=== PATIENT | male | born 1940 | race Caucasian/White ===

== ENCOUNTER → 2021-11-13 | Outpatient (CLI) | payer MEDICARE | END | disposition home or self-care (01) | LOC: SHCH 13:47 | PROVIDERS: ATTEND Internal Medicine Cardiovascular Disease | DX: I08.0 Rheumatic disorders of both mitral and aortic valves (principal); I11.9 Hypertensive heart disease without heart failure | CPT/HCPCS: 93306; 93356 ==

== ENCOUNTER → 2023-04-20 | Emergency (ER) | payer OTHER, MEDICARE ==
[~2023-04-20] VITALS: Ht 185.4 cm; Wt 104.3 kg
[~2023-04-20] MED LIST: APIX5TAB PO; ATOR20TA65 PO; Flecainide Acetate PO; GABA600T10 PO; IBUP-2070 PO; IBUPROFEN 600 MG TABLET PO ONE; METH-386 PO; METO50 PO; TETANUS/DIPHTHERIA TOXOID [ADULT] 0.5 ML VIAL IM ONE; VERA240T95 PO
[2023-04-20 12:44] VITALS: BP 126/74
== END ==
LOC: EDH 10:36
DX: S93.401A Sprain of unspecified ligament of right ankle, initial encounter (principal); S60.221A Contusion of right hand, initial encounter; S90.511A Abrasion, right ankle, initial encounter; I48.91 Unspecified atrial fibrillation; I10 Essential (primary) hypertension; Z79.01 Long term (current) use of anticoagulants; Z79.899 Other long term (current) drug therapy; Z85.46 Personal history of malignant neoplasm of prostate; Z90.49 Acquired absence of other specified parts of digestive tract; Z90.79 Acquired absence of other genital organ(s); W01.10XA Fall on same level from slipping, tripping and stumbling with subsequent striking against unspecified object, initial encounter; Y93.01 Activity, walking, marching and hiking; Y92.89 Other specified places as the place of occurrence of the external cause; Y99.8 Other external cause status
CPT/HCPCS: 73120; 73600; 90471; 90714; 93005

== ENCOUNTER → 2023-09-01 | Outpatient (CLI) | payer MEDICARE ==
[~2023-09-01] MED LIST changes: +FERR324T PO; -IBUP-2070 PO; -IBUPROFEN 600 MG TABLET PO ONE; +LUTE6CAP2 PO; +METO25TA6 PO; -METO50 PO; +NYSTPW TP; -TETANUS/DIPHTHERIA TOXOID [ADULT] 0.5 ML VIAL IM ONE
[2023-09-01 16:34] LABS: CREATININE 1.4 mg/dL (0.5-1.5); POTASSIUM 4.4 mmol/L (3.5-5.1)
== END | disposition home or self-care (01) ==
LOC: LAB 12:36
PROVIDERS: ATTEND Internal Medicine Cardiovascular Disease
DX: I95.1 Orthostatic hypotension (principal)
CPT/HCPCS: 36415; 80048; 83735

== ENCOUNTER → 2023-09-12 | Outpatient (CLI) | payer MEDICARE | END | disposition home or self-care (01) | LOC: RAH 09:23 | PROVIDERS: ATTEND Family Medicine | DX: N50.3 Cyst of epididymis (principal); N45.2 Orchitis | CPT/HCPCS: 76870 ==

== ENCOUNTER 2023-12-06 17:21 | Observation (INO) | payer MEDICARE ==
[~2023-12-06] VITALS: Ht 185.4 cm; Wt 95.3 kg
[2023-12-06 17:52] LABS: BASOPHILS # (AUTO) 0.04 K/uL (0.00-0.20); BASOPHILS % (AUTO) 0.5 % (0.0-5.0); EOSINOPHILS # (AUTO) 0.26 K/uL (0.00-0.70); EOSINOPHILS % (AUTO) 3.5 % (0.0-8.0); HEMATOCRIT 38.4 % (42-54); IMMATURE GRANULOCYTE ABSOLUTE 0.02 K/uL (0-1); LYMPHOCYTES # (AUTO) 0.5 K/uL (1.0-4.8); LYMPHOCYTES % (AUTO) 6.2 % (21.0-51.0); MEAN CORPUSCULAR HEMOGLOBIN 27.9 pg (27.0-33.0); MEAN CORPUSCULAR HGB CONC 31.3 g/dL (32.0-36.0); MEAN CORPUSCULAR VOLUME 89.3 fL (79-99); MONOCYTES # (AUTO) 0.8 K/uL (0.1-1.0); MONOCYTES % (AUTO) 11.2 % (3.0-13.0); NEUTROPHILS # (AUTO) 5.9 K/uL (1.8-7.7); NEUTROPHILS % (AUTO) 78.3 % (40.0-77.0); PLATELET COUNT (AUTO) 259 K/uL (130-400); RED CELL DISTRIBUTION WIDTH 15.8 % (11.0-15.5); WHITE BLOOD COUNT (AUTO) 7.5 K/uL (4.8-10.8)
[2023-12-06 18:05] LABS: CREATININE 1.3 mg/dL (0.5-1.5); POTASSIUM 4.1 mmol/L (3.5-5.1)
[2023-12-06 18:15] LABS: ALBUMIN 2.8 g/dL (3.5-5.0); BILIRUBIN,TOTAL 0.6 mg/dL (0.2-1.0); MAGNESIUM 2.2 mg/dL (1.80-2.40); TOTAL PROTEIN, SERUM 6.7 g/dL (6.0-8.3)
[2023-12-06] MEDS ORDERED: IOHEXOL 350 MG/ML 100ML INFUS..BTL IV ONE ×2 (21:58→22:21)
[2023-12-06] MEDS ORDERED: HYDROCODONE/ACETAMINOPHEN 5/325 MG TAB PO PRN (22:00)
[2023-12-06] MEDS ORDERED: ZOLPIDEM TARTRATE 5 MG TAB PO PRN (22:00)
[2023-12-06] MEDS ORDERED: ACETAMINOPHEN 325 MG TAB PO PRN ×2 (22:00)
[2023-12-06] MEDS ORDERED: HYDRALAZINE 20MG/ML VIAL IV PRN (22:00)
[2023-12-06] MEDS ORDERED: ONDANSETRON 4MG INJ IV PRN (22:00)
[2023-12-06] MEDS ORDERED: LACTULOSE 20 GM/30 ML UDCUP PO PRN (22:00)
[2023-12-06] MEDS ORDERED: NITROGLYCERIN 0.4 MG SL TAB SL PRN (22:00)
[2023-12-06] MEDS ORDERED: GUAIFENESIN-DM 200/20 MG 10 ML PO PRN (22:00)
[2023-12-06] MEDS ORDERED: ACETAMINOPHEN WITH CODEINE 1 TAB TAB PO PRN (22:00)
[2023-12-06] MEDS ORDERED: MAG/ALUM/SIMETH 30 ML UDCUP PO PRN (22:00)
[2023-12-06] MEDS ORDERED: ALBUTEROL 0.083% 2.5 MG/3 ML INH IH PRN (22:00)
[2023-12-06] MEDS ORDERED: DiphenhydrAMINE HCL 50 MG/ML VIAL IV PRN (22:00)
[2023-12-07] VITALS (9 sets, daily range): BP systolic 98–155; BP diastolic 71–80; PULSE 63–120; RESP 18–20; O2SAT 97–99
[2023-12-07] MEDS: LACTATED RINGERS 1000ML 1,000 ML IV SCH ×2 (01:39→18:16)
[2023-12-07] MEDS ORDERED: GABAPENTIN 300 MG CAPSULE PO SCH ×2 (02:00→21:00)
[2023-12-07 03:36] LABS: BASOPHILS # (AUTO) 0.04 K/uL (0.00-0.20); BASOPHILS % (AUTO) 0.6 % (0.0-5.0); EOSINOPHILS # (AUTO) 0.24 K/uL (0.00-0.70); EOSINOPHILS % (AUTO) 3.5 % (0.0-8.0); HEMATOCRIT 35.5 % (42-54); IMMATURE GRANULOCYTE ABSOLUTE 0.02 K/uL (0-1); LYMPHOCYTES # (AUTO) 0.5 K/uL (1.0-4.8); LYMPHOCYTES % (AUTO) 7.7 % (21.0-51.0); MEAN CORPUSCULAR HEMOGLOBIN 28.1 pg (27.0-33.0); MEAN CORPUSCULAR HGB CONC 31.8 g/dL (32.0-36.0); MEAN CORPUSCULAR VOLUME 88.3 fL (79-99); MONOCYTES # (AUTO) 0.8 K/uL (0.1-1.0); MONOCYTES % (AUTO) 10.9 % (3.0-13.0); NEUTROPHILS # (AUTO) 5.3 K/uL (1.8-7.7); PLATELET COUNT (AUTO) 258 K/uL (130-400); RED BLOOD CELL COUNT(AUTO) 4.02 MIL/uL (4.50-6.20); RED CELL DISTRIBUTION WIDTH 15.8 % (11.0-15.5); WHITE BLOOD COUNT (AUTO) 6.9 K/uL (4.8-10.8)
[2023-12-07 03:50] LABS: HEMOGLOBIN A1C 5.4 % (4.0-6.0)
[2023-12-07 03:58] LABS: ALANINE AMINOTRANSFERASE 12 U/L (12-78); ALBUMIN 2.6 g/dL (3.5-5.0); AMMONIA < 10 umol/L (11-32); ASPARTATE AMINOTRANSFERASE 12 U/L (10-37); BILIRUBIN,TOTAL 0.8 mg/dL (0.2-1.0); CARBON DIOXIDE 29 mmol/L (21-32); CHLORIDE 103 mmol/L (101-111); CREATINE KINASE, TOTAL 55 U/L (21-232); CREATININE 1.3 mg/dL (0.5-1.5); GLOMERULAR FILTR. RATE CALC 54 mL/min (>90); GLUCOSE,RANDOM 123 mg/dL (70-105); POTASSIUM 4.3 mmol/L (3.5-5.1); SODIUM SERUM 137 mmol/L (136-145); TOTAL PROTEIN, SERUM 6.3 g/dL (6.0-8.3); UREA NITROGEN, BLOOD 20 mg/dL (7-18)
[2023-12-07] MEDS ORDERED: [UNRECOGNIZED DRUG - OTHER] OU (04:44)
[2023-12-07] MEDS ORDERED: FAMOTIDINE 20MG VIAL IV SCH (09:00)
[2023-12-07] MEDS: FAMOTIDINE 20MG VIAL IV SCH (09:07)
[2023-12-07] MEDS: AMOX/CLAV 875/125MG TAB PO SCH (17:33)
[2023-12-08 00:51] VITALS: BP 123/70; PULSE 83; RESP 18
[2023-12-08] MEDS: AMOX/CLAV 875/125MG TAB PO SCH ×2 (01:09→13:53)
[2023-12-08] MEDS ORDERED: METOPROLOL TARTRATE 1 MG/ML 5ML VIAL IV ONE (04:00)
[2023-12-08 05:02] LABS: BASOPHILS # (AUTO) 0.04 K/uL (0.00-0.20); BASOPHILS % (AUTO) 0.6 % (0.0-5.0); EOSINOPHILS # (AUTO) 0.27 K/uL (0.00-0.70); EOSINOPHILS % (AUTO) 4.2 % (0.0-8.0); HEMATOCRIT 36.7 % (42-54); IMMATURE GRANULOCYTE ABSOLUTE 0.03 K/uL (0-1); LYMPHOCYTES # (AUTO) 0.5 K/uL (1.0-4.8); MEAN CORPUSCULAR HEMOGLOBIN 28.2 pg (27.0-33.0); MEAN CORPUSCULAR HGB CONC 31.6 g/dL (32.0-36.0); MEAN CORPUSCULAR VOLUME 89.3 fL (79-99); MONOCYTES # (AUTO) 0.9 K/uL (0.1-1.0); MONOCYTES % (AUTO) 13.7 % (3.0-13.0); NEUTROPHILS # (AUTO) 4.7 K/uL (1.8-7.7); PLATELET COUNT (AUTO) 245 K/uL (130-400); RED BLOOD CELL COUNT(AUTO) 4.11 MIL/uL (4.50-6.20); RED CELL DISTRIBUTION WIDTH 15.6 % (11.0-15.5); WHITE BLOOD COUNT (AUTO) 6.5 K/uL (4.8-10.8)
[2023-12-08 05:16] LABS: ALBUMIN 2.5 g/dL (3.5-5.0); BILIRUBIN,TOTAL 0.7 mg/dL (0.2-1.0); CREATININE 1.2 mg/dL (0.5-1.5); MAGNESIUM 2.1 mg/dL (1.80-2.40); POTASSIUM 3.9 mmol/L (3.5-5.1); TOTAL PROTEIN, SERUM 6.1 g/dL (6.0-8.3)
[2023-12-08] MEDS ORDERED: METOPROLOL TARTRATE 25 MG TAB ONE (05:39)
[2023-12-08 05:45] VITALS: BP 115/63; PULSE 85; RESP 18
[2023-12-08 08:00] VITALS: BP 91/62; PULSE 83; RESP 18; O2SAT 99
[2023-12-08] MEDS: FAMOTIDINE 20MG VIAL IV SCH (08:19)
[2023-12-08] MEDS ORDERED: METOPROLOL TARTRATE 25 MG TAB PO SCH (09:00)
[2023-12-08] MEDS ORDERED: APIXABAN 5 MG TABLET PO SCH (09:00)
[2023-12-08 12:00] VITALS: BP 94/66; PULSE 91; RESP 18
[2023-12-08] MEDS ORDERED: AMOX1TAB16 PO (13:22)
== END 2023-12-08 14:50 | disposition home or self-care (01) ==
LOC: EDH 17:21 → EDHIP 17:22 → UNDOADMOB 17:22 → EDHIP 21:40 → 4BH 12-07 04:37
PROVIDERS: ADMIT Internal Medicine Critical Care Medicine; ATTEND Internal Medicine Critical Care Medicine
DX: H70.001 Acute mastoiditis without complications, right ear (principal); I48.91 Unspecified atrial fibrillation; J43.8 Other emphysema; J32.0 Chronic maxillary sinusitis; I10 Essential (primary) hypertension; N17.9 Acute kidney failure, unspecified; E78.5 Hyperlipidemia, unspecified; E46 Unspecified protein-calorie malnutrition; E66.01 Morbid (severe) obesity due to excess calories; R55 Syncope and collapse; G45.9 Transient cerebral ischemic attack, unspecified; R29.700 NIHSS score 0; K56.609 Unspecified intestinal obstruction, unspecified as to partial versus complete obstruction; Z85.46 Personal history of malignant neoplasm of prostate; Z85.51 Personal history of malignant neoplasm of bladder; Z85.72 Personal history of non-Hodgkin lymphomas; Z85.828 Personal history of other malignant neoplasm of skin; Z79.01 Long term (current) use of anticoagulants; Z93.3 Colostomy status; Z68.27 Body mass index [BMI] 27.0-27.9, adult; Z86.2 Personal history of diseases of the blood and blood-forming organs and certain disorders involving the immune mechanism; Z79.899 Other long term (current) drug therapy
CPT/HCPCS: 70450; 99285; 83735 ×3; 84484 ×2; 80053 ×3; 83880 ×2; 85025 ×3; 36415 ×3; 71045; 70496; 70498; 93880; 93005; 96374; 96361; 83036; 82550; 82140; 87077; 87088; 87186; 83605; 93306; 93356; 97161; 97116; 97530 ×2; 92522; 92610; 84145; 96376; 96375; G0378 ×38; Q9967; J3490 ×3; G8980-CI; G8983-CI

== ENCOUNTER → 2023-12-26 | Outpatient (CLI) | payer MEDICARE ==
[~2023-12-26] MED LIST changes: +AMOX1TAB16 PO; -ATOR20TA65 PO; +[UNRECOGNIZED DRUG - OTHER] OU
[2023-12-26] MEDS: REGADENOSON 0.4 MG/5 ML PF SYG IVP ONE (11:36)
== END | disposition home or self-care (01) ==
LOC: SHCH 09:16
PROVIDERS: ATTEND Internal Medicine Cardiovascular Disease
DX: I47.10 Supraventricular tachycardia, unspecified (principal); I42.0 Dilated cardiomyopathy; I95.1 Orthostatic hypotension; I48.0 Paroxysmal atrial fibrillation; E03.9 Hypothyroidism, unspecified; Z79.899 Other long term (current) drug therapy
CPT/HCPCS: 78452; 96374; 93017; J2785; A9500 ×2

== ENCOUNTER → 2024-02-23 | Outpatient (CLI) | payer MEDICARE ==
[~2024-02-23] MED LIST changes: -AMOX1TAB16 PO; +ATOR20TA65 PO; +DOCU-116 PO; +DRON400T7 PO; +FAMO20TA8 PO; -Flecainide Acetate PO; +LEVO750T68 PO; -VERA240T95 PO; -[UNRECOGNIZED DRUG - OTHER] OU; +[UNRECOGNIZED DRUG - OTHER] PO
[2024-02-23 12:37] LABS: CREATININE 1.3 mg/dL (0.5-1.3); POTASSIUM 4.5 mmol/L (3.5-5.1)
== END | disposition home or self-care (01) ==
LOC: LAB 09:54
PROVIDERS: ATTEND Internal Medicine Cardiovascular Disease
DX: I50.22 Chronic systolic (congestive) heart failure (principal)
CPT/HCPCS: 36415; 80048

== ENCOUNTER → 2024-04-13 | Outpatient (CLI) | payer MEDICARE ==
[2024-04-13 12:13] LABS: CREATININE 1.3 mg/dL (0.5-1.3); POTASSIUM 4.9 mmol/L (3.5-5.1)
== END | disposition home or self-care (01) ==
LOC: LAB 08:13
PROVIDERS: ATTEND Internal Medicine Cardiovascular Disease
DX: I10 Essential (primary) hypertension (principal)
CPT/HCPCS: 36415; 80048

== ENCOUNTER 2024-10-20 18:05 | Emergency (ER) | payer MEDICARE ==
[~2024-10-20] VITALS: Ht 188 cm; Wt 81.6 kg
[~2024-10-20 18:05] MED LIST changes: +GABA-1405 PO; -GABA600T10 PO
[2024-10-20] MEDS ORDERED: APIX5TAB PO (19:01)
[2024-10-20] MEDS ORDERED: CYAN-35 PO (19:01)
[2024-10-20] MEDS ORDERED: DRON400T7 PO (19:01)
[2024-10-20] MEDS ORDERED: MAGN100C5 PO (19:01)
[2024-10-20] MEDS ORDERED: FERR324T23 PO (19:01)
[2024-10-20] MEDS ORDERED: GABA-534 PO (19:01)
[2024-10-20] MEDS ORDERED: MAGN100T6 PO (19:01)
[2024-10-20] MEDS ORDERED: ATOR10 PO (19:01)
[2024-10-20 19:09] LABS: SARS-CoV-2, RNA, NAAT NEGATIVE SARS CoV-2 (NEGATIVE)
[2024-10-20 19:11] LABS: BASOPHILS # (AUTO) 0.02 K/uL (0.00-0.20); BASOPHILS % (AUTO) 0.1 % (0.0-5.0); EOSINOPHILS # (AUTO) 0.01 K/uL (0.00-0.70); EOSINOPHILS % (AUTO) 0.1 % (0.0-8.0); HEMATOCRIT 29.5 % (42-54); IMMATURE GRANULOCYTE ABSOLUTE 0.34 K/uL (0-1); LYMPHOCYTES # (AUTO) 0.4 K/uL (1.0-4.8); LYMPHOCYTES % (AUTO) 2.8 % (21.0-51.0); MEAN CORPUSCULAR HEMOGLOBIN 25.1 pg (27.0-33.0); MEAN CORPUSCULAR HGB CONC 29.8 g/dL (32.0-36.0); MEAN CORPUSCULAR VOLUME 84.3 fL (79-99); MONOCYTES % (AUTO) 14.5 % (3.0-13.0); NEUTROPHILS # (AUTO) 10.8 K/uL (1.8-7.7); PLATELET COUNT (AUTO) 331 K/uL (130-400); RED CELL DISTRIBUTION WIDTH 18.6 % (11.0-15.5); WHITE BLOOD COUNT (AUTO) 13.5 K/uL (4.8-10.8)
[2024-10-20 19:17] LABS: CREATININE 1.3 mg/dL (0.5-1.3); POTASSIUM 4.7 mmol/L (3.5-5.1)
[2024-10-20 19:18] LABS: INFLUENZA TYPE A Negative For Type A (NEGATIVE); INFLUENZA TYPE B Negative For Type B (NEGATIVE)
[2024-10-20 19:21] LABS: MAGNESIUM 1.9 mg/dL (1.80-2.40)
[2024-10-20 19:28] LABS: B-TYPE NATRIURETIC PEPTIDE 461 pg/mL (0-100)
--- NOTE | 2024-10-20 19:29 | HMCIMG ---
CHEST 1VW REASON: sob COMPARISON: 02/16/2024 FINDINGS: Single view of the chest was obtained. Lungs are clear. Heart size is normal. There is no pulmonary vascular congestion. Mediastinum and bony thorax appear unremarkable. IMPRESSION: 1. Normal single view chest x-ray.
[2024-10-20 19:31] LABS: INR 1.22 (0.85-1.15)
[2024-10-20 19:33] LABS: PARTIAL THROMBOPLASTIN TIME 29.6 SEC (26.3-35.5)
[2024-10-20] MEDS: metoPROLOL tartRATE 1 MG/ML 5ML VIAL IV ONE (19:34)
[2024-10-20 19:44] LABS: APPEARANCE,URINE CLOUDY (CLEAR); BILIRUBIN,URINE NEGATIVE (NEGATIVE); COLOR,URINE YELLOW (YELLOW); GLUCOSE, URINE (UA) NEGATIVE (NEGATIVE); KETONES,URINE NEGATIVE (NEGATIVE); LEUKOCYTE ESTERASE ,URINE 250 Leu/uL (NEGATIVE); NITRATE,URINE NEGATIVE (NEGATIVE); PROTEIN,URINE 100 mg/dL (NEGATIVE); UROBILINOGEN,URINE >=8.0 mg/dL (0.2-1.0)
[2024-10-20 19:45] LABS: ADD UA MICROSCOPIC YES
[2024-10-20 19:47] LABS: BACTERIA,URINE RARE /HPF (None Seen); MUCUS,URINE MOD LPF (None Seen); SQUAMOUS EPITHELIAL CELL,UR RARE /HPF (0-2); TRANSITIONAL EPI CELLS,URINE FEW /HPF (None Seen); WBC,URINE 51-100 /HPF (0-1)
--- NOTE | 2024-10-20 19:53 | ERN ---
ED Note History of Present Illness Stated Complaint: SOB Chief Complaint: Shortness of Breath Time Seen by MD: 18:59 Dictation: 84-year-old male with a past medical history of CAD/CHF/atrial fibrillation who presents to the ER complaining of shortness breath, not feeling well, patient also reports that his recently. Patient denies chest pain, denies abdominal pain, no fever or chills. Allergies: Coded Allergies: No Known Drug Allergies (Unverified Allergy, Unknown, 07/14/23) Home Meds Active Scripts Cephalexin Monohydrate (Keflex) 500 Mg Cap, 1 CAP PO TID for 7 Days, #28 CAP 0 Refills Prov:ROSENDO VERAS MD 10/20/24 Levofloxacin (Levaquin 750Mg Tabs) 750 Mg Tablet, 750 MG PO DAILY for 10 Days, #10 TAB Prov:CARLOS ALBERTO ADAMES NP 02/19/24 Docusate Sodium (Colace) 100 Mg Capsule, 100 MG PO DAILY, #30 CAP 0 Refills Prov:KIGN DENNIS PATIENT FINANCIAL SERVICES MANAGER 02/11/24 Famotidine (Famotidine) 20 Mg Tablet, 20 MG PO DAILY, #30 TAB 0 Refills Prov:KING DENNIS PATIENT FINANCIAL SERVICES MANAGER 02/11/24 Dronedarone Hydrochloride (Multaq) 400 Mg Tablet, 400 MG PO BID, #60 TAB Prov:KING DENNIS PATIENT FINANCIAL SERVICES MANAGER 02/11/24 Apixaban (Eliquis) 5 Mg Tablet, 5 MG PO BID, #60 TAB 1 Refill Prov:KING DENNIS PATIENT FINANCIAL SERVICES MANAGER 02/11/24 Reported Medications Magnesium Citrate (Magnesium Citrate) 100 Mg Capsule, 250 MG PO BID, CAP 10/20/24 Magnesium Citrate (Magnesium Citrate) 100 Mg Tablet, 1 TAB PO HS for 30 Days, #30 TAB 0 Refills 10/20/24 Cyanocobalamin (Vitamin B-12) (Vitamin B-12) 1,000 Mcg Capsule, 1000 CAP PO DAILY for 30 Days, #30 CAP 0 Refills 10/20/24 Ferrous Gluconate (Ferrous Gluconate) 324 Mg (37.5 Mg Iron) Tablet, 1 TAB PO DAILY for iron for 30 Days, #30 TAB 0 Refills 10/20/24 Gabapentin (Gabapentin) 400 Mg Capsule, 300 MG PO BID, CAP 10/20/24 Apixaban (Eliquis) 5 Mg Tablet, 1 TAB PO BID for 30 Days, #60 TAB 0 Refills 10/20/24 Metoprolol Tartrate (Metoprolol Tartrate) 25 Mg Tablet, 1 TAB PO BID for 30 Days, #60 TAB 0 Refills 10/20/24 Atorvastatin Calcium (LIPITOR) 20 Mg Tab, 1 TAB PO DAILY for 30 Days, #30 TAB 0 Refills 10/20/24 Methimazole (Methimazole) 5 Mg Tablet, 1 TAB PO DAILY for 30 Days, #30 TAB 0 Refills 10/20/24 Dronedarone Hydrochloride (Multaq) 400 Mg Tablet, 400 MG PO BID, TAB 10/20/24 Gabapentin (Gabapentin) 600 Mg Tablet, 600 MG PO BEDTIME, TAB 02/16/24 Atorvastatin Calcium (Atorvastatin Calcium) 20 Mg Tablet, 20 MG PO AM, TAB 02/03/24 [I-Cap Eye Vitamin] 5 mg No Conflict Check, 1 TAB PO DAILY 12/07/23 Ferrous Gluconate (Ferrous Gluconate) 324 Mg (38 Mg Iron) Tablet, 324 MG PO HS, TAB 07/14/23 Lutein (Lutein) 6 Mg Capsule, 6 MG PO DAILY, CAP 07/14/23 Nystatin (Nystop/Mycostatin Pwdr) 100,000 Unit/Gram Powder, 1 APPL TP AD, APPL ON SKIN AROUND UROSTOMY 07/14/23 Metoprolol Tartrate (Metoprolol Tartrate) 25 Mg Tablet, 25 MG PO BID, TAB 07/14/23 Methimazole (Methimazole) 5 Mg Tablet, 5 MG PO DAILY, TAB 07/27/22 Past Medical History Past Medical History: A-Fib, High Cholesterol, Heart Disease, Hypertension, Hyperthyroid, UTI Additional Past Medical Hx: BLADDER AND PROSTATE CA / LYMPHOMA Surgical History: Other Surgical History Other: UROSTOMY Social History: Negative, Other Review of System Dictation NEGATIVE EXCEPT PER HPI Constitutional: Negative for fever,chills, and weight loss Eyes: Negative for injury, pain,redness, and discharge ENT: Negative for injury,pain or swelling Cardiovascular: denies chest pain, palpitations, and edema Respiratory: Shortness breath Abdomen/GI: Negative for abdominal pain, nausea, vomiting, diarrhea, and constipation Back: Negative for injury and pain : Negative for injury, bleeding and discharge MS/Extremity: Negative for injury and deformity Skin: Negative for rash, and discoloration Neuro: Negative for headache, weakness, numbness, tingling, and seizure Psych: Negative for suicide ideation, homicidal ideation, and hallucinations Initial Vital Sign VS Vital Signs Date Time Temp Pulse Resp B/P (MAP) Pulse Ox O2 Delivery O2 Flow Rate FiO2 10/20/24 18:06 98.4 118 20 107/72 98 Nasal Cannula 6.0 10/20/24 19:29 21 Physical Exam Dictation General: awake, alert, NAD Head/Face: Normocephalic, atraumatic Eyes: PERRL, EOMI, vision at baseline ENT: oral cavity clear, TMs clear, no signs of infection Neck: Trachea midline, supple, no nuchal rigidity Cardiovascular: RRR, normal S1/S2, No MRGs, no JVD Respiratory: CTAB, no respiratory distress, No rales or wheezes Abdomen: Soft , no tender Skin: Warm, dry, normal turgor, no rash MS/Extremity: Pulses equal, no cyanosis, neurovascular intact, FROM Neuro: COAx4, GCS 15, strength 5/5, CN 2-12 intact, normal cerebellar exam, normal gait, Psych: Normal behavior, mood, and affect normal Results (Laboratory/Radiology) Laboratory/Radiology Laboratory Tests Test 10/20/24 18:46 10/20/24 18:59 10/20/24 19:19 Influenza Type A Antigen Negative For Type A Influenza Type B Antigen Negative For Type B SARS-CoV-2, RNA, NAAT NEGATIVE SARS CoV-2 White Blood Count 13.5 K/uL (4.8-10.8) H Red Blood Count 3.50 MIL/uL (4.50-6.20) L Hemoglobin 8.8 g/dL (14.0-18.0) L Hematocrit 29.5 % (42-54) L Mean Corpuscular Volume 84.3 fL (79-99) Mean Corpuscular Hemoglobin 25.1 pg (27.0-33.0) L Mean Corpuscular Hemoglobin Concent 29.8 g/dL (32.0-36.0) L Red Cell Distribution Width 18.6 % (11.0-15.5) H Platelet Count 331 K/uL (130-400) Mean Platelet Volume 9.8 fL (7.5-10.5) Immature Granulocyte % (Auto) 2.5 % (0-1) H Neutrophils (%) (Auto) 80.0 % (40.0-77.0) H Lymphocytes (%) (Auto) 2.8 % (21.0-51.0) L Monocytes (%) (Auto) 14.5 % (3.0-13.0) H Eosinophils (%) (Auto) 0.1 % (0.0-8.0) Basophils (%) (Auto) 0.1 % (0.0-5.0) Neutrophils # (Auto) 10.8 K/uL (1.8-7.7) H Lymphocytes # (Auto) 0.4 K/uL (1.0-4.8) L Monocytes # (Auto) 2.0 K/uL (0.1-1.0) H Eosinophils # (Auto) 0.01 K/uL (0.00-0.70) Basophils # (Auto) 0.02 K/uL (0.00-0.20) Absolute Immature Granulocyte (auto 0.34 K/uL (0-1) Nucleated Red Blood Cells 0.0 % (0.0-0.19) White Cell Morphology Comment See comments Red Blood Cell Morphology See comments Prothrombin Time 13.0 SEC (9.6-11.6) H Prothromb Time International Ratio 1.22 (0.85-1.15) H Activated Partial Thromboplast Time 29.6 SEC (26.3-35.5) Sodium Level 138 mmol/L (136-145) Potassium Level 4.7 mmol/L (3.5-5.1) Chloride Level 104 mmol/L (101-111) Carbon Dioxide Level 27 mmol/L (21-32) Blood Urea Nitrogen 20 mg/dL (7-18) H Creatinine 1.3 mg/dL (0.5-1.3) Glomerular Filtration Rate Calc 54 mL/min (>90) Random Glucose 100 mg/dL (70-105) Total Calcium 8.4 mg/dL (8.5-10.1) L Magnesium Level 1.90 mg/dL (1.80-2.40) Total Creatine Kinase 250 U/L (21-232) #H Troponin I High Sensitivity 15 ng/L (4-75) B-Type Natriuretic Peptide 461 pg/mL (0-100) H Urine Color YELLOW (YELLOW) Urine Appearance CLOUDY (CLEAR) H Urine pH 6.0 (5.0-8.0) Urine Specific [place] 1.015 (1.001-1.031) Urine Protein 100 mg/dL (NEGATIVE) H Urine Glucose (UA) NEGATIVE mg/dL (NEGATIVE) Urine Ketones NEGATIVE mg/dL (NEGATIVE) Urine Occult Blood +- (TRACE) (NEGATIVE) H Urine Nitrate NEGATIVE (NEGATIVE) Urine Bilirubin NEGATIVE mg/dL (NEGATIVE) Urine Urobilinogen >=8.0 mg/dL (0.2-1.0) H Urine Leukocyte Esterase 250 Bi/uL (NEGATIVE) H Urine RBC 6-10 /HPF (0-1) H Urine WBC 51-100 /HPF (0-1) H Urine Squamous Epithelial Cells RARE /HPF (0-2) Urine Transitional Epithelial Cells FEW /HPF (None Seen) Urine Bacteria RARE /HPF (None Seen) ED Course ED Course Orders Procedure Category Date Status Time Cbc With Differential LAB 10/20/24 Complete 18:14 Prothrombin Time With LAB 10/20/24 Complete INR 18:14 B-Type Natriuretic LAB 10/20/24 Complete Peptide 18:14 Chest 1vw RAD 10/20/24 Resulted 18:14 12 Lead Ekg Tracing- EKG 10/20/24 Logged Technical 18:14 Magnesium LAB 10/20/24 Complete 18:14 Creatine Kinase, Total LAB 10/20/24 Complete 18:14 Troponin I High LAB 10/20/24 Complete Sensitivity 18:14 Urinalysis Profile LAB 10/20/24 Complete 18:14 Partial LAB 10/20/24 Complete Thromboplastin Time 18:14 Basic Metabolic Panel LAB 10/20/24 Complete 18:14 Covid Rna Naat LAB 10/20/24 Complete 18:14 Influenza Type A & B, LAB 10/20/24 Complete Rapid 18:14 Metoprolol Tartrate PHA 10/20/24 Complete (Lopressor) 19:30 Culture Urine TIMOTHY 10/20/24 In Process 19:45 Ceftriaxone 2gm Vial PHA 10/20/24 Complete (Rocephin 2gm Inj) 20:30 Current Medications Medications (Trade) Dose Ordered Sig/Stalin Route PRN Reason Start Time Stop Time Status Last Admin Dose Admin Ceftriaxone Sodium (Rocephin 2gm Inj) 2 gm ONCE ONCE IVPB 10/20/24 20:30 10/20/24 20:31 DC 10/20/24 20:29 Metoprolol Tartrate (loprESSOR) 5 mg ONCE ONCE IV 10/20/24 19:30 10/20/24 19:31 DC 10/20/24 19:34 Vital Signs Date Time Temp Pulse Resp B/P (MAP) Pulse Ox O2 Delivery O2 Flow Rate FiO2 10/20/24 20:59 98.4 96 20 104/59 97 Room Air* 0 21 10/20/24 20:05 98.1 96 20 101/63 91 Room Air* 0 21 10/20/24 19:48 99.0 90 26 100/61 91 Nasal Cannula* 3 32 10/20/24 19:34 108 118/60 10/20/24 19:29 99.0 108 26 118/60 91 Room Air* 0 21 10/20/24 18:06 98.4 118 20 107/72 98 Nasal Cannula 6.0 Medical Decision Making MDM 84-year-old male with a past medical history of CAD/CHF/atrial fibrillation , prostate cancer, bladder cancer, who presents to the ER complaining of shortness breath, not feeling well, patient also reports that his recently. Patient denies chest pain, denies abdominal pain, no fever or chills. On evaluation patient has atrial fibrillation with a heart rate in the 110's Patient reported that he took his medication for AFib today. UA collected to rule out UTI---> positive Metoprolol 5 mg IV ordered. Ceftriaxone 2 g ordered Patient re-evaluated at bedside, he is saturated above 92% on room air. Plan is to discharge patient home and continue home medication plus oral antibiotics for UTI. Patient was recommended to drink plenty amount of water. IV fluids not given since patient has history of CHF. DX & DISP Disposition: Discharge Departure Impression: Primary Impression: UTI (urinary tract infection) Additional Impression: Afib Condition: Improved Scripts Cephalexin Monohydrate (Keflex) 500 Mg Cap 1 CAP PO TID for 7 Days, #28 CAP 0 Refills Prov: ROSENDO VERAS MD 10/20/24 Referrals: MADELYN GRADY MD (PCP) Time of Disposition: 21:03 ROSENDO VERAS MD Oct 20, 2024 19:53
[2024-10-20] MEDS: CEFTRIAXONE 2GM VIAL IVPB ONE (20:29)
[2024-10-20] MEDS ORDERED: CEPH500B PO (20:51)
[2024-10-20 20:59] VITALS: BP 104/59; PULSE 96; RESP 20; TEMP 98.4; O2SAT 97
--- NOTE | 2024-10-21 07:40 | EKG ---
[facility] Test Date: 2024-10-20 Test Time: 19:01:30 Pat Name: CATY MANJARREZ Department: ED Room: Gender: M Manager Group: [id number] : 1940 Requested By: NISHA AGUILAR Order Number: [id number] Reading MD: Royce Justice Measurements Intervals [place] Rate: 103 P: 0 MI: 0 QRS: -45 QRSD: 91 T: 61 QT: 376 QTc: 494 Interpretive Statements Atrial fibrillation Left anterior fascicular block Low voltage, precordial leads Probable anteroseptal infarct, old Compared to ECG 02/16/2024 15:27:00 Left anterior fascicular block now present Low QRS voltage now present Myocardial infarct finding still present Electronically Signed On 10-21-2024 14:05:47 STAFF DESIGN ENGINEER by Royce Justice Please click the below link to view image of tracing.
== END 2024-10-20 21:05 | disposition home or self-care (01) ==
LOC: EDH 18:05
DX: N39.0 Urinary tract infection, site not specified (principal); I48.91 Unspecified atrial fibrillation; R06.02 Shortness of breath; E78.00 Pure hypercholesterolemia, unspecified; I10 Essential (primary) hypertension; Z20.822 Contact with and (suspected) exposure to COVID-19; Z79.01 Long term (current) use of anticoagulants; Z79.899 Other long term (current) drug therapy
CPT/HCPCS: 99285; 96365; 71045; 87635; 96375; 82550; 83735; 84484; 80048; 83880; 85025; 85610; 85730; 87086 ×2; 87186; 87804 ×2; 81001; 36415; 93005; J3490; J0696

== ENCOUNTER → 2024-10-29 | Outpatient (CLI) | payer MEDICARE ==
[~2024-10-29] MED LIST changes: +ATOR10 PO; +CEPH500B PO; +CYAN-35 PO; +FERR324T23 PO; +GABA-534 PO; +MAGN100C5 PO; +MAGN100T6 PO
[2024-10-29 17:30] LABS: ALBUMIN 2.2 g/dL (3.5-5.0); CREATININE 1.1 mg/dL (0.5-1.3); POTASSIUM 4.7 mmol/L (3.5-5.1); TOTAL PROTEIN, SERUM 6.2 g/dL (6.0-8.3)
== END | disposition home or self-care (01) ==
LOC: LAB 14:45
PROVIDERS: ATTEND Nurse Practitioner Acute Care
DX: I10 Essential (primary) hypertension (principal)
CPT/HCPCS: 36415; 80053

== ENCOUNTER → 2024-11-11 | Outpatient (CLI) | payer MEDICARE ==
[~2024-11-11] MED LIST changes: +IOHEXOL 350 MG/ML 100ML INFUS..BTL IV ONE
--- NOTE | 2024-11-11 12:33 | HMCIMG ---
CT CHEST/ABD/PELV W/CONRAST REASON: ESSENTIAL HYPERTENSION COMPARISON: 07/14/2023 TECHNIQUE: Images are obtained from thoracic inlet through the symphysis pubis following IV contrast, 100 cc Omnipaque 350. FINDINGS: There is some parenchymal scarring in both lung apices. There are mild chronic changes in both lungs with some peripheral honeycombing and a few scattered blebs or bulla. There are no focal masses. There is no pleural effusion. Contrast outlines normal appearing hilar and mediastinal structures. There is no mass or lymphadenopathy. Chest wall structures appear unremarkable including both axillary regions. There are multiple large poorly defined areas of decreased attenuation in the liver consistent with metastatic disease. Largest is under the dome of the diaphragm measuring 9.5 cm. There is a 7.4 cm mass lateral segment left lobe of the liver. There are additional masses as well. Spleen and kidneys appear normal. Pancreas appears unremarkable. There are stones in an otherwise normal-appearing gallbladder. There is wall thickening in the colon at the junction of the transverse and descending colon, in the splenic flexure. There are is stranding and irregularity of the wall. There are some soft tissue nodules in the adjacent mesentery measuring up to 1 cm. These findings are suspicious of the colon neoplasm with some extension into the adjacent mesenteric fat. Colonoscopy recommended in this regard. Bowel loops appear otherwise normal, there is no evidence of obstruction. There is no retroperitoneal lymphadenopathy. There are no focal fluid collections and there is no free air or fluid. Ileal loop is again noted with a ureterostomy, there is been a total cystectomy. Pelvic soft tissues are otherwise unremarkable. There is no pelvic lymphadenopathy. Bones appear unremarkable with the exception of mild compression deformity of L2, this is unchanged since 07/14/2023. IMPRESSION: 1. Probable poorly defined mass splenic flexure of the colon with involvement of the adjacent mesentery, there are some adjacent soft tissue nodules up to 1 cm which could be direct metastatic disease or lymphadenopathy. 2. Extensive hepatic metastatic disease. 3. No acute finding in the chest. 4. Cholelithiasis without acute cholecystitis. 5. Otherwise unremarkable CT abdomen and pelvis.
== END | disposition home or self-care (01) ==
LOC: RAH 10:42
PROVIDERS: ATTEND Internal Medicine Cardiovascular Disease
DX: K80.20 Calculus of gallbladder without cholecystitis without obstruction (principal); I10 Essential (primary) hypertension; C78.7 Secondary malignant neoplasm of liver and intrahepatic bile duct; K76.89 Other specified diseases of liver; J98.4 Other disorders of lung; K63.89 Other specified diseases of intestine
CPT/HCPCS: 71260; 74177; Q9967

== ENCOUNTER 2024-11-24 08:14 | Day surgery (SDC) | payer MEDICARE ==
[2024-11-24] VITALS (8 sets, daily range): BP systolic 118–144; BP diastolic 71–84; PULSE 75–88; RESP 14–17; TEMP 97.5
[~2024-11-24 08:14] MED LIST changes: -IOHEXOL 350 MG/ML 100ML INFUS..BTL IV ONE
[2024-11-24 09:15] LABS: HEMATOCRIT 35.7 % (42-54); MEAN CORPUSCULAR HEMOGLOBIN 27.1 pg (27.0-33.0); MEAN CORPUSCULAR HGB CONC 30.3 g/dL (32.0-36.0); MEAN CORPUSCULAR VOLUME 89.7 fL (79-99); PLATELET COUNT (AUTO) 287 K/uL (130-400); RED BLOOD CELL COUNT(AUTO) 3.98 MIL/uL (4.50-6.20); RED CELL DISTRIBUTION WIDTH 18.6 % (11.0-15.5); WHITE BLOOD COUNT (AUTO) 9.9 K/uL (4.8-10.8)
[2024-11-24 09:27] LABS: INR 1.07 (0.85-1.15); PROTHROMBIN TIME 11.9 SEC (9.6-11.6)
[2024-11-24 09:29] LABS: PARTIAL THROMBOPLASTIN TIME 29.5 SEC (26.3-35.5)
[2024-11-24] MEDS ORDERED: FENTanyl CITRate PF 50 MCG/1 ML 2ML VIAL ONE (11:00)
[2024-11-24] MEDS ORDERED: MIDAZOLAM HCL 1 MG/ML 2ML VIAL ONE (11:00)
[2024-11-24] MEDS: 0.9%NACL 1000ML 1,000 ML IV SCH (11:11)
--- NOTE | 2024-11-24 12:06 | HMCIMG ---
CT ABDOMEN/PELVIS W/O CONTRAST REASON: POST LIVER BX, ABDOMINAL PAIN COMPARISON: 11/11/2024 FINDINGS: Lung bases are clear. There are multiple focal liver lesions. There are biopsy changes in the inferior portion of the left lobe liver lesion, with some FloSeal visible. There is no evidence of a hemorrhagic complication. Spleen and kidneys appear unremarkable as does the pancreas. There are stones in an otherwise normal-appearing gallbladder. There is no free air or fluid. There are no focal fluid collections. Visualized bowel loops appear unremarkable. There is no retroperitoneal or pelvic lymphadenopathy. There is no free fluid in the pelvic cul-de-sac. Ostomy is noted in the right lower quadrant. Anterior abdominal wall appears otherwise unremarkable. Bones appear normal. IMPRESSION: 1. Biopsy changes along the inferior margin of the left lobe liver mass, there is no evidence of hemorrhage or other postbiopsy complication. CT was performed with one or more following dose reduction techniques: automated exposure control, adjustment of the mA and kv according to patient's size, or use of a iterative reconstruction technique.
[2024-11-24] MEDS: acetaMINOPHEN WITH coDEINE 1 TAB TAB ONE (12:13)
--- NOTE | 2024-11-24 12:15 | NUR ---
U/S GD LIVER BX PROCEDURE PERFORMED BY DR Kaye SCHMITZ. PUNCTURE SITE RUQ AND PATIENT TOLERATED PROCEDURE FAIR. SPECIMEN X 3 COLLECTED AND SENT TO LAB. END OF PROCEDURE AT 1130. BIOPSY NEEDLE REMOVED AND DRESSING APPLIED. NO BLEEDING NOTED. PATIENT COMPLAINED OF PAIN OF 9 FROM A PAIN SCALE 1-10. DR Kaye SCHMITZ NOTIFIED AND ORDERED A CT ABD/PELVIS WITH OUT CONTRAST STAT. CT SCAN DONE AND REVIEWED BY DR Kaye SCHMITZ. NO BLEEDING OR COMPLICATIONS NOTED. TYLENOL W/CODEINE TWO TABLETS PO GIVEN ORDERED. PATIENT MONITORED FOR 15MIN WITH PAIN SUBSIDING. REPORT GIVEN TO ZAHRAA UGARTE AND PATIENT TRANSPORTED TO DAY PATIENT 9 VIA BED AT 1215. AAO X3 WITH NO C/O PAIN.
--- NOTE | 2024-11-24 14:16 | NUR ---
Remains stable with vs wnl. Stated some "mild pressure" to BX site but denies pain. Dressing clean and dry. No evidence of bleeding or bruising to area. Ate 50% of lunch and tolerates fluids. Remains on bedrest and appears relaxed watching TV. Call light in reach. Reported off in full to ZAHRAA Castilol.
--- NOTE | 2024-11-24 14:58 | HMCIMG ---
US BIOPSY LIVER IR REASON: LT LOBE LIVER MASS COMPARISON: None TECHNIQUE: Liver mass biopsy was performed under direct ultrasound guidance. Procedure was discussed with the patient including risks and benefits. Left lobe liver mass was identified with preprocedure ultrasound and overlying skin prepped and draped in a sterile fashion and anesthetized with 1% Xylocaine infiltration. 50 mcg fentanyl and 1 mg Versed were administered for mild conscious sedation. 16-gauge trocar was advanced into the mass under direct ultrasound guidance. A total of 3 18-gauge by 3.3 cm core samples were obtained. FloSeal was then injected through the stylette on withdrawal. Patient complained of significant pain following the procedure. Additional 50 mcg fentanyl was administered. Patient to continue to complain of severe pain. CT abdomen pelvis was performed without contrast to evaluate possible postprocedure bleeding. Biopsy site was identified in the inferior portion of the left lobe mass. There is no evidence of adjacent hematoma. There is no evidence of free peritoneal fluid to suggest active bleeding. IMPRESSION: 1. Ultrasound-guided core biopsy left lobe liver mass as described above.
--- NOTE | 2024-11-24 15:45 | NUR ---
PATIENT DISCHARGED FROM FACILITY VIA WHEELCHAIR BY NURSE AND ASSISTED INTO PRIVATE VEHICLE DRIVEN BY BROTHER
--- NOTE | 2024-11-24 15:45 | NUR ---
DRESSING TO RIGHT UPPER QUADRANT IN PLACE S/P LIVER BX. NO BLEEDING OR DRAINAGE NOTED.
== END 2024-11-24 15:45 | disposition home or self-care (01) ==
LOC: DAH 08:14 → EDSTATUS 10:00 → DAH 15:45
PROVIDERS: ATTEND Internal Medicine Hematology & Oncology
DX: K76.9 Liver disease, unspecified (principal); I12.9 Hypertensive chronic kidney disease with stage 1 through stage 4 chronic kidney disease, or unspecified chronic kidney disease; N18.30 Chronic kidney disease, stage 3 unspecified; I25.10 Atherosclerotic heart disease of native coronary artery without angina pectoris; E78.00 Pure hypercholesterolemia, unspecified; N52.9 Male erectile dysfunction, unspecified; N39.0 Urinary tract infection, site not specified; I48.91 Unspecified atrial fibrillation; M79.10 Myalgia, unspecified site; Z85.46 Personal history of malignant neoplasm of prostate; Z87.891 Personal history of nicotine dependence; Z87.448 Personal history of other diseases of urinary system; Z98.890 Other specified postprocedural states; Z82.49 Family history of ischemic heart disease and other diseases of the circulatory system
CPT/HCPCS: 47000; 85027; 85610; 85730; 36415; 74176; 76942; J3010; J2250; C2615; A4215; A4222; A4221; A4663; A4216; A4606; A4223 ×3; 99152; 99153; G0500

== ENCOUNTER → 2024-12-28 | Outpatient (CLI) | payer MEDICARE ==
--- NOTE | 2024-12-29 07:28 | HMCSR ---
APPROVED REPORT EXAM: Two-dimensional and M-mode echocardiogram with Doppler and color Doppler. INDICATION ICD: I25.10 Atherosclerotic heart disease of [place] coronary artery without angina pectoris 2D Dimensions RVDd4.2 cmLVEF(%)48.4 (>50%)LVED Vol(simp.)144.0 mL IVSd1.2 (0.7-1.1cm)FS(%)25 %LVES Vol(simp.)68.0 mL LVDd5.5 (3.8-5.6cm)Ao Root(2D)4.3 (2.0-3.7cm)LVEF(%, simp.)47 % PWd1.1 (0.7-1.1cm)LVOT diam2.5 (1.8-2.4cm)LA ESV INDEX (BP)29.19 mL/m2 LVDs4.1 (2.5-4.0cm)IVC diam1.5 cm Aortic Valve AoV Vmax2.7 m/[place] GR29.2 mmHgLVOT Vmax0.9 m/s AoV VTI0.6 mAo Mean GR17.4 mmHgLVOT VTI0.17 m LAUREN (VMAX)1.5 cm2Al P1/2T609 msAVA (VTI) 1.5 cm2 Mitral Valve MV E Vmax46.5 cm/sDECEL Iptx675 ms MV A Vmax96.1 cm/sP 1/2 T52 ms E/A ratio0.5MVA (PHT)4.2 cm2 MR Max PG162 mmHg TDI E/E' Opztpn01.8E/E' Lateral8.3 Pulmonary Valve PV Vmax1.0 m/sPV VTI0.18 mPV Mean GR2 mmHg PV Peak GR4.1 mmHgPI End Allison. Luis 1.3 cm/s Tricuspid Valve TR Vmax2.7 m/sRAP (EST) 3 ovKhBCIM24.7 mmHg TR Peak GR28.7 mmHg Left Ventricle The left ventricle is borderline dilated. There is mild concentric left ventricular hypertrophy. LVEF is 45-50%. No left ventricle thrombus noted on this study. Grade 1 diastolic dysfunction Right Ventricle The right ventricle is mildly dilated. The right ventricular systolic function is normal. Atria The left atrium size is normal. The right atrium is moderately dilated. Aortic Valve Aortic valve is trileaflet. Mild to moderate aortic regurgitation. AV Dimensionless Index is 0.30 [place] culated aortic valve area is 1.5 cm2 with maximum pressure gradient of 29.2 mmHg and mean pressure gr adient of 17.4 mmHg. Mitral Valve Mitral valve leaflets are mildly sclerotic but open well. Mitral regurgitation is mild to moderate. T here is no mitral valve stenosis. Tricuspid Valve The tricuspid valve leaflets appear normal. There is trace to mild tricuspid regurgitation. Right addie tricular systolic pressure is estimated at 30-40 mmHg. Pulmonic Valve Pulmonic valve is not well visualized. There is trace to mild valvular regurgitation. Great Vessels Aortic root is moderately dilated. Ascending aorta is dilated. The IVC is normal in size and collapse s >50% with inspiration. Pericardium No pericardial effusion. Conclusion The left ventricle is borderline dilated. There is mild concentric left ventricular hypertrophy. LVEF is 45-50%. Grade 1 diastolic dysfunction The right ventricle is mildly dilated. The left atrium size is normal. The right atrium is moderately dilated. Aortic valve is trileaflet. Mild to moderate aortic regurgitation. Calculated aortic valve area is 1.5 cm2 with maximum pressure gradient of 29.2 mmHg and mean pressure gradient of 17.4 mmHg. Mitral valve leaflets are mildly sclerotic but open well. Mitral regurgitation is mild to moderate. There is trace to mild tricuspid regurgitation. Right ventricular systolic pressure is estimated at 30-40 mmHg. There is trace to mild valvular regurgitation. Aortic root is moderately dilated. The IVC is normal in size and collapses >50% with inspiration. No pericardial effusion.
== END | disposition home or self-care (01) ==
LOC: SHCH 10:49
PROVIDERS: ATTEND Internal Medicine Cardiovascular Disease
DX: I08.8 Other rheumatic multiple valve diseases (principal); I25.10 Atherosclerotic heart disease of native coronary artery without angina pectoris
CPT/HCPCS: 93306

== ENCOUNTER 2025-05-02 11:21 | Inpatient (IN) | payer MEDICARE ==
[~2025-05-02] VITALS: Ht 185.4 cm; Wt 90.4 kg
[~2025-05-02 11:21] MED LIST changes: +AMIO200T73 PO; -APIX5TAB PO; -ATOR20TA65 PO; -CEPH500B PO; -DOCU-116 PO; -DRON400T7 PO; -FAMO20TA8 PO; -FERR324T PO; -FERR324T23 PO; +FURO20TA4 PO; -GABA-534 PO; -LEVO750T68 PO; -LUTE6CAP2 PO; -MAGN100C5 PO; -MAGN100T6 PO; -NYSTPW TP; -[UNRECOGNIZED DRUG - OTHER] PO
[2025-05-02 11:52] LABS: IMMATURE GRANULOCYTE ABSOLUTE 0.04 K/uL (0-1); NUCLEATED RED BLOOD CELLS 0.0 % (0.0-0.19); PLATELET COUNT (AUTO) 42 K/uL (130-400); RED BLOOD CELL COUNT(AUTO) 3.13 MIL/uL (4.50-6.20); RED CELL DISTRIBUTION WIDTH 18.9 % (11.0-15.5); WHITE BLOOD COUNT (AUTO) 4.3 K/uL (4.8-10.8)
[2025-05-02 11:59] LABS: CREATININE 1.4 mg/dL (0.5-1.3); GLOMERULAR FILTR. RATE CALC 49.0 mL/min (>90); GLUCOSE,RANDOM 95.0 mg/dL (70-105); SODIUM SERUM 146.0 mmol/L (136-145); UREA NITROGEN, BLOOD 30.0 mg/dL (7-18)
[2025-05-02 12:04] LABS: CREATINE KINASE, TOTAL 39.0 U/L (21-232)
[2025-05-02 12:29] LABS: PLATELET MORPHOLOGY COMMENT MARKED DECREASE
[2025-05-02 12:50] LABS: INR 1.12 (0.85-1.15)
[2025-05-02 13:02] LABS: ADD UA MICROSCOPIC YES; APPEARANCE,URINE CLEAR (CLEAR); GLUCOSE, URINE (UA) NEGATIVE (NEGATIVE); LEUKOCYTE ESTERASE ,URINE NEGATIVE Leu/uL (NEGATIVE); NITRATE,URINE 2+ (NEGATIVE); OCCULT BLOOD,URINE NEGATIVE (NEGATIVE)
--- NOTE | 2025-05-02 13:04 | EKG ---
[facility] Test Date: 2025-05-02 Test Time: 12:13:17 Pat Name: CATY MANJARREZ Department: ED Room: 310 Gender: M Housekeeping Room Attendant: [id number] : 1940 Requested By: NISHA AGUILAR Order Number: [id number] Reading MD: Arsenio Vazquez Measurements Intervals [place] Rate: 70 P: 70 MA: 219 QRS: -58 QRSD: 116 T: 10 QT: 496 QTc: 537 Interpretive Statements Sinus rhythm Borderline prolonged MA interval Left anterior fascicular block Low voltage, precordial leads Probable anteroseptal infarct, old Prolonged QT interval Compared to ECG 10/20/2024 19:01:30 Prolonged QT interval now present Atrial fibrillation no longer present Myocardial infarct finding still present Electronically Signed On 05-02-2025 17:19:59 CDT by Arsenio Vazquez Please click the below link to view image of tracing.
--- NOTE | 2025-05-02 13:14 | ERN ---
General Chief Complaint: Weakness Stated Complaint: OTHER Time Seen by MD: 11:28 Source: patient History of Present Illness Initial Comments PATIENT IS A 84-YEAR-OLD MALE COMING IN TO BE EVALUATED FOR GENERALIZED BODY WEAKNESS. PATIENT STATES THAT HE HAS BEEN FEELING VERY WEAK. HE STATES THAT HE HAS BEEN GETTING CHEMOTHERAPY FOR MALIGNANCY. Allergies: Coded Allergies: No Known Drug Allergies (Unverified Allergy, Unknown, 07/14/23) Home Meds Reported Medications Furosemide (Furosemide) 20 Mg Tablet, 20 MG PO AM, TAB 01/23/25 Amiodarone HCl (Amiodarone HCl) 200 Mg Tablet, 200 MG PO BID, TAB 01/23/25 Cyanocobalamin (Vitamin B-12) (Vitamin B-12) 1,000 Mcg Capsule, 1000 CAP PO DAILY for 30 Days, #30 CAP 0 Refills 10/20/24 Atorvastatin Calcium (LIPITOR) 20 Mg Tab, 1 TAB PO DAILY for 30 Days, #30 TAB 0 Refills 10/20/24 Methimazole (Methimazole) 5 Mg Tablet, 1 TAB PO DAILY for 30 Days, #30 TAB 0 Refills 10/20/24 Gabapentin (Gabapentin) 600 Mg Tablet, 600 MG PO BEDTIME, TAB 02/16/24 Metoprolol Tartrate (Metoprolol Tartrate) 25 Mg Tablet, 25 MG PO BID, TAB 07/14/23 Past Medical History Past Medical History: CAD, Cancer, Hypertension Medical History Other: BLADDER AND PROSTATE CA / LYMPHOMA Past Surgical History: Appendectomy, Other Surgical History Other: HERNIA REPAIR Social History Social History: Negative, Other ROS Dictation CONSTITUTIONAL: NO CHILLS, NO FEVER, WEAKNESS, NO DIAPHORESIS, MALAISE. HEAD/FACE: NO SIGNS OF TRAUMA. EENT: NO EYE PAIN, NO BLURRED VISION, NO TEARING, NO DOUBLE VISION, NO EAR PAIN, NO EAR DISCHARGE, NO NOSE PAIN, NO NASAL CONGESTION, NO THROAT PAIN, NO THROAT SWELLING, NO MOUTH PAIN. RESPIRATORY: NO COUGH, NO ORTHOPNEA, NO SOB, NO STRIDOR, NO WHEEZING. CARDIOVASCULAR: NO CHEST PAIN, NO EDEMA, NO PALPITATIONS, NO SYNCOPE. GASTROINTESTINAL/ABDOMINAL: NO ABDOMINAL PAIN, NO CONSTIPATION, NO DIARRHEA, NO NAUSEA, NO VOMITING. GENITOURINARY: NO ABNORMAL DISCHARGE, NO DYSURIA, NO FREQUENT URINATION, NO HEMATURIA. NO COMPLAINTS OF PAIN IN THE GENITALS. MUSCULOSKELETAL: NO BACK PAIN, NO GOUT, NO JOINT PAIN, NO JOINT SWELLING, NO MUSCLE PAIN, NO MUSCLE STIFFNESS, NO NECK PAIN. INTEGUMENTARY: NO CHANGE IN COLOR, NO CHANGE IN HAIR/NAILS, NO DRYNESS, NO LESION, NO LUMPS, NO RASH. NEUROLOGICAL/PSYCH: NO ANXIETY, NOT DEPRESSED, NO EMOTIONAL PROBLEM, NO HEADACHE, NO NUMBNESS, NO PRE-EXISTING DEFICIT, NO HISTORY OF SEIZURES, NO TREMORS, NO WEAKNESS. HEMATOLOGIC/LYMPHATIC: NOT ANEMIC, NO HISTORY OF BLOOD CLOTS, NO APPARENT BLEEDING, NO BRUISING, GLANDS NOT SWOLLEN. ALL SYSTEMS NEGATIVE, EXCEPT NOTED. Physical Exam Physical Exam Dictation VITAL SIGNS: REVIEWED. GENERAL APPEARANCE: ALERT, ORIENTED X3, NO ACUTE DISTRESS, OBESE. HEAD AND FACE: NON-TRAUMATIC. EYES: PERRL, PINK CONJUNCTIVAS, EYELID NO TRAUMA, ANTERIOR CHAMBER CLEAR. EARS: PINNAS INTACT AND NO SIGNS OF TRAUMA OR ERYTHEMA. EAR CANALS CLEAR AND NO DISCHARGE. TMS NO ERYTHEMA. NOSE: NO DISCHARGE, NO BLEEDING. OROPHARYNX: MOUTH NORMAL, TEETH NO CARIES, TONGUE PINK. PHARYNX CLEAR, NO ERYTHEMA. TONSILS NO EXUDATES, NO ABSCESSES NOTED. MUCOUS MEMBRANE MOIST. NECK: SUPPLE, NON-TENDER, NO THYROMEGALY, NO MASSES, NO JVD, NO BRUITS. BREAST: DEFERRED. CHEST: NO TENDERNESS, NO CREPITUS, NO PARADOXICAL MOVEMENT, NO RETRACTIONS. LUNGS: CLEAR, WELL-VENTILATED, SYMMETRIC, NO RALES, NO WHEEZING, NO RHONCHI, NO STRIDOR, GOOD BREATH SOUNDS BILATERALLY. HEART: REGULAR RATE, REGULAR RHYTHM, NO MURMUR, NO GALLOPS. VASCULAR: NO PERIPHERAL EDEMA. ABDOMEN: SOFT, POSITIVE BOWEL SOUNDS, NONDISTENDED, NO GUARDING, NONTENDER, NO REBOUND, NO MASSES NO HEPATOMEGALY, NO SPLENOMEGALY, NO HARVEY'S SIGN, NO HERNIAS. RECTAL: DEFERRED. GENITAL: DEFERRED. NEUROLOGICAL: NORMAL SPEECH, GROSS MOTOR FUNCTION INTACT, GROSS SENSORY FUNCTION INTACT. MUSCULOSKELETAL: NECK NONTENDER, FULL RANGE OF MOTION, BACK NONTENDER, FULL RANGE OF MOTION. EXTREMITIES: NONTENDER, FULL RANGE OF MOTION. SKIN: COLOR PINK, DRY, NO TURGOR, NO RASH, NO LACERATIONS, NO ABRASIONS, NO CONTUSIONS. LYMPHATICS: DEFERRED. Results Laboratory and Microbiology Lab and Micro Result Laboratory Tests Test 05/02/25 11:28 05/02/25 12:46 White Blood Count 4.3 K/uL (4.8-10.8) L Red Blood Count 3.13 MIL/uL (4.50-6.20) L Hemoglobin 10.3 g/dL (14.0-18.0) L Hematocrit 32.6 % (42-54) L Mean Corpuscular Volume 104.2 fL (79-99) H Mean Corpuscular Hemoglobin 32.9 pg (27.0-33.0) Mean Corpuscular Hemoglobin Concent 31.6 g/dL (32.0-36.0) L Red Cell Distribution Width 18.9 % (11.0-15.5) H Platelet Count 42 K/uL (130-400) L Mean Platelet Volume 10.2 fL (7.5-10.5) Immature Granulocyte % (Auto) 0.9 % (0-1) Neutrophils (%) (Auto) 87.7 % (40.0-77.0) H Lymphocytes (%) (Auto) 5.6 % (21.0-51.0) L Monocytes (%) (Auto) 2.6 % (3.0-13.0) L Eosinophils (%) (Auto) 3.0 % (0.0-8.0) Basophils (%) (Auto) 0.2 % (0.0-5.0) Neutrophils # (Auto) 3.8 K/uL (1.8-7.7) Lymphocytes # (Auto) 0.2 K/uL (1.0-4.8) L Monocytes # (Auto) 0.1 K/uL (0.1-1.0) Eosinophils # (Auto) 0.13 K/uL (0.00-0.70) Basophils # (Auto) 0.01 K/uL (0.00-0.20) Absolute Immature Granulocyte (auto 0.04 K/uL (0-1) Nucleated Red Blood Cells 0.0 % (0.0-0.19) White Cell Morphology Comment See comments Platelet Morphology Comment MARKED DECREASE Red Blood Cell Morphology See comments Prothrombin Time 11.7 SEC (9.6-11.6) H Prothromb Time International Ratio 1.12 (0.85-1.15) Activated Partial Thromboplast Time 25.6 SEC (26.3-35.5) L Sodium Level 146 mmol/L (136-145) H Potassium Level 3.1 mmol/L (3.5-5.1) L Chloride Level 105 mmol/L (101-111) Carbon Dioxide Level 36 mmol/L (21-32) H Blood Urea Nitrogen 30 mg/dL (7-18) H Creatinine 1.4 mg/dL (0.5-1.3) H Glomerular Filtration Rate Calc 49 mL/min (>90) Random Glucose 95 mg/dL (70-105) Total Calcium 7.6 mg/dL (8.5-10.1) L Magnesium Level 1.90 mg/dL (1.80-2.40) Total Creatine Kinase 39 U/L (21-232) # Lipase 14 U/L (16-77) L Urine Color LIGHT-YELLOW (YELLOW) Urine Appearance CLEAR (CLEAR) Urine pH 6.5 (5.0-8.0) Urine Specific [place] 1.008 (1.001-1.031) Urine Protein NEGATIVE mg/dL (NEGATIVE) Urine Glucose (UA) NEGATIVE mg/dL (NEGATIVE) Urine Ketones NEGATIVE mg/dL (NEGATIVE) Urine Occult Blood NEGATIVE (NEGATIVE) Urine Nitrate 2+ (NEGATIVE) H Urine Bilirubin NEGATIVE mg/dL (NEGATIVE) Urine Urobilinogen 0.2 mg/dL (0.2-1.0) Urine Leukocyte Esterase NEGATIVE Bi/uL Urine RBC 0-1 /HPF (0-1) Urine WBC 2-5 /HPF (0-1) H Urine Squamous Epithelial Cells RARE /HPF (0-2) Urine Bacteria RARE /HPF (None Seen) Labs Reviewed?: Yes MDM MDM: DIFFERENTIAL DIAGNOSIS:WEAKNESS, ON CHEMOTHERAPY, LIVER CA RATIONALE: TESTS CONSIDERED AND ORDERED SECONDARY TO SHARED DECISION MAKING INCLUDE: LABS, ECG AND RADIOLOGY PREVIOUS OUTSIDE RECORDS REVIEWED: OLD ER VISITS. RISK OF COMPLICATION AND/OR MORBIDITY OR MORTALITY OF PATIENT MANAGEMENT: NONE MEDICATIONS-PER MEDICATION RECONCILIATION NEED FOR HOSPITALIZATION: PATIENT DOES MEET CRITERIA FOR HOSPITALIZATION. NEED FOR EMERGENCY MAJOR/MINOR SURGERY: NO THERE ARE NO SOCIAL CONCERNS WITH THIS PATIENT. PRESCRIPTION DRUG MANAGEMENT PRESCRIPTIONS WILL INCLUDE SYMPTOMATIC CARE PATIENT'S PRIOR EXTERNAL MEDICAL RECORDS FROM OTHER ER VISITS WERE REVIEWED BY ME INDICATED. PRIOR TESTING AND RESULTS FROM PREVIOUS VISITS WERE REVIEWED. PRIOR TESTS WERE TAKEN INTO ACCOUNT WITH MEDICAL DECISION MAKING AND RESOURCE UTILIZATION, INDEPENDENT HISTORIAN/HISTORIANS WERE USED TO OBTAIN COMPLETE MEDICAL HISTORY. I INDEPENDENTLY INTERPRETED THE TEST THAT WERE PERFORMED, RESULTS WERE REVIEWED BY ME AND CONSIDERED FINDINGS ON RADIOLOGY IF ORDERED. MEDICAL MANAGEMENT AND EXAMINATION INTERPRETATION DISCUSSIONS WERE HAD BY ME WITH OTHER QUALIFIED HEALTHCARE PROFESSIONALS INDICATED FOR THE PATIENT'S CARE. PATIENT WILL BE ADMITTED UNDER THE CARE OF DR. PALACIOS. ED Course Orders Procedure Category Date Status Time Cbc With Differential LAB 05/02/25 Complete 11:36 Urinalysis Profile LAB 05/02/25 Complete 11:36 12 Lead Ekg Tracing- EKG 05/02/25 Complete Technical 11:36 Lactated Ringers PHA 05/02/25 Complete 1000ml (Lactated 12:00 Creatine Kinase, Total LAB 05/02/25 Complete 11:36 Lipase LAB 05/02/25 Complete 11:36 Basic Metabolic Panel LAB 05/02/25 Complete 11:36 Place Midline Access CPOE 05/02/25 Transmitted 12:38 Pt And Ptt LAB 05/02/25 Complete 12:38 Culture Urine TIMOTHY 05/02/25 In Process 13:02 Potassium Bicarb/Cit PHA 05/02/25 Complete Ac 25meq (K-Lyte Ta 13:30 Magnesium LAB 05/02/25 Complete 13:10 Current Medications Medications (Trade) Dose Ordered Sig/Stalin Route PRN Reason Start Time Stop Time Status Last Admin Dose Admin Lactated Ringer's 1,000 ml @ 0 mls/hr ONCE ONCE IV 05/02/25 12:00 05/02/25 12:01 DC Potassium Bicarbonate (K-Lyte Tablet Eff 25 Meq Tablet.eff) 50 meq ONCE ONCE PO 05/02/25 13:30 05/02/25 13:31 DC Vital Signs Date Time Temp Pulse Resp B/P (MAP) Pulse Ox O2 Delivery O2 Flow Rate FiO2 05/02/25 11:43 98.4 85 12 103/56 93 Room Air* 0 21 05/02/25 11:29 78 16 115/71 96 Nasal Cannula 2.0 DX & DISP Disposition: Inpatient Decision to Admit Time: 13:39 Departure Impression: Primary Impression: Dehydration Additional Impressions: Chemotherapy adverse reaction, Hypokalemia Condition: Stable Referrals: MADELYN GRADY MD (PCP) NISHA AGUILAR MD May 02, 2025 13:14
[2025-05-02 13:20] LABS: SQUAMOUS EPITHELIAL CELL,UR RARE /HPF (0-2)
[2025-05-02] MEDS: LACTATED RINGERS 1000ML 1,000 ML IV ONE (13:55)
[2025-05-02] MEDS: DIPHENOXYLATE HCL/ATROPINE 2.5/0.025 MG TAB PO ONE (14:00)
--- NOTE | 2025-05-02 15:36 | NUR ---
DCP: HOME Pt currently lives alone however dgt Jenny (at bedside) came in from [place] and will be staying with him until June 21 (when FMLA ends at her job). Pt uses a 4 wheelwalker at home to ambulate. Pt has had 8 chemo treatments. Pt has a home health agency that goes to his home 2-3x a week for edema management. Pt also has an ilostmy bag. PCP is Dr. Luis Heaton and uses [facility] for any RX needs. At DC pt will go home and dgt can assist with transportation. Addendum: 05/02/25 at 1539 by TI GOMEZ SS Amended: Links added.
[2025-05-02] MEDS: 0.9%NACL 1000ML 1,000 ML IV SCH (15:43)
[2025-05-02 20:50] VITALS: BP 113/64; PULSE 74; RESP 18; TEMP 97.6
[2025-05-02] MEDS: GABAPENTIN 300 MG CAPSULE PO SCH (21:30)
[2025-05-03 00:37] VITALS: BP 135/72; PULSE 75; RESP 18; TEMP 97.8
[2025-05-03 05:08] VITALS: BP 126/64; PULSE 75; RESP 18; TEMP 98
[2025-05-03 08:00] VITALS: BP 109/60; PULSE 82; RESP 17; TEMP 97.7; O2SAT 92
[2025-05-03] MEDS: CYANOCOBALAMIN (VITAMIN B-12) 1,000 MCG TABLET PO SCH (08:38)
[2025-05-03 08:43] LABS: NUCLEATED RED BLOOD CELLS 0.0 % (0.0-0.19); PLATELET COUNT (AUTO) 30 K/uL (130-400); RED BLOOD CELL COUNT(AUTO) 2.68 MIL/uL (4.50-6.20); RED CELL DISTRIBUTION WIDTH 18.8 % (11.0-15.5); WHITE BLOOD COUNT (AUTO) 3.0 K/uL (4.8-10.8)
[2025-05-03 09:03] LABS: ASPARTATE AMINOTRANSFERASE 24.0 U/L (10-37); CREATININE 1.2 mg/dL (0.5-1.3); GLOMERULAR FILTR. RATE CALC 59.0 mL/min (>90); GLUCOSE,RANDOM 111.0 mg/dL (70-105); SODIUM SERUM 147.0 mmol/L (136-145); TOTAL PROTEIN, SERUM 4.5 g/dL (6.0-8.3); UREA NITROGEN, BLOOD 29.0 mg/dL (7-18)
[2025-05-03 10:24] LABS: BAND NEUTROPHILS % (MANUAL) 5 % (0-2); EOSINOPHILS % (MANUAL) 1 % (1-6); LYMPHOCYTES % (MANUAL) 4 % (22-44); MAN.DIFF COMMENT-IMPRESSION MANUAL DIFFERENTIAL; MONOCYTES % (MANUAL) 1 % (2-9); PLATELET MORPHOLOGY COMMENT MARKED DECREASE; SEGMENTED NEUTROPHILS % 89 % (40-70); WBC MORPHOLOGY CONSISTENT W/DIFF
--- NOTE | 2025-05-03 11:23 | NUR ---
HOME MED REGARDING HOME MED. PATIENT WAS CONCERNED THAT AMIODARONE WAS BEING HELD. REACHED OUT TO DR HERNANDEZ REGARDING MED AND HAVE NOT RECEIVED NAY ANSWER.
[2025-05-03 12:00] VITALS: BP 119/64; PULSE 72; RESP 17; TEMP 98.2
--- NOTE | 2025-05-03 12:25 | NUR ---
[facility] Consult: Patient assessed by wound healing team. See wound assessment. Assessment and recommendations provided to primary nurse. Education provided. Wound care done. Addendum: 05/03/25 at 1505 by ANNE-MARIE JANSEN RN RN/ Amended: Links added.
--- NOTE | 2025-05-03 15:33 | CONS ---
[facility] CONSULTATION NOTE Date Patient Seen: May 03, 2025 Time of Visit: 15:33 Supervising Physician: Dr. Lionel Marshall Reason for Consultation: Medical management PROBLEM LIST: General body weakness Acute cystitis, CAUTI from urostomy Electrolyte derangements Thrombocytopenia Dehydration LLE swelling with wound Elevated liver enzymes Chronic atrial fibrillation, no AC Stage IV colon cancer with metastases with recent chemotherapy on 04/26/2025 Failure to thrive HPI: 84-year old male with past medical history of stage IV colon cancer on chemotherapy with last dose on 04/26/2025, atrial fibrillation with no AC that presented to the ER with complaints of generalized body weakness. He was admitted by Dr. Bunrett. [facility]IS was consulted for medical management. Upon assessment, patient is AAOX3. Currently on room air. Complains of BLE swel ling with "popped blister" to left lower extremity. States he hasn't been able to walk in the last three days due to weakness to BLE. Potassium 3.1, platelets 30. Denies ay SOB, chest pain, abdominal pain, nausea or vomiting. No family at bedside. Goals of care explained, verbalized understanding. Thank you for the consult, we will continue to follow. Plan: BLE venous doppler Follow urine culture results, continue on IV Rocephin COVID, influenza and strep ordered Cover electrolytes per protocol Continue on IV fluids AM labs Follow primary team recommendations PAST MEDICAL HX: see above PAST SURGICAL HX: noncontributory SOCIAL HISTORY: No tobacco, ETOH, or illicit drug use Coded Allergies: No Known Drug Allergies (Unverified Allergy, Unknown, 07/14/23) REVIEW OF SYSTEMS: 12 point ROS reviewed with patient. Pertinent positives mentioned above. Otherwise negative. PHYSICAL EXAM: GENERAL: alert, weak, awake oriented x 3 on RA HEENT: EOMI, Sclera non icteric, moist mucosa NECK: Supple, no JVD, trachea midline LUNGS: Clear breath sounds bilaterally. No wheezes HEART: Regular rate and rhythm. Normal S1 and S2, without murmurs ABD: Abdomen soft, nontender. Bowel sounds present EXT: No clubbing cyanosis (+) BLE +2 swelling, open wound to LLE NEURO: AAOX3, follows commands Vital Signs (last 8hr) Date Time Temp Pulse Resp B/P (MAP) Pulse Ox O2 Delivery O2 Flow Rate FiO2 05/03/25 08:00 92 Nasal Cannula* 2 28 05/03/25 08:00 97.7 82 17 109/60 92 Room Air LABS: Hematology Labs: Test 05/03/25 08:25 05/02/25 11:28 Range/Units White Blood Count 3.0 #L 4.8-10.8 K/uL Red Blood Count 2.68 L 4.50-6.20 MIL/uL Hemoglobin 8.8 L 14.0-18.0 g/dL Hematocrit 27.6 L 42-54 % Mean Corpuscular Volume 103.0 H 79-99 fL Mean Corpuscular Hemoglobin 32.8 27.0-33.0 pg Mean Corpuscular Hemoglobin Concent 31.9 L 32.0-36.0 g/dL Red Cell Distribution Width 18.8 H 11.0-15.5 % Platelet Count 30 #L 130-400 K/uL Mean Platelet Volume 12.4 H 7.5-10.5 fL Segmented Neutrophils % 89 H 40-70 % Band Neutrophils % 5 H 0-2 % Lymphocytes % (Manual) 4 L 22-44 % Monocytes % (Manual) 1 L 2-9 % Eosinophils % (Manual) 1 1-6 % Nucleated Red Blood Cells 0.0 0.0-0.19 % Differential Comment MANUAL DIFFERENTIAL White Cell Morphology Comment CONSISTENT W/DIFF Platelet Morphology Comment MARKED DECREASE Red Blood Cell Morphology See comments Immature Granulocyte % (Auto) 0.9 0-1 % Neutrophils (%) (Auto) 87.7 H 40.0-77.0 % Lymphocytes (%) (Auto) 5.6 L 21.0-51.0 % Monocytes (%) (Auto) 2.6 L 3.0-13.0 % Eosinophils (%) (Auto) 3.0 0.0-8.0 % Basophils (%) (Auto) 0.2 0.0-5.0 % Neutrophils # (Auto) 3.8 1.8-7.7 K/uL Lymphocytes # (Auto) 0.2 L 1.0-4.8 K/uL Monocytes # (Auto) 0.1 0.1-1.0 K/uL Eosinophils # (Auto) 0.13 0.00-0.70 K/uL Basophils # (Auto) 0.01 0.00-0.20 K/uL Absolute Immature Granulocyte (auto 0.04 0-1 K/uL Chemistry Labs: Test 05/03/25 08:25 05/02/25 11:28 Range/Units Sodium Level 147 H 136-145 mmol/L Potassium Level 3.1 L 3.5-5.1 mmol/L Chloride Level 110 101-111 mmol/L Carbon Dioxide Level 32 21-32 mmol/L Blood Urea Nitrogen 29 H 7-18 mg/dL Creatinine 1.2 0.5-1.3 mg/dL Glomerular Filtration Rate Calc 59 >90 mL/min Random Glucose 111 H 70-105 mg/dL Total Calcium 7.5 L 8.5-10.1 mg/dL Total Bilirubin 0.8 0.2-1.0 mg/dL Aspartate Amino Transf (AST/SGOT) 24 10-37 U/L Alanine Aminotransferase (ALT/SGPT) 17 12-78 U/L Alkaline Phosphatase 148 H 50-136 U/L Total Protein 4.5 L 6.0-8.3 g/dL Albumin 1.7 L 3.5-5.0 g/dL Procalcitonin 0.31 0.05-0.5 ng/mL Magnesium Level 1.90 1.80-2.40 mg/dL Total Creatine Kinase 39 # 21-232 U/L Lipase 14 L 16-77 U/L Coagulation Labs: Test 05/02/25 11:28 Range/Units Prothrombin Time 11.7 H 9.6-11.6 SEC Prothromb Time International Ratio 1.12 0.85-1.15 Activated Partial Thromboplast Time 25.6 L 26.3-35.5 SEC DIAGNOSTICS / RADIOLOGY RESULTS: SERVICE 1228 REASON: cough ORDERING PHYSICIAN: MIGUEL MARSHALL CIGAR INSPECTOR PROCEDURE: CXR1VW - CHEST 1VW CHEST 1VW HISTORY: Cough COMPARISON: None FINDINGS: A frontal projection of the chest was obtained. No acute pulmonary infiltrates is seen. The heart is borderline enlarged. Degenerative changes are seen. Aortic calcifications are seen. IMPRESSION: 1. No acute pulmonary infiltrate is seen. PLAN NEURO: Minimize central acting medications as possible. Maintain fall precautions, adequate lighting during the day PULMONARY: Supplemental 02 as needed. Maintain aspiration precautions at all times CARDIOVASCULAR: Follow hemodynamics. Vital signs per facility protocol GI & NUTRITION: Continue with nutritional support. Continue stool softeners and laxatives as needed. KIDNEYS & ELECTROLYTES: Strict monitoring of intake, output and overall fluid balance. Avoid nephrotoxic medications to the extent possible. Medications to be dosed according to renal function. Monitor electrolytes and replace as needed ENDOCRINE: Maintain blood glucose between 100-180 at all times. Hypoglycemia protocol in place INFECTIOUS DISEASE: Trend temperature, WBC and procalcitonin level Follow cultures, deescalate antibiotics as soon as possible. Panculture if new onset fever ONCOLOGY/HEMATOLOGY/COAGULATION: Monitor for s/s of bleeding Monitor hemoglobin, coagulation studies as needed SKIN: Pressure ulcer prevention per facility protocol Specialty mattress ORTHO/REHAB: Continue PT/OT Prophylaxis: Continue GI and DVT prophylaxis Code Status: Full Resuscitation Disposition: per primary team MIGUEL MARSHALL NP May 03, 2025 15:33
--- NOTE | 2025-05-03 15:34 | NUR ---
PAIN MED PATIENT WAS REQUESTING PAIN MED. STATING HIS PAIN IS LOCATED ON LEFT HEEL WITH A PAIN SCORE OF 9. REACHED OUT TO DR HERNANDEZ REGARDING PAIN MEDS. NO ANSWER RECEIVED.
[2025-05-03 16:00] VITALS: BP 119/64; PULSE 72; RESP 17; TEMP 98.2
--- NOTE | 2025-05-03 16:29 | HMCIMG ---
CHEST 1VW HISTORY: Cough COMPARISON: None FINDINGS: A frontal projection of the chest was obtained. No acute pulmonary infiltrates is seen. The heart is borderline enlarged. Degenerative changes are seen. Aortic calcifications are seen. IMPRESSION: 1. No acute pulmonary infiltrate is seen.
[2025-05-03] MEDS ORDERED: MAGNESIUM 2GM PREMIX 50ML 50 ML IV SCH (17:30)
[2025-05-03] MEDS ORDERED: MAGNESIUM 2GM PREMIX 50ML 50 ML IV PRN (17:30)
[2025-05-03 17:31] LABS: RAPID GROUP A STREP negative (NEGATIVE)
[2025-05-03 17:41] LABS: SARS-CoV-2, RNA, NAAT NEGATIVE SARS CoV-2 (NEGATIVE)
[2025-05-03 17:42] LABS: INFLUENZA TYPE A Negative For Type A (NEGATIVE); INFLUENZA TYPE B Negative For Type B (NEGATIVE)
[2025-05-03] MEDS ORDERED: PoTASSium chl 10% ELIXIR 20MEQ 20 MEQ/15 ML UDCUP PO PRN (18:00)
--- NOTE | 2025-05-03 18:01 | HMCIMG ---
ULTRASOUND VENOUS DOPPLER, BILATERAL LOWER EXTREMITIES INDICATION: Left lower extremity pain and swelling TECHNIQUE: Routine grayscale and color Doppler ultrasound of the bilateral lower extremity veins performed. COMPARISON: No priors. FINDINGS: The demonstrated veins of the right lower extremity including the common femoral vein, femoral vein, and popliteal vein are associated with normal compressibility, flow, and color. Abnormal occlusive echogenic intraluminal thrombus demonstrated from the left common femoral vein to the left posterior tibial vein, including involvement of the left common femoral vein bifurcation/proximal left deep femoral vein. IMPRESSION: Extensive occlusive left lower extremity DVT.
[2025-05-03] MEDS: PoTASSium chloRIDE 20MEQ ER 20 MEQ ERTAB PO PRN (18:06)
[2025-05-03] MEDS: BACITRACIN 28.4 GM OINT TP SCH (18:06)
--- NOTE | 2025-05-03 19:56 | HP ---
ADMITTING DIAGNOSES: Metastatic cancer and generalized weakness. SUBJECTIVE: This is an 84-year-old man well known to me with stage IV colon cancer, liver metastasis, on Avastin and FOLFOX chemotherapy. He gets fluid resuscitation ____ treatment. This time he came extremely weak. He was seen and examined, hypokalemic, admitted for electrolyte replacement. PAST MEDICAL HISTORY: Coronary artery disease, stage IV colon cancer, bladder cancer, hypertension, and thyroid disease. PAST SURGICAL HISTORY: Appendectomy, colonoscopy, chest port, hernia repair. MEDICATIONS: Include Lasix, Cordarone, vitamin B12, ____ Tapazole, gabapentin, metoprolol. ALLERGIES: None known. FAMILY HISTORY: Negative for colon cancer. SOCIAL HISTORY: Single, looked after by his daughter. Does not smoke or drink. REVIEW OF SYSTEMS: CONSTITUTIONAL: Just feels generally weak. HEENT: No blurred vision. CARDIOVASCULAR: No chest pain, palpitations, PND. PULMONARY: Negative for cough. GASTROINTESTINAL: No nausea, vomiting, or diarrhea. GENITOURINARY: Negative for hematuria or dysuria. EXTREMITIES: Positive for weakness. PHYSICAL EXAMINATION: GENERAL: Shows elderly man. VITAL SIGNS: Blood pressure 103/53, pulse 85, respirations 20. HEENT: Benign. NECK: Supple. CHEST: Show decreased breath sounds bilaterally. HEART: Regular rate and rhythm. ABDOMEN: Soft. EXTREMITIES: 2+ pitting edema. NEUROLOGIC: Alert and oriented. LABORATORY DATA: Reviewed. CBC 4.3, hemoglobin 10. Platelets: 42,000. Chemistries: Sodium 146, potassium 3.1. Chloride 105. Bicarbonate 36. Creatinine 1.4. We do not have an albumin, which I suspect is low. IMPRESSION: * Failure to thrive. * Anasarca edema from low albumin. * Metastatic colon cancer, stage IV. * Hypokalemia. * Three primary cancers. PLAN: Continue monitors, electrolytes, strict I and O. Wound care by Dr. Marshall's group. We will look at his albumin to see if he would benefit from albumin replacement. Further recommendations to follow up. TID: [id number] RECEIPT: [id number]
[2025-05-03 20:21] VITALS: BP 135/72; PULSE 77; RESP 18; TEMP 97.7
[2025-05-04] VITALS (7 sets, daily range): BP systolic 112–159; BP diastolic 58–78; PULSE 64–75; RESP 17–19; TEMP 97.9–98.5; O2SAT 94
[2025-05-04 06:06] LABS: NUCLEATED RED BLOOD CELLS 0.0 % (0.0-0.19); PLATELET COUNT (AUTO) 28.0 K/uL (130-400); RED BLOOD CELL COUNT(AUTO) 2.37 MIL/uL (4.50-6.20); RED CELL DISTRIBUTION WIDTH 18.6 % (11.0-15.5); WHITE BLOOD COUNT (AUTO) 3.3 K/uL (4.8-10.8)
[2025-05-04 06:26] LABS: ASPARTATE AMINOTRANSFERASE 21.0 U/L (10-37); CREATININE 1.2 mg/dL (0.5-1.3); GLOMERULAR FILTR. RATE CALC 59.0 mL/min (>90); GLUCOSE,RANDOM 100.0 mg/dL (70-105); SODIUM SERUM 147.0 mmol/L (136-145); TOTAL PROTEIN, SERUM 4.2 g/dL (6.0-8.3); UREA NITROGEN, BLOOD 25.0 mg/dL (7-18)
--- NOTE | 2025-05-04 07:40 | NUR ---
NURSING HANDOFF SBAR REPORT GIVEN TO HAMLET BLACKWOOD, ALL QUESTIONS ANSWERED.
--- NOTE | 2025-05-04 11:01 | PN ---
LOCATION: 310. SUBJECTIVE: The patient did better overnight. Apparently, he walked 100 feet with physical therapy. Awake and alert. His weakness is a little bit improved. He does have cystitis, numerous electrolyte abnormalities. He has stage 4 cancer. He was seen by Deepa, I appreciate their input. PHYSICAL EXAMINATION: GENERAL: Shows an elderly man. VITAL SIGNS: Blood pressure 130/70, pulse 71, respirations 20. CHEST: Clear. ABDOMEN: Soft. EXTREMITIES: Show bilateral leg edema, has wound to the left leg. NEUROLOGIC: . LABORATORY DATA: Reviewed. CBC 3.3, hemoglobin 7.8, platelets 28,000. IMPRESSION: * Pancytopenia from chemo. * He has intact colon cancer, which is bleeding. He is not a candidate for any kind of anticoagulation. * He has AFib, which is chronic. * Stage 4 colon cancer, multiple primary cancers. * Left leg DVT. * Failure to thrive. PLAN: I would recommend transfusing packed cells and platelets and then placing an IVC filter. He cannot be anticoagulated as he has bleeding. Without anticoagulation hemorrhage. His cancer is still there. He is markedly improved. We will continue what we are doing, correct his electrolytes, etc. Transfuse packed cells and platelets. If he agrees, we will place an IVC filter. TID: [id number] RECEIPT: [id number]
--- NOTE | 2025-05-04 14:00 | NUR ---
PATIENT RECEIVING BLOOD AND PENDING VQ SCAN AT TIME OF MY VISIT. PT TEAM TO FOLLOW. Addendum: 05/04/25 at 1545 by STEVE MODI PT Amended: Links added.
--- NOTE | 2025-05-04 15:42 | PN ---
[facility] PROGRESS NOTE Date Patient Seen: May 04, 2025 Time of Visit: 15:42 Supervising Physician: Dr. Lionel Marshall PROBLEM LIST: General body weakness Acute LLE DVT Acute cystitis, CAUTI from urostomy Electrolyte derangements Thrombocytopenia Dehydration LLE swelling with wound Elevated liver enzymes Chronic atrial fibrillation, no AC Stage IV colon cancer with metastases with recent chemotherapy on 04/26/2025 Failure to thrive INTERVAL HISTORY: Patient assessed at bedside. AAOX3. Currently on room air. US of LLE shows extensive occlusive left lower extremity DVT.Unfortunately, patient has th rombocytopenia and cannot have AC. Spoke to patient and daughter Jenny about IVC filter, explained risk and benefits, and both in agreement to proceed with IVC filter. Patient getting PRBC and unit of platelets today. V/Q scan pending to be done. LLE with +2 swelling, patient states he cannot move his leg too much. Denies any SOB, chest pain, abdominal pain, nausea or vomiting. Plan: NPO after midnight IR for IVC filter AM labs, PT/INR Consult cardiology on 05/05/2025 for possible thrombectomy of LLE clot Further recommendations to follow REVIEW OF SYSTEMS: 12 point ROS reviewed with patient. Pertinent positives mentioned above. Otherwise negative. PHYSICAL EXAM: GENERAL: alert, weak, awake oriented x 3 on RA HEENT: EOMI, Sclera non icteric, moist mucosa NECK: Supple, no JVD, trachea midline LUNGS: Clear breath sounds bilaterally. No wheezes HEART: Regular rate and rhythm. Normal S1 and S2, without murmurs ABD: Abdomen soft, nontender. Bowel sounds present EXT: No clubbing cyanosis (+) BLE +2 swelling, open wound to LLE NEURO: AAOX3, follows commands Vital Signs (last 8hr) Date Time Temp Pulse Resp B/P (MAP) Pulse Ox O2 Delivery O2 Flow Rate FiO2 05/04/25 11:20 97.9 64 18 115/65 93 Room Air 05/04/25 08:09 98.1 68 17 112/58 93 Room Air LABS: Hematology Labs: Test 05/04/25 05:22 05/03/25 08:25 Range/Units White Blood Count 3.3 L 4.8-10.8 K/uL Red Blood Count 2.37 L 4.50-6.20 MIL/uL Hemoglobin 7.8 L 14.0-18.0 g/dL Hematocrit 24.6 L 42-54 % Mean Corpuscular Volume 103.8 H 79-99 fL Mean Corpuscular Hemoglobin 32.9 27.0-33.0 pg Mean Corpuscular Hemoglobin Concent 31.7 L 32.0-36.0 g/dL Red Cell Distribution Width 18.6 H 11.0-15.5 % Platelet Count 28 L 130-400 K/uL Mean Platelet Volume 12.2 H 7.5-10.5 fL Nucleated Red Blood Cells 0.0 0.0-0.19 % Segmented Neutrophils % 89 H 40-70 % Band Neutrophils % 5 H 0-2 % Lymphocytes % (Manual) 4 L 22-44 % Monocytes % (Manual) 1 L 2-9 % Eosinophils % (Manual) 1 1-6 % Differential Comment MANUAL DIFFERENTIAL White Cell Morphology Comment CONSISTENT W/DIFF Platelet Morphology Comment MARKED DECREASE Red Blood Cell Morphology See comments Chemistry Labs: Test 05/04/25 05:22 05/03/25 08:25 Range/Units Sodium Level 147 H 136-145 mmol/L Potassium Level 2.9 *L 3.5-5.1 mmol/L Chloride Level 111 101-111 mmol/L Carbon Dioxide Level 28 21-32 mmol/L Blood Urea Nitrogen 25 H 7-18 mg/dL Creatinine 1.2 0.5-1.3 mg/dL Glomerular Filtration Rate Calc 59 >90 mL/min Random Glucose 100 70-105 mg/dL Total Calcium 7.3 L 8.5-10.1 mg/dL Magnesium Level 1.80 1.80-2.40 mg/dL Total Bilirubin 0.7 0.2-1.0 mg/dL Aspartate Amino Transf (AST/SGOT) 21 10-37 U/L Alanine Aminotransferase (ALT/SGPT) 16 12-78 U/L Alkaline Phosphatase 148 H 50-136 U/L Total Protein 4.2 L 6.0-8.3 g/dL Albumin 1.5 L 3.5-5.0 g/dL Procalcitonin 0.31 0.05-0.5 ng/mL DIAGNOSTICS / RADIOLOGY RESULTS: PROCEDURE: VENOUS MAXIME - US VENOUS DOPPLER BILATERAL ULTRASOUND VENOUS DOPPLER, BILATERAL LOWER EXTREMITIES INDICATION: Left lower extremity pain and swelling TECHNIQUE: Routine grayscale and color Doppler ultrasound of the bilateral lower extremity veins performed. COMPARISON: No priors. FINDINGS: The demonstrated veins of the right lower extremity including the common femoral vein, femoral vein, and popliteal vein are associated with normal compressibility, flow, and color. Abnormal occlusive echogenic intraluminal thrombus demonstrated from the left common femoral vein to the left posterior tibial vein, including involvement of the left common femoral vein bifurcation/proximal left deep femoral vein. IMPRESSION: Extensive occlusive left lower extremity DVT. PLAN NEURO: Minimize central acting medications as possible. Maintain fall precautions, adequate lighting during the day PULMONARY: Supplemental 02 as needed. Maintain aspiration precautions at all times CARDIOVASCULAR: Follow hemodynamics. Vital signs per facility protocol GI & NUTRITION: Continue with nutritional support. Continue stool softeners and laxatives as needed. KIDNEYS & ELECTROLYTES: Strict monitoring of intake, output and overall fluid balance. Avoid nephrotoxic medications to the extent possible. Medications to be dosed according to renal function. Monitor electrolytes and replace as needed ENDOCRINE: Maintain blood glucose between 100-180 at all times. Hypoglycemia protocol in place INFECTIOUS DISEASE: Trend temperature, WBC and procalcitonin level Follow cultures, deescalate antibiotics as soon as possible. Panculture if new onset fever ONCOLOGY/HEMATOLOGY/COAGULATION: Monitor for s/s of bleeding Monitor hemoglobin, coagulation studies as needed SKIN: Pressure ulcer prevention per facility protocol Specialty mattress ORTHO/REHAB: Continue PT/OT Prophylaxis: Continue GI and DVT prophylaxis Code Status: Full Resuscitation Disposition: per primary team MIGUEL MARSHALL NP May 04, 2025 15:42
[2025-05-04 20:19] LABS: NUCLEATED RED BLOOD CELLS 0.0 % (0.0-0.19); PLATELET COUNT (AUTO) 44.0 K/uL (130-400); RED BLOOD CELL COUNT(AUTO) 3.1 MIL/uL (4.50-6.20); RED CELL DISTRIBUTION WIDTH 19.3 % (11.0-15.5); WHITE BLOOD COUNT (AUTO) 3.6 K/uL (4.8-10.8)
[2025-05-05] VITALS (8 sets, daily range): BP systolic 134–155; BP diastolic 79–90; PULSE 68–73; RESP 18; TEMP 97.2–98; O2SAT 96–99
[2025-05-05 04:24] LABS: NUCLEATED RED BLOOD CELLS 0.0 % (0.0-0.19); PLATELET COUNT (AUTO) 37 K/uL (130-400); RED BLOOD CELL COUNT(AUTO) 3.30 MIL/uL (4.50-6.20); RED CELL DISTRIBUTION WIDTH 19.7 % (11.0-15.5); WHITE BLOOD COUNT (AUTO) 2.8 K/uL (4.8-10.8)
[2025-05-05 04:33] LABS: INR 1.21 (0.85-1.15)
[2025-05-05 04:39] LABS: ASPARTATE AMINOTRANSFERASE 20.0 U/L (10-37); CREATININE 1.2 mg/dL (0.5-1.3); GLOMERULAR FILTR. RATE CALC 59.0 mL/min (>90); GLUCOSE,RANDOM 167.0 mg/dL (70-105); SODIUM SERUM 146.0 mmol/L (136-145); TOTAL PROTEIN, SERUM 4.9 g/dL (6.0-8.3); UREA NITROGEN, BLOOD 29.0 mg/dL (7-18)
[2025-05-05 05:06] LABS: LYMPHOCYTES % (MANUAL) 8 % (22-44); MAN.DIFF COMMENT-IMPRESSION MANUAL DIFFERENTIAL; MONOCYTES % (MANUAL) 1 % (2-9); SEGMENTED NEUTROPHILS % 91 % (40-70)
--- NOTE | 2025-05-05 07:23 | NUR ---
PATIENT UPDATE PT KEPT NPO POST MN, SIGNED CONSENT FOR IVC FILTER PLACEMENT BY IR, PT TESTED POSITIVE FOR DVT TO THE LEFT LEG. PT ALSO SIGNED THE DNR PAPER, STATED THAT HE DOESN'T WANT COMPRESSION AND INTUBATION. TRANSFUSE THE 2ND UNIT OF PRBC, NO UNTOWARD TRANSFUSION REACTIONS NOTED. FULL BEDBATH GIVEN BY [place], NOTED THE LEFT HEEL VERY SWOLLEN AND RED, LEFT LOWER EXTREMITY ELEVATED. WILL BENEFIT USING A WAFFLE BOOT TO THE LEFT HEEL. SLEPT FAIRLY OVERNIGHT, VITAL SIGNS STABLE.
--- NOTE | 2025-05-05 07:45 | NUR ---
ROUNDS PLATELET THIS AM AT 37, DR. RUDDY ANN ROUNDS , MADE AWARE OF THE PLATELET OF 37 AND PT IS SCHEDULED FOR THE IVC FILTER, ORDERED ONE UNIT OF SDP TO BE GIVEN STAT. BLOOD BLANK CALLED AND ORDERED THE SDP STAT.
--- NOTE | 2025-05-05 08:51 | PN ---
LOCATION: 310. SUBJECTIVE: The patient remained stable overnight. I gave him platelets yesterday. Recommend IVC filter. He cannot be anticoagulated. He has bleeding from the colon cancer, which has ____ removed. REVIEW OF SYSTEMS: Negative this morning. His back pain is better. PHYSICAL EXAMINATION: GENERAL: Elderly man. CHEST: Clear. ABDOMEN: Soft. EXTREMITIES: Show no edema. The legs are well swollen. He has got a wound on the left leg. NEUROLOGIC: Alert and oriented. IMPRESSION: DVT of lower extremity, acute; cystitis; metastatic colon cancer, stage 4; chronic AFib; liver metastasis, three primary cancers. PLAN: The patient is doing well medically. He agrees with the IVC filter. We will have to transfuse more platelets because Interventional would not be able to do the procedure, otherwise. Platelets are 37,000. Hemoglobin is much better. TID: [id number] RECEIPT: [id number]
--- NOTE | 2025-05-05 13:03 | PN ---
[facility] PROGRESS NOTE Date Patient Seen: May 05, 2025 Time of Visit: 13:03 Supervising Physician: Dr. Lionel Marshall PROBLEM LIST: Acute LLE DVT Acute cystitis, CAUTI from urostomy, urine culture negative General body weakness Electrolyte derangements Thrombocytopenia Dehydration LLE swelling with wound Elevated liver enzymes Chronic atrial fibrillation, no AC Stage IV colon cancer with metastases with recent chemotherapy on 04/26/2025 History of bladder cancer Failure to thrive Octogenarian INTERVAL HISTORY: Patient assessed at bedside. AAOX3. Currently on room air. US of LLE shows extensive occlusive left lower extremity DVT.Unfortunately, patient has thrombocytopenia and cannot have AC. Per cardiology not a candidate for thrombectomy due to thrombocytopenia. Spoke to patient and daughter Jenny about IVC filter, explained risk and benefits, and both in agreement to proceed with IVC filter. Patient getting unit of platelets today. V/Q scan pending to be done. LLE with +2 swelling, patient states he cannot move his leg too much. Denies any SOB, chest pain, abdominal pain, nausea or vomiting. Daughter at bedside. Plan: IR for IVC filter once platelets improve AM labs, PT/INR Consulted cardiology on 05/05/2025 for possible thrombectomy of LLE clot, not a candidate for thrombectomy due to leukopenia Further recommendations to follow REVIEW OF SYSTEMS: 12 point ROS reviewed with patient. Pertinent positives mentioned above. Other keller negative. PHYSICAL EXAM: GENERAL: alert, weak, awake oriented x 3 on RA HEENT: EOMI, Sclera non icteric, moist mucosa NECK: Supple, no JVD, trachea midline LUNGS: Clear breath sounds bilaterally. No wheezes HEART: Regular rate and rhythm. Normal S1 and S2, without murmurs ABD: Abdomen soft, nontender. Bowel sounds present EXT: No clubbing cyanosis (+) BLE +2 swelling, open wound to LLE NEURO: AAOX3, follows commands Vital Signs (last 8hr) Date Time Temp Pulse Resp B/P (MAP) Pulse Ox O2 Delivery O2 Flow Rate FiO2 05/05/25 11:17 98.1 68 18 150/80 96 Room Air 05/05/25 07:37 97.5 73 18 152/86 96 Room Air LABS: Hematology Labs: Test 05/05/25 04:04 Range/Units White Blood Count 2.8 L 4.8-10.8 K/uL Red Blood Count 3.30 L 4.50-6.20 MIL/uL Hemoglobin 10.5 L 14.0-18.0 g/dL Hematocrit 32.0 L 42-54 % Mean Corpuscular Volume 97.0 79-99 fL Mean Corpuscular Hemoglobin 31.8 27.0-33.0 pg Mean Corpuscular Hemoglobin Concent 32.8 32.0-36.0 g/dL Red Cell Distribution Width 19.7 H 11.0-15.5 % Platelet Count 37 L 130-400 K/uL Mean Platelet Volume 10.7 H 7.5-10.5 fL Segmented Neutrophils % 91 H 40-70 % Lymphocytes % (Manual) 8 L 22-44 % Monocytes % (Manual) 1 L 2-9 % Nucleated Red Blood Cells 0.0 0.0-0.19 % Differential Comment MANUAL DIFFERENTIAL White Cell Morphology Comment Platelet Morphology Comment See comments Red Blood Cell Morphology See comments Chemistry Labs: Test 05/05/25 04:04 Range/Units Sodium Level 146 H 136-145 mmol/L Potassium Level 4.3 3.5-5.1 mmol/L Chloride Level 111 101-111 mmol/L Carbon Dioxide Level 27 21-32 mmol/L Blood Urea Nitrogen 29 H 7-18 mg/dL Creatinine 1.2 0.5-1.3 mg/dL Glomerular Filtration Rate Calc 59 >90 mL/min Random Glucose 167 #H 70-105 mg/dL Total Calcium 7.8 L 8.5-10.1 mg/dL Magnesium Level 1.90 1.80-2.40 mg/dL Total Bilirubin 0.9 # 0.2-1.0 mg/dL Aspartate Amino Transf (AST/SGOT) 20 10-37 U/L Alanine Aminotransferase (ALT/SGPT) 22 # 12-78 U/L Alkaline Phosphatase 170 H 50-136 U/L Total Protein 4.9 L 6.0-8.3 g/dL Albumin 1.8 L 3.5-5.0 g/dL Coagulation Labs: Test 05/05/25 04:04 Range/Units Prothrombin Time 12.6 H 9.6-11.6 SEC Prothromb Time International Ratio 1.21 H 0.85-1.15 Activated Partial Thromboplast Time 31.0 26.3-35.5 SEC DIAGNOSTICS / RADIOLOGY RESULTS: NA PLAN NEURO: Minimize central acting medications as possible. Maintain fall precautions, adequate lighting during the day PULMONARY: Supplemental 02 as needed. Maintain aspiration precautions at all times CARDIOVASCULAR: Follow hemodynamics. Vital signs per facility protocol GI & NUTRITION: Continue with nutritional support. Continue stool softeners and laxatives as needed. KIDNEYS & ELECTROLYTES: Strict monitoring of intake, output and overall fluid balance. Avoid nephrotoxic medications to the extent possible. Medications to be dosed according to renal function. Monitor electrolytes and replace as needed ENDOCRINE: Maintain blood glucose between 100-180 at all times. Hypoglycemia protocol in place INFECTIOUS DISEASE: Trend temperature, WBC and procalcitonin level Follow cultures, deescalate antibiotics as soon as possible. Panculture if new onset fever ONCOLOGY/HEMATOLOGY/COAGULATION: Monitor for s/s of bleeding Monitor hemoglobin, coagulation studies as needed SKIN: Pressure ulcer prevention per facility protocol Specialty mattress ORTHO/REHAB: Continue PT/OT Prophylaxis: Continue GI and DVT prophylaxis Code Status: Full Resuscitation Disposition: per primary team MIGUEL MARSHALL NP May 05, 2025 13:03
--- NOTE | 2025-05-05 13:35 | NUR ---
[facility] Follow-up: Patient re-assessed by wound healing team. See wound assessment. Assessment and recommendations provided to primary nurse. Education provided. Addendum: 05/05/25 at 1535 by ANNE-MARIE JANSEN RN RN/ Amended: Links added.
--- NOTE | 2025-05-05 13:57 | CONS ---
[facility] CARDIOLOGY CONSULTATION REPORT Cardiology consultation note dictated for Ramon wilson MD Primary rail car operator: Sheryl Shaffer MD Date Patient Seen: May 05, 2025 Requesting Physician: Nalini Marshall NP Reason for Consultation: LLE DVT possible thrombectomy History of Present Illness: This is an 84-year-old male with a long history of atrial fibrillation since young adulthood not on anticoagulation, history of DCCV on two separate occasions, hyperlipidemia, Lexiscan stress test on 12/26/2023 with infero-apical hypokinesis, fixed inferoseptal and apical defects, no reversible defects with LVEF of 45%, 2D echo on 12/28/2024 with an EF of 45-50%, grade 1 diastolic dysfunction, no LV thrombus noted, [id number] aortic stenosis, peak 29.2mmHg, mean 17.4mmHg, LAUREN 1.5 cm2, [id number] MR, mild TR, RVSP of 30- 40mmHg, lymphoma s/p excision, bladder and prostate cancer s/p remote resection of the bladder and prostatectomy with creation of an ileal conduit, stage IV colon cancer with liver metastasis and currently receiving chemotherapy with last treatment on 04/26/2025 who presented to the ED with complaints of general body weakness. Cardiology was consulted for possible thrombectomy for LLE DVT seen via Doppler on 05/03/2025. The patient endorsed being off of Eliquis for approximately two months. At this time, the patient is not a candidate for a thrombectomy due to pancytopenia requiring the need for a blood and platelet transfusions. We agree with plans for an IVC filter placement. The patient is pending a VQ scan. Will obtain a 2D Echocardiogram to assess for RV strain. Past Medical History: As per HPI and summarized below Past Surgical History: Refer to chart Family History: Noncontributory Social History: The patient lives with family. Habits: Refer to chart Home Meds: Amiodarone 200 mg b.i.d. Metoprolol tartrate 25 mg b.i.d. Lasix 20 mg daily Atorvastatin 20 mg daily Gabapentin 600 mg q.h.s. Vitamin B12 1000 mcg daily Current Meds: Medications Dose Ordered Sig/Stalin Start Time Stop Time Status Last Admin Sodium Chloride 1,000 ml @ 75 mls/hr [id number] 05/02/25 14:00 06/01/25 13:59 05/03/25 04:34 Ondansetron HCl 4 mg Q6H PRN 05/02/25 14:00 06/01/25 13:59 Furosemide 20 mg AM 05/03/25 09:00 06/02/25 08:59 05/04/25 08:27 Metoprolol Tartrate 25 mg BID 05/03/25 09:00 06/02/25 08:59 05/05/25 12:29 Vitamin B Complex 1,000 mcg DAILY 05/03/25 09:00 06/02/25 08:59 05/04/25 08:27 Gabapentin 600 mg HS 05/02/25 21:30 06/01/25 21:29 05/04/25 21:26 Ceftriaxone Sodium 2 gm Q24H 05/02/25 21:30 05/12/25 21:29 05/04/25 21:25 Bacitracin apply to left lower leg [id number] 05/03/25 17:00 06/02/25 16:59 05/04/25 17:15 Atorvastatin Calcium 20 mg HS 05/04/25 21:00 06/02/25 08:59 05/04/25 21:26 Ketorolac Tromethamine 30 mg Q6H PRN 05/03/25 17:30 05/05/25 17:29 05/04/25 04:14 Potassium Chloride 100 ml @ 100 mls/hr AD PRN 05/03/25 18:00 06/02/25 17:59 05/04/25 07:02 Potassium Chloride 20 meq AD PRN 05/03/25 18:00 06/02/25 17:59 Potassium Chloride 20 meq AD PRN 05/03/25 18:00 06/02/25 17:59 05/04/25 19:20 Morphine Sulfate 2 mg Q4H PRN 05/04/25 06:00 05/11/25 05:59 05/04/25 05:54 Review of Systems: CONST: No fever, fatigue, or weight changes. EYES: No recent vision problems. ENT: No congestion, ear pain, or sore throat. C/V: No chest pain, palpitations, or edema. RESP: No cough, congestion, wheezing or shortness of breath. GI: No abdominal pain, nausea, vomiting, constipation, or diarrhea. : No incontinence or dysuria. SKIN: Admits to left lower extremity skin tear on discomfort NEURO: No headache, focal numbness or weakness, dizziness, or seizures. PSYCH: No depression or anxiety. HEME: No abnormal bruising or bleeding. LYMPH: No swollen glands. Physical Examination: GENERAL: No acute distress. HEAD: Normal with no signs of head trauma. EYES: PERRLA, EOMI, conjunctiva and sclera normal. ENT: Hearing grossly intact, normal oropharynx. NECK: Supple without JVD. There is no tenderness, lymphadenopathy, or masses. No thyromegaly. Normal carotid upstrokes without bruits. LUNGS: Clear breath sounds bilaterally. No wheezes, or rhonchi. HEART: Normal rate and rhythm. Normal S1 and S2 without murmurs, gallop or rub. VASC: Unable to palpate bilateral DP pulses. ABD: Bowel sounds normal, soft, nontender, no masses, no organomegaly. No audible bruits. : Not examined LYMPH: No lymphadenopathy noted. EXT: No clubbing, cyanosis or edema. SKIN: LLE skin tear. Lt heel stage 1 ulcer. NEURO: Awake, alert, and oriented x3. No focal sensory or strength deficits noted. Vital Signs (last 8hr) Date Time Temp Pulse Resp B/P (MAP) Pulse Ox O2 Delivery O2 Flow Rate FiO2 05/05/25 11:17 98.1 68 18 150/80 96 Room Air 05/05/25 07:37 97.5 73 18 152/86 96 Room Air Laboratory: Hematology Labs: Test 05/05/25 04:04 Range/Units White Blood Count 2.8 L 4.8-10.8 K/uL Red Blood Count 3.30 L 4.50-6.20 MIL/uL Hemoglobin 10.5 L 14.0-18.0 g/dL Hematocrit 32.0 L 42-54 % Mean Corpuscular Volume 97.0 79-99 fL Mean Corpuscular Hemoglobin 31.8 27.0-33.0 pg Mean Corpuscular Hemoglobin Concent 32.8 32.0-36.0 g/dL Red Cell Distribution Width 19.7 H 11.0-15.5 % Platelet Count 37 L 130-400 K/uL Mean Platelet Volume 10.7 H 7.5-10.5 fL Segmented Neutrophils % 91 H 40-70 % Lymphocytes % (Manual) 8 L 22-44 % Monocytes % (Manual) 1 L 2-9 % Nucleated Red Blood Cells 0.0 0.0-0.19 % Differential Comment MANUAL DIFFERENTIAL White Cell Morphology Comment Platelet Morphology Comment See comments Red Blood Cell Morphology See comments Chemistry Labs: Test 05/05/25 04:04 Range/Units Sodium Level 146 H 136-145 mmol/L Potassium Level 4.3 3.5-5.1 mmol/L Chloride Level 111 101-111 mmol/L Carbon Dioxide Level 27 21-32 mmol/L Blood Urea Nitrogen 29 H 7-18 mg/dL Creatinine 1.2 0.5-1.3 mg/dL Glomerular Filtration Rate Calc 59 >90 mL/min Random Glucose 167 #H 70-105 mg/dL Total Calcium 7.8 L 8.5-10.1 mg/dL Magnesium Level 1.90 1.80-2.40 mg/dL Total Bilirubin 0.9 # 0.2-1.0 mg/dL Aspartate Amino Transf (AST/SGOT) 20 10-37 U/L Alanine Aminotransferase (ALT/SGPT) 22 # 12-78 U/L Alkaline Phosphatase 170 H 50-136 U/L Total Protein 4.9 L 6.0-8.3 g/dL Albumin 1.8 L 3.5-5.0 g/dL Coagulation Labs: Test 05/05/25 04:04 Range/Units Prothrombin Time 12.6 H 9.6-11.6 SEC Prothromb Time International Ratio 1.21 H 0.85-1.15 Activated Partial Thromboplast Time 31.0 26.3-35.5 SEC Diagnostics / Radiology: Impression and Plan: Left lower extremity DVT Stage IV colon cancer with liver metastasis and currently receiving chemotherapy with last treatment on 04/26/2025 Pancytopenia Electrolyte derangement Long history of atrial fibrillation since young adulthood not on anticoagulation History of DCCV on two separate occasions Hyperlipidemia Lexiscan stress test on 12/26/2023 with infero-apical hypokinesis, fixed inferoseptal and apical defects, no reversible defects with LVEF of 45% 2D echo on 12/28/2024 with an EF of 45-50%, grade 1 diastolic dysfunction, no LV thrombus noted, [id number] aortic stenosis, peak 29.2mmHg, mean 17.4mmHg, LAUREN 1.5 cm2, [id number] MR, mild TR, RVSP of 30-40mmHg Lymphoma s/p excision Bladder and prostate cancer s/p remote resection of the bladder and prostatectomy with creation of an ileal conduit Stage IV colon cancer with liver metastasis and currently receiving chemotherapy with last treatment on 04/26/2025 Left lower extremity DVT Cardiology has been requested to evaluate the patient for a possible thrombectomy of a LLE DVT seen via Doppler on 05/03/2025 The patient endorsed being off of Eliquis for approximately two months At this time, the patient is not a candidate for a thrombectomy due to pancytopenia requiring the need for a blood and platelet transfusions Will defer anticoagulation due to no circulatory compromise of the LLE and thrombocytopenia If platelet count remains above 50K/uL, would consider a heparin infusion for 72 hours Agree with plans for an IVC filter placement The patient is pending a VQ scan Will obtain a 2D Echocardiogram to assess for RV strain [facility] May 05, 2025 13:57
--- NOTE | 2025-05-05 18:04 | HMCSR ---
APPROVED REPORT EXAM: Two-dimensional and M-mode echocardiogram with Doppler and color Doppler. INDICATION ICD: Assess for right ventricular strain 2D Dimensions RVDd4.3 cmLVEF(%)11.0 (>50%)LVED Vol(simp.)99.0 mL IVSd0.6 (0.7-1.1cm)FS(%)5 %LVES Vol(simp.)43.0 mL LVDd5.3 (3.8-5.6cm)LVOT diam2.3 (1.8-2.4cm)LVEF(%, simp.)56 % PWd0.8 (0.7-1.1cm)LA ESV INDEX (BP)29.71 mL/m2 IVSs0.8 cm LVDs5.1 (2.5-4.0cm) PWs1.6 cm Deformation Strain Apical 4-17.6 % Apical 2-10.5 % Apical 3-23.7 % Global Strain-17.2 % M-Mode Dimensions EPSS1.6 cm LA (MM)5.5 (1.6-4.0cm) Ao Root(MM)2.8 (2.0-3.7cm) Aortic Valve AoV Vmax2.8 m/Lily Peak GR31.2 mmHgLVOT Vmax0.9 m/s AoV VTI0.6 mAo Mean GR14.5 mmHgLVOT VTI0.17 m LAUREN (VMAX)1.33 cm2Al P1/2T432 msAVA (VTI) 1.2 cm2 Mitral Valve MV E Vmax58.1 cm/sDECEL Ldrr097 ms MV A Vmax84.7 cm/sP 1/2 T55 ms E/A ratio0.7MVA (PHT)4.0 cm2 TDI E/E' Udzutn48.5E/E' Ezjjovn68.4 Medial E' Peak V3.52 cm/sLateral E' Peak V4.70 cm/s Pulmonary Valve PV Vmax0.9 m/sPV VTI0.17 mPV Mean GR1.6 mmHg PV Peak GR3.4 mmHgPI End Allison. Luis 131.5 cm/s Tricuspid Valve TR Vmax2.4 m/sRAP (EST) 8 taZcJSQD87.7 mmHg TR Peak GR23.7 mmHg Left Ventricle The left ventricle is normal size. GLS -17.0%. There is normal left ventricular wall thickness. Sigmo id septum is present without LVOT obstruction. LVEF is 50-55%. Stage I diastolic dysfunction. Right Ventricle The right ventricle is mildly dilated. The right ventricular systolic function is normal. Atria The left atrium size is normal. The right atrium size is normal. Aortic Valve Aortic valve is trileaflet, thickened. Mild aortic regurgitation is present. There is mild aortic cabrera vular stenosis LAUREN 1.2 cm2, PV 2.8 m/s. Mitral Valve There is mitral annular calcification. Mitral valve leaflets are mildly prolapsed. There is no mitral valve regurgitation noted. There is no mitral valve stenosis. Tricuspid Valve The tricuspid valve is normal in structure. There is trace of tricuspid valve regurgitation noted. Pulmonic Valve The pulmonary valve is normal in structure. There is mild pulmonic valvular regurgitation. Great Vessels The aortic root is normal in size. IVC is not well visualized. Pericardium There is no pericardial effusion. Other Information Quality : Adequate Conclusion The left ventricle is normal size. LVEF is 50-55%. Stage I diastolic dysfunction. The right ventricle is mildly dilated. The right ventricular systolic function is normal. The left atrium size is normal. The right atrium size is normal. Aortic valve is trileaflet, thickened. Mild aortic regurgitation is present. There is mild aortic valvular stenosis LAUREN 1.2 cm2, PV 2.8 m/s. There is mitral annular calcification. Mitral valve leaflets are mildly prolapsed. There is mild pulmonic valvular regurgitation.
[2025-05-05] MEDS: BALSAM PERU/CASTOR OIL 60 GM TUBE TP SCH (21:22)
[2025-05-06] VITALS (20 sets, daily range): BP systolic 148–180; BP diastolic 64–92; PULSE 56–82; RESP 17–19; TEMP 97.3–97.9; O2SAT 96
[2025-05-06 06:42] LABS: PLATELET COUNT (AUTO) 59.0 K/uL (130-400)
--- NOTE | 2025-05-06 08:10 | NUR ---
MD ROUNDS DR Jaden SCHMID SPOKE WITH PATIENT, INFORMED PATIENT WILL BE GOING FOR A IVC FILTER PLACEMENT TODAY PATIENT IN AGREEMENT PROCEDURE TO BE DONE BY INTERVENTIONAL RADIOLOGY.NPO STATUS FOR NOW.
--- NOTE | 2025-05-06 09:03 | PN ---
[facility] CARDIOLOGY PROGRESS NOTE Date Patient Seen: May 06, 2025 Time of Visit: 08:56 Interval History: [ No acute events overnight , he has been transfused platelets yesterday, the patient platelet count has up trended to 59,000 , no evidence of circulatory compromise of his LE. We have been holding anticoagulation in the setting of severe thrombocytopenia. ] Physical Examination: GENERAL: [No acute distress.] HEAD: [Normal with no signs of head trauma.] EYES: [PERRLA, EOMI, conjunctiva and sclera normal.] ENT: [Hearing grossly intact, normal oropharynx.] NECK: [Supple without JVD. There is no tenderness, lymphadenopathy, or masses. No thyromegaly. Normal carotid upstrokes without bruits.] LUNGS: [Clear breath sounds bilaterallyt. No wheezes, or rhonchi.] HEART: [Normal rate and rhythm. Normal S1 and S2 without murmurs, gallop or rub.] VASC: [Peripheral pulses +2 bilaterally.] ABD: [Bowel sounds normal, soft, nontender, no masses, no organomegaly. No audible bruits.] : [Not examined] LYMPH: [No lymphadenopathy noted.] EXT: [No clubbing, cyanosis or edema.] SKIN: [No rashes or lesions noted.] NEURO: [Awake, alert, and oriented x3. No focal sensory or strength deficits noted.] Laboratory: [ ] Hematology Labs: Test 05/06/25 06:25 05/05/25 04:04 Range/Units Platelet Count 59 #L 130-400 K/uL Mean Platelet Volume 10.7 H 7.5-10.5 fL White Blood Count 2.8 L 4.8-10.8 K/uL Red Blood Count 3.30 L 4.50-6.20 MIL/uL Hemoglobin 10.5 L 14.0-18.0 g/dL Hematocrit 32.0 L 42-54 % Mean Corpuscular Volume 97.0 79-99 fL Mean Corpuscular Hemoglobin 31.8 27.0-33.0 pg Mean Corpuscular Hemoglobin Concent 32.8 32.0-36.0 g/dL Red Cell Distribution Width 19.7 H 11.0-15.5 % Segmented Neutrophils % 91 H 40-70 % Lymphocytes % (Manual) 8 L 22-44 % Monocytes % (Manual) 1 L 2-9 % Nucleated Red Blood Cells 0.0 0.0-0.19 % Differential Comment MANUAL DIFFERENTIAL White Cell Morphology Comment Platelet Morphology Comment See comments Red Blood Cell Morphology See comments Chemistry Labs: Test 05/05/25 04:04 Range/Units Sodium Level 146 H 136-145 mmol/L Potassium Level 4.3 3.5-5.1 mmol/L Chloride Level 111 101-111 mmol/L Carbon Dioxide Level 27 21-32 mmol/L Blood Urea Nitrogen 29 H 7-18 mg/dL Creatinine 1.2 0.5-1.3 mg/dL Glomerular Filtration Rate Calc 59 >90 mL/min Random Glucose 167 #H 70-105 mg/dL Total Calcium 7.8 L 8.5-10.1 mg/dL Magnesium Level 1.90 1.80-2.40 mg/dL Total Bilirubin 0.9 # 0.2-1.0 mg/dL Aspartate Amino Transf (AST/SGOT) 20 10-37 U/L Alanine Aminotransferase (ALT/SGPT) 22 # 12-78 U/L Alkaline Phosphatase 170 H 50-136 U/L Total Protein 4.9 L 6.0-8.3 g/dL Albumin 1.8 L 3.5-5.0 g/dL Coagulation Labs: Test 05/05/25 04:04 Range/Units Prothrombin Time 12.6 H 9.6-11.6 SEC Prothromb Time International Ratio 1.21 H 0.85-1.15 Activated Partial Thromboplast Time 31.0 26.3-35.5 SEC Diagnostics / Radiology: [Copy/Paste Echos/Imaging Report here] Impression and Plan: [Left lower extremity DVT Stage IV colon cancer with liver metastasis and currently receiving chemotherapy with last treatment on 04/26/2025 Pancytopenia Electrolyte derangement Long history of atrial fibrillation since young adulthood not on anticoagulation History of DCCV on two separate occasions Hyperlipidemia Lexiscan stress test on 12/26/2023 with infero-apical hypokinesis, fixed inferoseptal and apical defects, no reversible defects with LVEF of 45% 2D echo on 12/28/2024 with an EF of 45-50%, grade 1 diastolic dysfunction, no LV thrombus noted, [id number] aortic stenosis, peak 29.2mmHg, mean 17.4mmHg, LAUREN 1.5 cm2, [id number] MR, mild TR, RVSP of 30-40mmHg Lymphoma s/p excision Bladder and prostate cancer s/p remote resection of the bladder and prostatectomy with creation of an ileal conduit Stage IV colon cancer with liver metastasis and currently receiving chemotherapy with last treatment on 04/26/2025 #Left lower extremity DVT Cardiology has been requested to evaluate the patient for a possible thrombectomy of a LLE DVT seen via Doppler on 05/03/2025 The patient endorsed being off of Eliquis for approximately two months At this time, the patient is not a candidate for a thrombectomy due to pancytopenia requiring the need for a blood and platelet transfusions Current platelet count has up trended to 59,000 Will defer anticoagulation and thrombectomy due to no circulatory compromise of the LLE and severe thrombocytopenia If platelet count remains above 50K/uL, would consider a heparin infusion for 72 hours and monitor responce. Agree with plans for an IVC filter placement today by IR 2Decho LVEF 50-55 % mild aortic valvular stenosis LAUREN 1.2 , PV 2.8 ] Thank you for this consult , cardiology will continue to follow along, to assess possibility if a trial of IV heparin if platelet counts improve. Ramon Dixon MD ATTESTATION BY PHYSICIAN I have seen and examined the patient, reviewed the above documentation, participated in medical decision making, made necessary modifications, and agree with the treatment plan as documented by my mid-level provider above. MD BINU Herrera JAMES R MD May 06, 2025 09:03
--- NOTE | 2025-05-06 10:26 | PN ---
LOCATION: [facility]. SUBJECTIVE: Again, the patient did not get the IVC filter yesterday. He is awake and alert. No fever, chills, or other complaints. REVIEW OF SYSTEMS: Negative. PHYSICAL EXAMINATION: GENERAL: Shows a pleasant man. VITAL SIGNS: Blood pressure 149/69, pulse 64, respirations 20. HEENT: Benign. CHEST: . HEART: Regular rate and rhythm. ABDOMEN: Soft. EXTREMITIES: Show edema in both legs, left worse than right. Wounds on the left leg. NEUROLOGIC: Alert and oriented. LABORATORY DATA: Lab reviewed. CBC: 2.8, 10, platelets 37,000. I do not have any labs from today. IMPRESSION: * The patient pending an IVC filter. * Acute left leg DVT. * GI bleeding from active colon cancer, not a candidate for any kind of anticoagulation. * Cystitis on admission. * Metastatic colon cancer stage 4, liver metastasis. * AFib. * Bladder cancer. * Failure to thrive. * Elderly age. PLAN: Hopefully, will get the filter in today. Continue his wound care. Continue his antibiotics. Prognosis is guarded. TID: [id number] RECEIPT: [id number]
[2025-05-06] MEDS ORDERED: HEParin-NS 1,000 UNIT/500 ML 500 ML IV ONE (11:33)
[2025-05-06] MEDS ORDERED: IODIXANOL 320 MG/ML 100 ML VIAL ONE (11:33)
[2025-05-06] MEDS ORDERED: LIDOCAINE HCL 1% 20 ML VIAL ONE (11:33)
--- NOTE | 2025-05-06 12:32 | PN ---
[facility] PROGRESS NOTE Date Patient Seen: May 06, 2025 Time of Visit: 12:32 Supervising Physician: Dr. Lionel Marshall PROBLEM LIST: Acute LLE DVT S/P IVC filter by IR on 05/06/2025 Thrombocytopenia requiring multiple platelets LLE swelling with wound Acute cystitis, CAUTI from urostomy, urine culture negative General body weakness Electrolyte derangements Dehydration Elevated liver enzymes Chronic atrial fibrillation, no AC Stage IV colon cancer with metastases with recent chemotherapy on 04/26/2025 History of bladder cancer with urostomy Failure to thrive Octogenarian INTERVAL HISTORY: Patient assessed at bedside. AAOX3. Currently on room air. US of LLE shows extensive occlusive left lower extremity DVT.Unfortunately, patient has thrombocytopenia and cannot have AC. S/P IVC filter insertion per IR. Tolerated well. Right groin intact and soft. V/Q scan pending to be done. LLE with +2 swelling, patient states he cannot move his leg too much. Denies any SOB, chest pain, abdominal pain, nausea or vomiting. Daughter and son at bedside. Plan: Monitor right groin due to S/P IVC filter Pending V/Q scan to be done Consulted cardiology on 05/05/2025 for possible thrombectomy of LLE clot, not a candidate for thrombectomy due to leukopenia Further recommendations to follow REVIEW OF SYSTEMS: 12 point ROS reviewed with patient. Pertinent positives mentioned above. Otherwise negative. PHYSICAL EXAM: GENERAL: alert, weak, awake oriented x 3 on RA HEENT: EOMI, Sclera non icteric, moist mucosa NECK: Supple, no JVD, trachea midline LUNGS: Clear breath sounds bilaterally. No wheezes HEART: Regular rate and rhythm. Normal S1 and S2, without murmurs ABD: Abdomen soft, nontender. Bowel sounds present EXT: No clubbing cyanosis (+) BLE +2 swelling, open wound to LLE NEURO: AAOX3, follows commands Vital Signs (last 8hr) Date Time Temp Pulse Resp B/P (MAP) Pulse Ox O2 Delivery O2 Flow Rate FiO2 05/06/25 12:02 97.3 61 17 156/84 95 Room Air 05/06/25 08:24 97.9 62 17 151/77 96 Room Air LABS: Hematology Labs: Test 05/06/25 06:25 05/05/25 04:04 Range/Units Platelet Count 59 #L 130-400 K/uL Mean Platelet Volume 10.7 H 7.5-10.5 fL White Blood Count 2.8 L 4.8-10.8 K/uL Red Blood Count 3.30 L 4.50-6.20 MIL/uL Hemoglobin 10.5 L 14.0-18.0 g/dL Hematocrit 32.0 L 42-54 % Mean Corpuscular Volume 97.0 79-99 fL Mean Corpuscular Hemoglobin 31.8 27.0-33.0 pg Mean Corpuscular Hemoglobin Concent 32.8 32.0-36.0 g/dL Red Cell Distribution Width 19.7 H 11.0-15.5 % Segmented Neutrophils % 91 H 40-70 % Lymphocytes % (Manual) 8 L 22-44 % Monocytes % (Manual) 1 L 2-9 % Nucleated Red Blood Cells 0.0 0.0-0.19 % Differential Comment MANUAL DIFFERENTIAL White Cell Morphology Comment Platelet Morphology Comment See comments Red Blood Cell Morphology See comments Chemistry Labs: Test 05/05/25 04:04 Range/Units Sodium Level 146 H 136-145 mmol/L Potassium Level 4.3 3.5-5.1 mmol/L Chloride Level 111 101-111 mmol/L Carbon Dioxide Level 27 21-32 mmol/L Blood Urea Nitrogen 29 H 7-18 mg/dL Creatinine 1.2 0.5-1.3 mg/dL Glomerular Filtration Rate Calc 59 >90 mL/min Random Glucose 167 #H 70-105 mg/dL Total Calcium 7.8 L 8.5-10.1 mg/dL Magnesium Level 1.90 1.80-2.40 mg/dL Total Bilirubin 0.9 # 0.2-1.0 mg/dL Aspartate Amino Transf (AST/SGOT) 20 10-37 U/L Alanine Aminotransferase (ALT/SGPT) 22 # 12-78 U/L Alkaline Phosphatase 170 H 50-136 U/L Total Protein 4.9 L 6.0-8.3 g/dL Albumin 1.8 L 3.5-5.0 g/dL Coagulation Labs: Test 05/05/25 04:04 Range/Units Prothrombin Time 12.6 H 9.6-11.6 SEC Prothromb Time International Ratio 1.21 H 0.85-1.15 Activated Partial Thromboplast Time 31.0 26.3-35.5 SEC DIAGNOSTICS / RADIOLOGY RESULTS: NA PLAN NEURO: Minimize central acting medications as possible. Maintain fall precautions, adequate lighting during the day PULMONARY: Supplemental 02 as needed. Maintain aspiration precautions at all times CARDIOVASCULAR: Follow hemodynamics. Vital signs per facility protocol GI & NUTRITION: Continue with nutritional support. Continue stool softeners and laxatives as needed. KIDNEYS & ELECTROLYTES: Strict monitoring of intake, output and overall fluid balance. Avoid nephrotoxic medications to the extent possible. Medications to be dosed according to renal function. Monitor electrolytes and replace as needed ENDOCRINE: Maintain blood glucose between 100-180 at all times. Hypoglycemia protocol in place INFECTIOUS DISEASE: Trend temperature, WBC and procalcitonin level Follow cultures, deescalate antibiotics as soon as possible. Panculture if new onset fever ONCOLOGY/HEMATOLOGY/COAGULATION: Monitor for s/s of bleeding Monitor hemoglobin, coagulation studies as needed SKIN: Pressure ulcer prevention per facility protocol Specialty mattress ORTHO/REHAB: Continue PT/OT Prophylaxis: Continue GI and DVT prophylaxis Code Status: Full Resuscitation Disposition: per primary team MIGUEL MARSHALL NP May 06, 2025 12:32
--- NOTE | 2025-05-06 13:18 | CCATH ---
PREOPERATIVE DIAGNOSES: History of DVT and high risk for PE. INDICATION: Informed consent was obtained after discussion of the risks, benefits, and alternatives of the treatment. TECHNIQUE: The right groin was prepped and draped in a sterile fashion. 1% lidocaine was used for anesthesia. Using ultrasound guidance, the needle was advanced to the right common femoral vein and the wire advanced centrally. The sheath was placed and IVC venogram was performed. Next, the [place] IVC filter was deployed in the infrarenal IVC. Completion venogram was performed. No immediate complication. All the wires and catheters were removed and a sterile dressing was applied. The patient tolerated the procedure well. FINDINGS: Completion venogram demonstrated adequate position of the infrarenal IVC filter. IMPRESSION: Uneventful placement of [place] infrarenal IVC filter using fluoroscopy guidance. The patient tolerated the procedure well. TID: [id number] RECEIPT: [id number]
--- NOTE | 2025-05-06 13:54 | NUR ---
RECEIVED PATIENT FROM [facility]IOLOGY AAO X3 , DRESSING TO RT GROIN DRY AND INTACT, PULSES PER DOPPLER POSITIVE ,AUDIBLE.BLOOD PRESSURE MONITOE PLACED ON FOR VITAL SIGNS.
--- NOTE | 2025-05-06 14:30 | NUR ---
site assessment venous access site with dressing dry and intact pedal pulses per doppler , no hematoma at insertion site .vss
--- NOTE | 2025-05-06 15:30 | NUR ---
SITE ASSESSMENT DRESSING TO RT GROIN DRY AND INTACT ,NO HEMATOMA ASSESSMENTS BEING DONE Q 30 MIN OFFERS NO COMPLAINTS SENSATION INTACT RT FOOT.
--- NOTE | 2025-05-06 16:30 | NUR ---
SITE ASSESSMENT P[ATIENT DRESSING TO RT GROIN INTACT, NO HEMATOMA OFFERS NO COMPLAINT.
[2025-05-07] VITALS (7 sets, daily range): BP systolic 122–152; BP diastolic 76–83; PULSE 59–94; RESP 16–19; TEMP 97.4–98.1; O2SAT 96
[2025-05-07 05:19] LABS: NUCLEATED RED BLOOD CELLS 0.0 % (0.0-0.19); PLATELET COUNT (AUTO) 30 K/uL (130-400); RED BLOOD CELL COUNT(AUTO) 3.40 MIL/uL (4.50-6.20); RED CELL DISTRIBUTION WIDTH 19.0 % (11.0-15.5); WHITE BLOOD COUNT (AUTO) 2.7 K/uL (4.8-10.8)
[2025-05-07 06:01] LABS: ASPARTATE AMINOTRANSFERASE 28.0 U/L (10-37); CREATININE 0.9 mg/dL (0.5-1.3); GLOMERULAR FILTR. RATE CALC 83.0 mL/min (>90); GLUCOSE,RANDOM 110.0 mg/dL (70-105); SODIUM SERUM 145.0 mmol/L (136-145); TOTAL PROTEIN, SERUM 4.6 g/dL (6.0-8.3); UREA NITROGEN, BLOOD 24.0 mg/dL (7-18)
[2025-05-07 06:44] LABS: EOSINOPHILS % (MANUAL) 1 % (1-6); LYMPHOCYTES % (MANUAL) 11 % (22-44); MONOCYTES % (MANUAL) 9 % (2-9); SEGMENTED NEUTROPHILS % 79 % (40-70)
[2025-05-07 06:45] LABS: MAN.DIFF COMMENT-IMPRESSION MANUAL DIFFERENTIAL; PLATELET MORPHOLOGY COMMENT MARKED DECREASE
--- NOTE | 2025-05-07 10:46 | PN ---
[facility] PROGRESS NOTE Date Patient Seen: May 07, 2025 Time of Visit: 10:46 Supervising Physician: Dr. Roly Coley PROBLEM LIST: Acute LLE DVT S/P IVC filter by IR on 05/06/2025 Thrombocytopenia requiring multiple platelets LLE swelling with wound Acute cystitis, CAUTI from urostomy, urine culture negative General body weakness Electrolyte derangements Dehydration Elevated liver enzymes Chronic atrial fibrillation, no AC Stage IV colon cancer with metastases with recent chemotherapy on 04/26/2025 History of bladder cancer with urostomy Failure to thrive Octogenarian INTERVAL HISTORY: Patient assessed at bedside. AAOX3. Currently on room air. US of LLE shows extensive occlusive left lower extremity DVT.Unfortunately, patient has thrombocytopenia and cannot have AC. S/P IVC filter insertion per IR on 05/06/2025. Tolerated well. Right groin intact and soft. V/Q scan negative for PE. LLE with +2 swelling, patient states he cannot move his leg too much. Will consult PT to work with patient. Might need to go to SNF. Denies any SOB, chest pain, abdominal pain, nausea or vomiting. Son at bedside. Plan: PT/OT to evaluate, patient okay to go to rehab if needed. Follow cardiology recommendations Further recommendations to follow REVIEW OF SYSTEMS: 12 point ROS reviewed with patient. Pertinent positives mentioned above. Otherwise negative. PHYSICAL EXAM: GENERAL: alert, weak, awake oriented x 3 on RA HEENT: EOMI, Sclera non icteric, moist mucosa NECK: Supple, no JVD, trachea midline LUNGS: Clear breath sounds bilaterally. No wheezes HEART: Regular rate and rhythm. Normal S1 and S2, without murmurs ABD: Abdomen soft, nontender. Bowel sounds present EXT: No clubbing cyanosis (+) BLE +2 swelling, open wound to LLE NEURO: AAOX3, follows commands Vital Signs (last 8hr) Date Time Temp Pulse Resp B/P (MAP) Pulse Ox O2 Delivery O2 Flow Rate FiO2 05/07/25 08:00 97.5 64 18 152/83 96 Room Air 21 05/07/25 04:00 98.1 65 17 144/79 95 Room Air 21 LABS: Hematology Labs: Test 05/07/25 04:55 Range/Units White Blood Count 2.7 L 4.8-10.8 K/uL Red Blood Count 3.40 L 4.50-6.20 MIL/uL Hemoglobin 10.9 L 14.0-18.0 g/dL Hematocrit 33.4 L 42-54 % Mean Corpuscular Volume 98.2 79-99 fL Mean Corpuscular Hemoglobin 32.1 27.0-33.0 pg Mean Corpuscular Hemoglobin Concent 32.6 32.0-36.0 g/dL Red Cell Distribution Width 19.0 H 11.0-15.5 % Platelet Count 30 #L 130-400 K/uL Mean Platelet Volume 12.6 H 7.5-10.5 fL Segmented Neutrophils % 79 H 40-70 % Lymphocytes % (Manual) 11 L 22-44 % Monocytes % (Manual) 9 2-9 % Eosinophils % (Manual) 1 1-6 % Nucleated Red Blood Cells 0.0 0.0-0.19 % Differential Comment MANUAL DIFFERENTIAL White Cell Morphology Comment Platelet Morphology Comment MARKED DECREASE Red Blood Cell Morphology See comments Chemistry Labs: Test 05/07/25 04:55 Range/Units Sodium Level 145 136-145 mmol/L Potassium Level 4.1 3.5-5.1 mmol/L Chloride Level 111 101-111 mmol/L Carbon Dioxide Level 24 21-32 mmol/L Blood Urea Nitrogen 24 H 7-18 mg/dL Creatinine 0.9 0.5-1.3 mg/dL Glomerular Filtration Rate Calc 83 >90 mL/min Random Glucose 110 H 70-105 mg/dL Total Calcium 8.0 L 8.5-10.1 mg/dL Magnesium Level 1.90 1.80-2.40 mg/dL Total Bilirubin 0.7 0.2-1.0 mg/dL Aspartate Amino Transf (AST/SGOT) 28 10-37 U/L Alanine Aminotransferase (ALT/SGPT) 20 12-78 U/L Alkaline Phosphatase 169 H 50-136 U/L Total Protein 4.6 L 6.0-8.3 g/dL Albumin 1.7 L 3.5-5.0 g/dL DIAGNOSTICS / RADIOLOGY RESULTS: SERVICE 1000 REASON: RULE OUT PE ORDERING PHYSICIAN: MIGUEL GUTIERREZ NP PROCEDURE: PULM VQ - NM PULMONARY/LUNG VQ SCAN EXAM: NM Lung Perfusion and Ventilation Scan. CLINICAL HISTORY: RULE OUT PE TECHNIQUE: Ventilation images of the lungs were obtained after inhalation of the radiopharmceutical. Then, radiolabeled MAA was administered intravenously and planar images of the lungs were obtained in multiple projections. COMPARISON: None provided. FINDINGS: VENTILATION: No segmental ventilation defect. PERFUSION: No segmental perfusion defect. IMPRESSION: Normal VQ scan based on modified PIOPED criteria. PLAN NEURO: Minimize central acting medications as possible. Maintain fall precautions, adequate lighting during the day PULMONARY: Supplemental 02 as needed. Maintain aspiration precautions at all times CARDIOVASCULAR: Follow hemodynamics. Vital signs per facility protocol GI & NUTRITION: Continue with nutritional support. Continue stool softeners and laxatives as needed. KIDNEYS & ELECTROLYTES: Strict monitoring of intake, output and overall fluid balance. Avoid nephrotoxic medications to the extent possible. Medications to be dosed according to renal function. Monitor electrolytes and replace as needed ENDOCRINE: Maintain blood glucose between 100-180 at all times. Hypoglycemia protocol in place INFECTIOUS DISEASE: Trend temperature, WBC and procalcitonin level Follow cultures, deescalate antibiotics as soon as possible. Panculture if new onset fever ONCOLOGY/HEMATOLOGY/COAGULATION: Monitor for s/s of bleeding Monitor hemoglobin, coagulation studies as needed SKIN: Pressure ulcer prevention per facility protocol Specialty mattress ORTHO/REHAB: Continue PT/OT Prophylaxis: Continue GI and DVT prophylaxis Code Status: Full Resuscitation Disposition: per primary team MIGUEL GUTIERREZ NP May 07, 2025 10:46
--- NOTE | 2025-05-07 11:12 | HMCIMG ---
EXAM: NM Lung Perfusion and Ventilation Scan. CLINICAL HISTORY: RULE OUT PE TECHNIQUE: Ventilation images of the lungs were obtained after inhalation of the radiopharmceutical. Then, radiolabeled MAA was administered intravenously and planar images of the lungs were obtained in multiple projections. COMPARISON: None provided. FINDINGS: VENTILATION: No segmental ventilation defect. PERFUSION: No segmental perfusion defect. IMPRESSION: Normal VQ scan based on modified PIOPED criteria. /[place]
--- NOTE | 2025-05-07 11:21 | NUR ---
MIGUEL AT BEDSIDE. EXPLAINED TO PT LUNG SCAN RESULTS. EXPLAINED TO PT THE IMPORTANCE OF WALKING. PT ACKNOWLEDGED INFORMATION. ANSWERED ALL QUESTIONS. NO FURTHER ORDERS AT THIS TIME.
[2025-05-07] MEDS: MAGNESIUM 2GM PREMIX 50ML 50 ML IV PRN (13:13)
--- NOTE | 2025-05-07 15:24 | HMCIMG ---
EXAM: CR Chest, 1 View. CLINICAL HISTORY: COMPARISON COMPARISON: None provided. FINDINGS: Chemoport is in place with the tip in the distal SVC. Mild left basilar airspace disease may reflect atelectasis and/or an infectious process. Small left pleural effusion. No pneumothorax. Heart size and pulmonary vessels are within normal limits. IMPRESSION: 1. Left basilar airspace disease, possibly representing atelectasis and/or infection, with small left pleural effusion. /[place]
--- NOTE | 2025-05-07 16:27 | NUR ---
WOUND CARE WOUND CARE DONE ON LEFT HIGGINS AREA. BACITRACIN APPLIED. KERLIX, VASELINE GAUZE, AND 2 4X4.
--- NOTE | 2025-05-07 17:06 | PN ---
Cardiology Progress Note Date of Service: 05/07/2025 Attending Human Resource Adviser: Dr. Royce Zendejas Primary Human Resource Adviser: Dr. Sheryl Shaffer Reason for Consult: DVT Problem List: -Extensive left lower extremity occlusive DVT s/p IVC filter implantation (Irena) done on 05/06/2025 -Left lower extremity venous stasis ulcer -Electrolyte derangement -Pancytopenia s/p multiple blood product transfusion (PRBC and platelets) -NATI -Stage IV colon CA with metastasis to the liver, on treatment -Bladder and prostate CA s/p bladder resection and prostatectomy with creation of ileal coduit -Lymphoma s/p excision -Paroxysmal atrial fibrillation s/p DCCV -HFpEF (LVEF: 50/55% by echo done 05/05/2025) -Abnormal Lexiscan stress test done on 12/26/2023 -Octogenarian -DNR status Subjective: This is an 84y/o male who was seen and evaluated at the bedside today. The patient complains of generalized weakness/fatigue and left lower extremity pain, but denies any chest pain, chest pressure, palpitations, or shortness of breath. There were no overnight reported events. Vitals/Labs Vital Signs Date Time Temp Pulse Resp B/P (MAP) Pulse Ox O2 Delivery O2 Flow Rate FiO2 05/07/25 16:00 97.5 69 18 122/79 95 Room Air 21 05/06/25 23:00 0 General: Awake and alert. No acute distress. Chronically ill appearing. HEENT: Normocephalic, atraumatic. EOMI. Oral mucosa was moist. Neck: No masses, JVD, or carotid bruits. Lungs: No respiratory distress. SCM. Bilateral air entry. Diminished breath sounds noted to the bilateral lower lung nichols. Cardio: Regular rate. Normal S1 and S2, +S4. No murmurs, rubs, or gallops. Abdomen: Soft, nontender, nondistended. No organomegaly. Normoactive bowel sounds x 4 quadrants. Extremities. 1+ pitting edema seen in the bilateral lower extremities. The left lower extremity is wrapped in Kerlix. No clubbing or cyanosis. Diminished pulses noted throughout. Neuro: Cranial nerves II through XII are grossly intact. No focal deficits identified. Laboratory Tests 05/07/25 04:55 Assessment -Extensive left lower extremity occlusive DVT s/p IVC filter implantation (Irena) done on 05/06/2025 -Left lower extremity venous stasis ulcer -Electrolyte derangement -Pancytopenia s/p multiple blood product transfusion (PRBC and platelets) -NATI -Stage IV colon CA with metastasis to the liver, on treatment -Bladder and prostate CA s/p bladder resection and prostatectomy with creation of ileal coduit -Lymphoma s/p excision -Paroxysmal atrial fibrillation s/p DCCV -HFpEF (LVEF: 50/55% by echo done 05/05/2025) -Abnormal Lexiscan stress test done on 12/26/2023 -Octogenarian -DNR status Plan: 1. Extensive left lower extremity occlusive DVT s/p IVC filter implantation (Irena) done on 05/06/2025 -Not a candidate for thrombectomy or DOAC therapy due to his underlying anemia and thrombocytopenia, thus IVC filter was inserted -No other treatment or interventions are needed at this time. We will be signing off of the case. Please have the patient follow up with Cardiology, Dr. Sheryl Shaffer, 2 weeks after discharge. This case was discussed with my Supervising Physician, Dr. Royce Zendejas, and the above mentioned plan was formulated and agreed upon. -Progress Note written by Ja Cullen, MSN, SOURCING CONSULTANT, AGACNP-BC JA CULLEN NP May 07, 2025 17:06
--- NOTE | 2025-05-07 17:28 | PN ---
Patient is complaining of generalized weakness. He underwent V/Q scan today. Physical examination: HEENT. Head is atraumatic, pupils are reactive to light, extraocular muscles are intact. Mucous membranes are pale. Neck. Supple, no lymphadenopathy. Chest. Decreased air entry to bilateral lung bases. No abnormal breath sounds. Heart. S1-S2 regular, systolic murmur is present. Abdomen. Urostomy bag is present on the right side of the abdomen. Bowel sounds were normal. No tenderness was elicited. Extremities. 3+ bilateral pitting edema. Labs: CBC, chemistry were reviewed. Impression plan: 1. Metastatic colon cancer with liver metastasis. 2. Acute left lower extremity DVT. 3. He is status post IVC filter. 4. GI bleeding from active colon cancer, not a candidate for anticoagulation. 5. History of bladder cancer. 6. Failure to thrive. 7. Debility. 7. Pancytopenia, due to recent chemotherapy and blood draws. Patient had a V/Q scan, no PE. Continue supportive care. He received chemotherapy a week ago, we expect to improve counts in the next week. Overall prognosis is guarded. Vitals/Labs Vital Signs Date Time Temp Pulse Resp B/P (MAP) Pulse Ox O2 Delivery O2 Flow Rate FiO2 05/07/25 16:00 97.5 69 18 122/79 95 Room Air 21 05/06/25 23:00 0 Laboratory Tests 05/07/25 04:55 Medications Current Medications Lactated Ringer's 1,000 ml @ 0 mls/hr ONCE ONCE IV Last administered on 05/02/25at 13:55; Start 05/02/25 at 12:00; Stop 05/02/25 at 12:01; Status DC Potassium Bicarbonate 50 meq ONCE ONCE PO Last administered on 05/02/25at 13:55; Start 05/02/25 at 13:30; Stop 05/02/25 at 13:31; Status DC Sodium Chloride 1,000 ml @ 75 mls/hr [id number] IV Last administered on 05/06/25at 18:59; Start 05/02/25 at 14:00; Stop 06/01/25 at 13:59 Ondansetron HCl 4 mg Q6H PRN IVP; Start 05/02/25 at 14:00; Stop 06/01/25 at 13:59 Diphenoxylate HCl/ Atropine 1 tab Q4HPRN ONCE PO; Start 05/02/25 at 14:00; Stop 05/02/25 at 14:01; Status DC Atorvastatin Calcium 20 mg DAILY PO Last administered on 05/03/25at 08:38; Start 05/03/25 at 09:00; Stop 05/03/25 at 17:30; Status DC Furosemide 20 mg AM PO Last administered on 05/07/25at 08:30; Start 05/03/25 at 09:00; Stop 06/02/25 at 08:59 Metoprolol Tartrate 25 mg BID PO Last administered on 05/07/25at 08:29; Start 05/03/25 at 09:00; Stop 06/02/25 at 08:59 Vitamin B Complex 1,000 mcg DAILY PO Last administered on 05/07/25at 08:30; Start 05/03/25 at 09:00; Stop 06/02/25 at 08:59 Gabapentin 600 mg HS PO Last administered on 05/06/25at 22:52; Start 05/02/25 at 21:30; Stop 06/01/25 at 21:29 Ceftriaxone Sodium 2 gm Q24H IVPB Last administered on 05/06/25at 22:52; Start 05/02/25 at 21:30; Stop 05/12/25 at 21:29 Bacitracin apply to left lower leg DAILY17 TP Last administered on 05/07/25at 16:19; Start 05/03/25 at 17:00; Stop 06/02/25 at 16:59 Magnesium Sulfate 50 ml @ 0 mls/hr PROTOCOL PRN IV; Start 05/03/25 at 17:30; Stop 05/03/25 at 17:31; Status DC Magnesium Sulfate 50 ml @ 0 mls/hr PROTOCOL IV; Start 05/03/25 at 17:30; Stop 05/03/25 at 17:29; Status DC Atorvastatin Calcium 20 mg HS PO Last administered on 05/06/25at 22:52; Start 05/04/25 at 21:00; Stop 06/02/25 at 08:59 Ketorolac Tromethamine 30 mg Q6H PRN IVP Last administered on 05/04/25at 04:14; Start 05/03/25 at 17:30; Stop 05/05/25 at 17:29; Status DC Potassium Chloride 100 ml @ 100 mls/hr AD PRN IV Last administered on 05/04/25at 07:02; Start 05/03/25 at 18:00; Stop 06/02/25 at 17:59 Potassium Chloride 20 meq AD PRN PO; Start 05/03/25 at 18:00; Stop 06/02/25 at 17:59 Potassium Chloride 20 meq AD PRN PO Last administered on 05/04/25at 19:20; Start 05/03/25 at 18:00; Stop 06/02/25 at 17:59 Morphine Sulfate 2 mg Q4H PRN IVP Last administered on 05/04/25at 05:54; Start 05/04/25 at 06:00; Stop 05/11/25 at 05:59 Diphenhydramine HCl 25 mg ONCE ONCE IV Last administered on 05/04/25at 17:01; Start 05/04/25 at 16:00; Stop 05/04/25 at 16:01; Status DC Dexamethasone Sodium Phosphate 10 mg ONCE ONCE IVP Last administered on 05/04/25at 17:01; Start 05/04/25 at 16:00; Stop 05/04/25 at 16:01; Status DC Wound Care/ Dressing Products 1 gm BID TP Last administered on 05/07/25at 08:30; Start 05/05/25 at 21:00; Stop 05/07/25 at 14:08; Status DC Lidocaine HCl 20 ml STK-MED ONCE .ROUTE; Start 05/06/25 at 11:33; Stop 05/06/25 at 11:33; Status DC Iodixanol 100 ml STK-MED ONCE .ROUTE; Start 05/06/25 at 11:33; Stop 05/06/25 at 11:33; Status DC Heparin Sodium/ Sodium Chloride 500 ml @ As Directed STK-MED ONCE IV; Start 05/06/25 at 11:33; Stop 05/06/25 at 11:33; Status DC Acetaminophen 650 mg Q6H PRN PO; Start 05/07/25 at 01:30; Stop 06/06/25 at 01:29 Magnesium Sulfate 50 ml @ 0 mls/hr PROTOCOL PRN IV Last administered on 05/07/25at 13:13; Start 05/07/25 at 11:30; Stop 06/06/25 at 11:29 Wound Care/ Dressing Products 1 APPL BID TP; Start 05/07/25 at 21:00; Stop 06/04/25 at 20:59 JAY NAVARRETE MD May 07, 2025 17:28
[2025-05-07] MEDS: BALSAM PERU/CASTOR OIL 60 GM TUBE TP SCH (20:37)
[2025-05-08] VITALS (9 sets, daily range): BP systolic 137–155; BP diastolic 75–89; PULSE 67–75; RESP 17–20; TEMP 97.4–98; O2SAT 96–97
--- NOTE | 2025-05-08 11:59 | PN ---
Patient is doing better, beside weakness, he does not have any other complaints. Physical examination: HEENT. Head is atraumatic, pupils are reactive to light, extraocular muscles are intact. Mucous membranes are pale. Neck. Supple, no lymphadenopathy. Chest. Decreased air entry to bilateral lung bases. No abnormal breath sounds. Heart. S1-S2 regular, systolic murmur is present. Abdomen. Urostomy bag is present on the right side of the abdomen. Bowel sounds were normal. No tenderness was elicited. Extremities. 3+ bilateral pitting edema. Labs: CBC, chemistry were reviewed. Impression plan: 1. Metastatic colon cancer with liver metastasis. 2. Acute left lower extremity DVT. 3. He is status post IVC filter. 4. GI bleeding from active colon cancer, not a candidate for anticoagulation. 5. History of bladder cancer. 6. Failure to thrive. 7. Debility. 7. Pancytopenia, due to recent chemotherapy and blood draws. Patient had a V/Q scan, no PE. Continue supportive care. He received chemotherapy a week ago, we expect to improve counts in the next week. Overall prognosis is guarded. Vitals/Labs Vital Signs Date Time Temp Pulse Resp B/P (MAP) Pulse Ox O2 Delivery O2 Flow Rate FiO2 05/08/25 11:35 97.5 68 18 140/84 95 Room Air 05/08/25 00:25 0 21 Medications Current Medications Lactated Ringer's 1,000 ml @ 0 mls/hr ONCE ONCE IV Last administered on 05/02/25at 13:55; Start 05/02/25 at 12:00; Stop 05/02/25 at 12:01; Status DC Potassium Bicarbonate 50 meq ONCE ONCE PO Last administered on 05/02/25at 13:55; Start 05/02/25 at 13:30; Stop 05/02/25 at 13:31; Status DC Sodium Chloride 1,000 ml @ 75 mls/hr [id number] IV Last administered on 05/08/25at 09:24; Start 05/02/25 at 14:00; Stop 06/01/25 at 13:59 Ondansetron HCl 4 mg Q6H PRN IVP; Start 05/02/25 at 14:00; Stop 06/01/25 at 13:59 Diphenoxylate HCl/ Atropine 1 tab Q4HPRN ONCE PO; Start 05/02/25 at 14:00; Stop 05/02/25 at 14:01; Status DC Atorvastatin Calcium 20 mg DAILY PO Last administered on 05/03/25at 08:38; Start 05/03/25 at 09:00; Stop 05/03/25 at 17:30; Status DC Furosemide 20 mg AM PO Last administered on 05/08/25at 08:03; Start 05/03/25 at 09:00; Stop 06/02/25 at 08:59 Metoprolol Tartrate 25 mg BID PO Last administered on 05/08/25at 08:03; Start 05/03/25 at 09:00; Stop 06/02/25 at 08:59 Vitamin B Complex 1,000 mcg DAILY PO Last administered on 05/08/25at 08:03; Start 05/03/25 at 09:00; Stop 06/02/25 at 08:59 Gabapentin 600 mg HS PO Last administered on 05/07/25at 20:36; Start 05/02/25 at 21:30; Stop 06/01/25 at 21:29 Ceftriaxone Sodium 2 gm Q24H IVPB Last administered on 05/07/25at 22:10; Start 05/02/25 at 21:30; Stop 05/08/25 at 09:26; Status DC Bacitracin apply to left lower leg DAILY17 TP Last administered on 05/07/25at 16:19; Start 05/03/25 at 17:00; Stop 06/02/25 at 16:59 Magnesium Sulfate 50 ml @ 0 mls/hr PROTOCOL PRN IV; Start 05/03/25 at 17:30; Stop 05/03/25 at 17:31; Status DC Magnesium Sulfate 50 ml @ 0 mls/hr PROTOCOL IV; Start 05/03/25 at 17:30; Stop 05/03/25 at 17:29; Status DC Atorvastatin Calcium 20 mg HS PO Last administered on 05/07/25at 20:36; Start 05/04/25 at 21:00; Stop 06/02/25 at 08:59 Ketorolac Tromethamine 30 mg Q6H PRN IVP Last administered on 05/04/25at 04:14; Start 05/03/25 at 17:30; Stop 05/05/25 at 17:29; Status DC Potassium Chloride 100 ml @ 100 mls/hr AD PRN IV Last administered on 05/04/25at 07:02; Start 05/03/25 at 18:00; Stop 06/02/25 at 17:59 Potassium Chloride 20 meq AD PRN PO; Start 05/03/25 at 18:00; Stop 06/02/25 at 17:59 Potassium Chloride 20 meq AD PRN PO Last administered on 05/04/25at 19:20; Start 05/03/25 at 18:00; Stop 06/02/25 at 17:59 Morphine Sulfate 2 mg Q4H PRN IVP Last administered on 05/04/25at 05:54; Start 05/04/25 at 06:00; Stop 05/11/25 at 05:59 Diphenhydramine HCl 25 mg ONCE ONCE IV Last administered on 05/04/25at 17:01; Start 05/04/25 at 16:00; Stop 05/04/25 at 16:01; Status DC Dexamethasone Sodium Phosphate 10 mg ONCE ONCE IVP Last administered on 05/04/25at 17:01; Start 05/04/25 at 16:00; Stop 05/04/25 at 16:01; Status DC Wound Care/ Dressing Products 1 gm BID TP Last administered on 05/07/25at 08:30; Start 05/05/25 at 21:00; Stop 05/07/25 at 14:08; Status DC Lidocaine HCl 20 ml STK-MED ONCE .ROUTE; Start 05/06/25 at 11:33; Stop 05/06/25 at 11:33; Status DC Iodixanol 100 ml STK-MED ONCE .ROUTE; Start 05/06/25 at 11:33; Stop 05/06/25 at 11:33; Status DC Heparin Sodium/ Sodium Chloride 500 ml @ As Directed STK-MED ONCE IV; Start 05/06/25 at 11:33; Stop 05/06/25 at 11:33; Status DC Acetaminophen 650 mg Q6H PRN PO; Start 05/07/25 at 01:30; Stop 06/06/25 at 01:29 Magnesium Sulfate 50 ml @ 0 mls/hr PROTOCOL PRN IV Last administered on 05/07/25at 13:13; Start 05/07/25 at 11:30; Stop 06/06/25 at 11:29 Wound Care/ Dressing Products 1 APPL BID TP Last administered on 05/08/25at 08:04; Start 05/07/25 at 21:00; Stop 06/04/25 at 20:59 JAY NAVARRETE MD May 08, 2025 11:58
--- NOTE | 2025-05-08 12:53 | PN ---
[facility] PROGRESS NOTE Date Patient Seen: May 08, 2025 Time of Visit: 12:52 Supervising Physician: Dr. Roly Coley PROBLEM LIST: Acute LLE DVT S/P IVC filter by IR on 05/06/2025 Thrombocytopenia requiring multiple platelets LLE swelling with wound Acute cystitis, CAUTI from urostomy, urine culture negative General body weakness Electrolyte derangements Dehydration Elevated liver enzymes Chronic atrial fibrillation, no AC Stage IV colon cancer with metastases with recent chemotherapy on 04/26/2025 History of bladder cancer with urostomy Failure to thrive Octogenarian INTERVAL HISTORY: Patient assessed at bedside. Currently on room air. States he feels better overall but very weak. PT worked with patient and they have recommended SNF. CM consulted. Platelets at 30 today. Denies any chest pain, abdominal pain, nausea or vomiting. Son and daughter at bedside. Plan: CM for SNF Follow cardiology recommendations Further recommendations to follow REVIEW OF SYSTEMS: 12 point ROS reviewed with patient. Pertinent positives mentioned above. Otherwise negative. PHYSICAL EXAM: GENERAL: alert, weak, awake oriented x 3 on RA HEENT: EOMI, Sclera non icteric, moist mucosa NECK: Supple, no JVD, trachea midline LUNGS: Clear breath sounds bilaterally. No wheezes HEART: Regular rate and rhythm. Normal S1 and S2, without murmurs ABD: Abdomen soft, nontender. Bowel sounds present EXT: No clubbing cyanosis (+) BLE +2 swelling, open wound to LLE NEURO: AAOX3, follows commands Vital Signs (last 8hr) Date Time Temp Pulse Resp B/P (MAP) Pulse Ox O2 Delivery O2 Flow Rate FiO2 05/08/25 11:35 97.5 68 18 140/84 95 Room Air 05/08/25 08:00 97.3 68 18 143/83 96 Room Air LABS: Hematology Labs: Test 05/07/25 04:55 Range/Units White Blood Count 2.7 L 4.8-10.8 K/uL Red Blood Count 3.40 L 4.50-6.20 MIL/uL Hemoglobin 10.9 L 14.0-18.0 g/dL Hematocrit 33.4 L 42-54 % Mean Corpuscular Volume 98.2 79-99 fL Mean Corpuscular Hemoglobin 32.1 27.0-33.0 pg Mean Corpuscular Hemoglobin Concent 32.6 32.0-36.0 g/dL Red Cell Distribution Width 19.0 H 11.0-15.5 % Platelet Count 30 #L 130-400 K/uL Mean Platelet Volume 12.6 H 7.5-10.5 fL Segmented Neutrophils % 79 H 40-70 % Lymphocytes % (Manual) 11 L 22-44 % Monocytes % (Manual) 9 2-9 % Eosinophils % (Manual) 1 1-6 % Nucleated Red Blood Cells 0.0 0.0-0.19 % Differential Comment MANUAL DIFFERENTIAL White Cell Morphology Comment Platelet Morphology Comment MARKED DECREASE Red Blood Cell Morphology See comments Chemistry Labs: Test 05/07/25 04:55 Range/Units Sodium Level 145 136-145 mmol/L Potassium Level 4.1 3.5-5.1 mmol/L Chloride Level 111 101-111 mmol/L Carbon Dioxide Level 24 21-32 mmol/L Blood Urea Nitrogen 24 H 7-18 mg/dL Creatinine 0.9 0.5-1.3 mg/dL Glomerular Filtration Rate Calc 83 >90 mL/min Random Glucose 110 H 70-105 mg/dL Total Calcium 8.0 L 8.5-10.1 mg/dL Magnesium Level 1.90 1.80-2.40 mg/dL Total Bilirubin 0.7 0.2-1.0 mg/dL Aspartate Amino Transf (AST/SGOT) 28 10-37 U/L Alanine Aminotransferase (ALT/SGPT) 20 12-78 U/L Alkaline Phosphatase 169 H 50-136 U/L Total Protein 4.6 L 6.0-8.3 g/dL Albumin 1.7 L 3.5-5.0 g/dL DIAGNOSTICS / RADIOLOGY RESULTS: NA PLAN NEURO: Minimize central acting medications as possible. Maintain fall precautions, adequate lighting during the day PULMONARY: Supplemental 02 as needed. Maintain aspiration precautions at all times CARDIOVASCULAR: Follow hemodynamics. Vital signs per facility protocol GI & NUTRITION: Continue with nutritional support. Continue stool softeners and laxatives as needed. KIDNEYS & ELECTROLYTES: Strict monitoring of intake, output and overall fluid balance. Avoid nephrotoxic medications to the extent possible. Medications to be dosed according to renal function. Monitor electrolytes and replace as needed ENDOCRINE: Maintain blood glucose between 100-180 at all times. Hypoglycemia protocol in place INFECTIOUS DISEASE: Trend temperature, WBC and procalcitonin level Follow cultures, deescalate antibiotics as soon as possible. Panculture if new onset fever ONCOLOGY/HEMATOLOGY/COAGULATION: Monitor for s/s of bleeding Monitor hemoglobin, coagulation studies as needed SKIN: Pressure ulcer prevention per facility protocol Specialty mattress ORTHO/REHAB: Continue PT/OT Prophylaxis: Continue GI and DVT prophylaxis Code Status: Full Resuscitation Disposition: per primary team MIGUEL GUTIERREZ NP May 08, 2025 12:52
--- NOTE | 2025-05-08 21:10 | NUR ---
MEDS SHIFT ASSESSMENT DONE, PLEASE REFER TO CHART. DUE MEDS ADMINISTERED, TOLERATED WELL. KEPT RESTED AND COMFORTABLE IN BED. CALL LIGHT WITHIN REACH. BED ALARM KEPT ACTIVATED.
[2025-05-09] VITALS (9 sets, daily range): BP systolic 120–141; BP diastolic 68–79; PULSE 65–82; RESP 18–22; TEMP 97.3–98.1; O2SAT 95–96
--- NOTE | 2025-05-09 05:01 | NUR ---
ROUNDS PT SLEPT AT INTERVALS DURING THE SHIFT. NO DISTRESS NOTED. KEPT UNDISTURBED FOR NOW. FOR MORE CARE.
--- NOTE | 2025-05-09 07:55 | PN ---
LOCATION: [facility]. SUBJECTIVE: The patient did better over the weekend. He is awake, alert. He walked, he has had 100 feet with therapy. PHYSICAL EXAMINATION: GENERAL: Shows elderly man. CHEST: Clear and soft. EXTREMITIES: Bilateral leg edema. NEUROLOGIC: Neurologically intact. IMPRESSION: * Metastatic colon cancer, liver metastasis. * Acute DVT lower extremity status post IVC filter. * GI bleeding. * Bladder cancer. * Failure to thrive. * Pancytopenia, improved. PLAN: Continue supportive care, physical therapy. The patient can probably go home in a few days once he is more stable. TID: [id number] RECEIPT: [id number]
--- NOTE | 2025-05-09 16:22 | PN ---
[facility] PROGRESS NOTE Date Patient Seen: May 09, 2025 Time of Visit: 16:22 Supervising Physician: Dr. Paxton Toledo PROBLEM LIST: Acute LLE DVT S/P IVC filter by IR on 05/06/2025 Thrombocytopenia requiring multiple platelets LLE swelling with wound Acute cystitis, CAUTI from urostomy, urine culture negative General body weakness Electrolyte derangements Dehydration Elevated liver enzymes Chronic atrial fibrillation, no AC Stage IV colon cancer with metastases with recent chemotherapy on 04/26/2025 History of bladder cancer with urostomy Failure to thrive Octogenarian INTERVAL HISTORY: Patient assessed at bedside. Currently on room air. States he feels better. Sitting on bedside chair. No overnight issues per nursing. Patient states he is not sure if he wants to go to SNF or go home but wants to know what is his cancer treatment plan and is requesting a pet scan. Denies any chest pain, abdominal pain, nausea or vomiting. No family at bedside. Plan: Disposition per primary team Follow cardiology recommendations Further recommendations to follow REVIEW OF SYSTEMS: 12 point ROS reviewed with patient. Pertinent positives mentioned above. Otherwise negative. PHYSICAL EXAM: GENERAL: alert, weak, awake oriented x 3 on RA HEENT: EOMI, Sclera non icteric, moist mucosa NECK: Supple, no JVD, trachea midline LUNGS: Clear breath sounds bilaterally. No wheezes HEART: Regular rate and rhythm. Normal S1 and S2, without murmurs ABD: Abdomen soft, nontender. Bowel sounds present EXT: No clubbing cyanosis (+) BLE +2 swelling, open wound to LLE NEURO: AAOX3, follows commands Vital Signs (last 8hr) Date Time Temp Pulse Resp B/P (MAP) Pulse Ox O2 Delivery O2 Flow Rate FiO2 05/09/25 12:00 97.7 68 20 138/77 97 Room Air 21 05/09/25 08:50 95 Room Air* 0 21 LABS: DIAGNOSTICS / RADIOLOGY RESULTS: [ ] PLAN NEURO: Minimize central acting medications as possible. Maintain fall precautions, adequate lighting during the day PULMONARY: Supplemental 02 as needed. Maintain aspiration precautions at all times CARDIOVASCULAR: Follow hemodynamics. Vital signs per facility protocol GI & NUTRITION: Continue with nutritional support. Continue stool softeners and laxatives as needed. KIDNEYS & ELECTROLYTES: Strict monitoring of intake, output and overall fluid balance. Avoid nephrotoxic medications to the extent possible. Medications to be dosed according to renal function. Monitor electrolytes and replace as needed ENDOCRINE: Maintain blood glucose between 100-180 at all times. Hypoglycemia protocol in place INFECTIOUS DISEASE: Trend temperature, WBC and procalcitonin level Follow cultures, deescalate antibiotics as soon as possible. Panculture if new onset fever ONCOLOGY/HEMATOLOGY/COAGULATION: Monitor for s/s of bleeding Monitor hemoglobin, coagulation studies as needed SKIN: Pressure ulcer prevention per facility protocol Specialty mattress ORTHO/REHAB: Continue PT/OT Prophylaxis: Continue GI and DVT prophylaxis Code Status: Full Resuscitation Disposition: per primary team MIGUEL GUTIERREZ NP May 09, 2025 16:22
[2025-05-10] VITALS (7 sets, daily range): BP systolic 114–126; BP diastolic 49–75; PULSE 68–84; RESP 18–20; TEMP 97.5–98.7; O2SAT 93–96
[2025-05-10 06:27] LABS: NUCLEATED RED BLOOD CELLS 1.1 % (0.0-0.19); PLATELET COUNT (AUTO) 49.0 K/uL (130-400); RED BLOOD CELL COUNT(AUTO) 3.13 MIL/uL (4.50-6.20); RED CELL DISTRIBUTION WIDTH 19.4 % (11.0-15.5); WHITE BLOOD COUNT (AUTO) 1.8 K/uL (4.8-10.8)
[2025-05-10 06:53] LABS: ASPARTATE AMINOTRANSFERASE 24.0 U/L (10-37); CREATININE 0.8 mg/dL (0.5-1.3); GLOMERULAR FILTR. RATE CALC 86.0 mL/min (>90); GLUCOSE,RANDOM 91.0 mg/dL (70-105); SODIUM SERUM 142.0 mmol/L (136-145); TOTAL PROTEIN, SERUM 4.4 g/dL (6.0-8.3); UREA NITROGEN, BLOOD 17.0 mg/dL (7-18)
--- NOTE | 2025-05-10 07:40 | PN ---
LOCATION: 310. SUBJECTIVE: The patient did much better overnight. He got up twice with physical therapy, sat in the chair. He is very motivated; however, he is weak and debilitated. He lives alone. He needs to be placed in a SNF, he agrees with that completely. We are going to stop the chemotherapy and re-evaluate by PET. PHYSICAL EXAMINATION: VITAL SIGNS: Blood pressure 125/77, pulse 76, respirations 20. HEENT: Benign. CHEST: Clear. ABDOMEN: Soft. EXTREMITIES: Show edema in the lower extremity. Wound to the left leg. NEUROLOGIC: Alert and oriented. LABORATORY DATA: Reviewed. CBC: 1.8, hemoglobin 9, platelets 41,000. IMPRESSION: * Pancytopenia. * Acute left flank DVT, status post IVC filter. * Left lower extremity swelling and cystitis, treated. * Dehydration. * Pancytopenia. * AFib. * Stage 4 colon cancer, liver metastases. * Bladder cancer. * Failure to thrive. PLAN: We will start on Granix support at 40 mcg subcutaneously daily. I have asked the nurses to call case management and work on SNF placement. Continue wound care. Continue all the other measures. He is doing well. TID: [id number] RECEIPT: [id number]
[2025-05-10] MEDS: TBO-FILGRASTIM 480 MCG/0.8 ML ML SQ ONE (09:47)
--- NOTE | 2025-05-10 13:33 | NUR ---
[facility] Follow-up: Patient re-assessed by wound healing team. See wound assessment. Assessment and recommendations provided to primary nurse. Education provided. Wound care done. Addendum: 05/11/25 at 1403 by ANNE-MARIE JANSEN RN RN/ Amended: Links added.
--- NOTE | 2025-05-10 15:14 | PN ---
[facility] PROGRESS NOTE Date Patient Seen: May 10, 2025 Time of Visit: 15:13 Supervising Physician: Dr. Kirt Morrissey PROBLEM LIST: Acute LLE DVT S/P IVC filter by IR on 05/06/2025 Thrombocytopenia requiring multiple platelets LLE swelling with wound Acute cystitis, CAUTI from urostomy, urine culture negative General body weakness Electrolyte derangements Dehydration Elevated liver enzymes Chronic atrial fibrillation, no AC Stage IV colon cancer with metastases with recent chemotherapy on 04/26/2025 History of bladder cancer with urostomy Failure to thrive Octogenarian INTERVAL HISTORY: Patient is seen at bedside, AAO x3 today, patient denies any she distress, no overnight events reported by nursing staff. Patient was informed today that Dr. Burnett's orders be placed for SNF. He has no objections at this time. Patient has no family at bedside today, he has been started on Granix daily by primary. No changes to medical management. Plan: Pending SNF authorization Follow cardiology recommendations Further recommendations to follow REVIEW OF SYSTEMS: 12 point ROS reviewed with patient. Pertinent positives mentioned above. Otherwise negative. PHYSICAL EXAM: GENERAL: alert, weak, awake oriented x 3 on RA HEENT: EOMI, Sclera non icteric, moist mucosa NECK: Supple, no JVD, trachea midline LUNGS: Clear breath sounds bilaterally. No wheezes HEART: Regular rate and rhythm. Normal S1 and S2, without murmurs ABD: Abdomen soft, nontender. Bowel sounds present EXT: No clubbing cyanosis (+) BLE +2 swelling, open wound to LLE NEURO: AAOX3, follows commands Vital Signs (last 8hr) Date Time Temp Pulse Resp B/P (MAP) Pulse Ox O2 Delivery O2 Flow Rate FiO2 05/10/25 12:00 97.7 68 20 126/66 94 Room Air 21 05/10/25 08:00 97.5 74 19 124/71 94 Room Air 21 05/10/25 07:30 96 Room Air* 0 21 LABS: Hematology Labs: Test 05/10/25 06:20 Range/Units White Blood Count 1.8 L 4.8-10.8 K/uL Red Blood Count 3.13 L 4.50-6.20 MIL/uL Hemoglobin 9.9 L 14.0-18.0 g/dL Hematocrit 31.1 L 42-54 % Mean Corpuscular Volume 99.4 H 79-99 fL Mean Corpuscular Hemoglobin 31.6 27.0-33.0 pg Mean Corpuscular Hemoglobin Concent 31.8 L 32.0-36.0 g/dL Red Cell Distribution Width 19.4 H 11.0-15.5 % Platelet Count 49 L 130-400 K/uL Mean Platelet Volume 10.7 H 7.5-10.5 fL Nucleated Red Blood Cells 1.1 H 0.0-0.19 % Chemistry Labs: Test 05/10/25 06:20 Range/Units Sodium Level 142 136-145 mmol/L Potassium Level 3.5 3.5-5.1 mmol/L Chloride Level 110 101-111 mmol/L Carbon Dioxide Level 26 21-32 mmol/L Blood Urea Nitrogen 17 7-18 mg/dL Creatinine 0.8 0.5-1.3 mg/dL Glomerular Filtration Rate Calc 86 >90 mL/min Random Glucose 91 70-105 mg/dL Total Calcium 7.7 L 8.5-10.1 mg/dL Magnesium Level 2.00 1.80-2.40 mg/dL Total Bilirubin 0.9 0.2-1.0 mg/dL Aspartate Amino Transf (AST/SGOT) 24 10-37 U/L Alanine Aminotransferase (ALT/SGPT) 19 12-78 U/L Alkaline Phosphatase 185 H 50-136 U/L Total Protein 4.4 L 6.0-8.3 g/dL Albumin 1.7 L 3.5-5.0 g/dL DIAGNOSTICS / RADIOLOGY RESULTS: [ ] PLAN NEURO: Minimize central acting medications as possible. Maintain fall precautions, adequate lighting during the day PULMONARY: Supplemental 02 as needed. Maintain aspiration precautions at all times CARDIOVASCULAR: Follow hemodynamics. Vital signs per facility protocol GI & NUTRITION: Continue with nutritional support. Continue stool softeners and laxatives as needed. KIDNEYS & ELECTROLYTES: Strict monitoring of intake, output and overall fluid balance. Avoid nephrotoxic medications to the extent possible. Medications to be dosed according to renal function. Monitor electrolytes and replace as needed ENDOCRINE: Maintain blood glucose between 100-180 at all times. Hypoglycemia protocol in place INFECTIOUS DISEASE: Trend temperature, WBC and procalcitonin level Follow cultures, deescalate antibiotics as soon as possible. Panculture if new onset fever ONCOLOGY/HEMATOLOGY/COAGULATION: Monitor for s/s of bleeding Monitor hemoglobin, coagulation studies as needed SKIN: Pressure ulcer prevention per facility protocol Specialty mattress ORTHO/REHAB: Continue PT/OT Prophylaxis: Continue GI and DVT prophylaxis Code Status: Full Resuscitation Disposition: per primary team YONATHAN SHAVER May 10, 2025 15:14
--- NOTE | 2025-05-10 17:32 | NUR ---
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 PATIENT SAYS HE TOLD MD THAT HE NEEDS TO GO TO REHAB. STATES THAT HIS SPOUSE WAS AT [facility] AND THAT IS WHERE HE WOULD LIKE TO GO .SIGNED SARIKA AND DISCUSSED THE BENEFITS WITH DAUGHTERS. DISCUSSED W FRANCISCA. DISCUSSED PLAN OF CARE WITH SENIOR CORE JAVA DEVELOPER SIVAKUMAR. PATIENTS VOICE AND BREATHING IS A LITTLE RATTLEY. BLE ARE SWOLLEN. ORDERS RECEIVED BY THIS CM AND ENTERED BY FRANCISCA FOR CXR, LASIX AND KCL. ADVISED DTRS THAT CAPRI FROM [facility] WOULD BE ROUNDING TOMORROW TO EXPLAIN THE PROGRAM. WOULD BE TRANSFERRED VIA WHEELCHAIR VAN WHENEVER MD'S SAY IS READY. ASKING ABOUT PET SCAN, ADVISED PATIENT /DTRS PET SCANS ARE NOT DONE AT THIS HOSPITAL MADE CLEAR TO THEM THAT WHEN A PATIENT IS RECEIVING CHEMO OR RADIATION THEY ARE NOT ELIGIBLE FOR SNF AT THE SAME TIME, HOWEVER THEY CAN HAVE DIAGNOSTICS DONE, ALL VERBALIZED UNDERSTANDING
[2025-05-10] MEDS: PoTASSium chloRIDE 20MEQ ER 20 MEQ ERTAB PO ONE ×2 (17:35→20:29)
--- NOTE | 2025-05-10 17:39 | NUR ---
REVIEWED NOTE FROM THIS AM DR. FOX STATES WANTS SNF REFERRAL
[2025-05-10] MEDS ORDERED: BACITRACIN 1 EACH PACKET TP SCH (21:00)
[2025-05-10] MEDS ORDERED: BACITRACIN 28.4 GM OINT TP SCH (21:00)
[2025-05-11 00:10] VITALS: BP 125/72; PULSE 80; RESP 20; TEMP 98.2
--- NOTE | 2025-05-11 04:32 | HMCIMG ---
EXAM: CR Chest, 1 view CLINICAL HISTORY: Congestion. COMPARISON: Chest radiograph dated 04/29/2025. FINDINGS: The right side Mediport catheter tip overlies the superior cavoatrial junction. The lungs show no infiltrates or other acute findings. No pleural effusion or pneumothorax. The cardiomediastinal silhouette is within normal limits. Mild atherosclerotic aorta. No acute osseous abnormality. IMPRESSION: No acute cardiopulmonary process is evident. No interval changes. /Henry
[2025-05-11 04:48] VITALS: BP 111/63; PULSE 89; RESP 20; TEMP 98.3
[2025-05-11 05:09] LABS: NUCLEATED RED BLOOD CELLS 0.0 % (0.0-0.19); PLATELET COUNT (AUTO) 65.0 K/uL (130-400); RED BLOOD CELL COUNT(AUTO) 3.17 MIL/uL (4.50-6.20); RED CELL DISTRIBUTION WIDTH 19.8 % (11.0-15.5); WHITE BLOOD COUNT (AUTO) 5.6 K/uL (4.8-10.8)
[2025-05-11 05:28] LABS: CREATININE 1.0 mg/dL (0.5-1.3); GLOMERULAR FILTR. RATE CALC 73.0 mL/min (>90); GLUCOSE,RANDOM 106.0 mg/dL (70-105); SODIUM SERUM 142.0 mmol/L (136-145); UREA NITROGEN, BLOOD 18.0 mg/dL (7-18)
[2025-05-11 07:50] VITALS: BP 97/63; PULSE 72; RESP 19; TEMP 97.8
--- NOTE | 2025-05-11 07:54 | PN ---
SUBJECTIVE: The patient did better overnight. He was able to walk with his therapy. He is awake, alert. Pending SNF placement. REVIEW OF SYSTEMS: Negative. PHYSICAL EXAMINATION: GENERAL: Shows a pleasant man. VITAL SIGNS: Blood pressure 111/63, pulse 83, respirations 20. CHEST: Clear. ABDOMEN: Soft. EXTREMITIES: Show edema. NEUROLOGIC: Alert and oriented. IMPRESSION: * The patient has acute left leg DVT, status post IVC filter. * Pancytopenia. * Left lower extremity wound. * Metastatic colon cancer, stage 4. * Liver metastasis. * Bladder cancer. * Elderly age. * Failure to thrive. PLAN: Continue supportive care. Continue physical therapy and wound care. He is ready to go to longterm once accepted. TID: [id number] RECEIPT: [id number]
--- NOTE | 2025-05-11 10:33 | NUR ---
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
[2025-05-11 11:48] VITALS: BP 120/66; PULSE 78; RESP 19; TEMP 97.7
--- NOTE | 2025-05-11 12:05 | NUR ---
SW spoke with Mallory from [facility] and OOHDHR will be completed by [facility] outreach and education social worker. Pt was agreeable to this.
[2025-05-11 15:16] VITALS: BP 127/62; PULSE 82; RESP 19; TEMP 97.7
--- NOTE | 2025-05-11 16:30 | NUR ---
DISCHARGE PATIENT DISCHARGED TO [facility] VIA WHEELCHAIR BY TRANSPORTER FROM [place] VIA FACILITY [facility].
--- NOTE | 2025-05-11 21:51 | PN ---
[facility] PROGRESS NOTE Date Patient Seen: May 11, 2025 Time of Visit: 21:51 Supervising Physician: Dr. Morrissey PROBLEM LIST: Acute LLE DVT S/P IVC filter by IR on 05/06/2025 Thrombocytopenia requiring multiple platelets LLE swelling with wound Acute cystitis, CAUTI from urostomy, urine culture negative General body weakness Electrolyte derangements Dehydration Elevated liver enzymes Chronic atrial fibrillation, no AC Stage IV colon cancer with metastases with recent chemotherapy on 04/26/2025 History of bladder cancer with urostomy Failure to thrive Octogenarian INTERVAL HISTORY: Patient evaluated at bedside today, he is on room air at this time, white count 5.6, hemoglobin 10.6, renal function within normal limits. Patient continues on Granix per primary team. Pending discharge to SNF facility today. Plan: Pending SNF transportation Follow cardiology recommendations Further recommendations to follow REVIEW OF SYSTEMS: 12 point ROS reviewed with patient. Pertinent positives mentioned above. Otherwise negative. PHYSICAL EXAM: GENERAL: alert, weak, awake oriented x 3 on RA HEENT: EOMI, Sclera non icteric, moist mucosa NECK: Supple, no JVD, trachea midline LUNGS: Clear breath sounds bilaterally. No wheezes HEART: Regular rate and rhythm. Normal S1 and S2, without murmurs ABD: Abdomen soft, nontender. Bowel sounds present EXT: No clubbing cyanosis (+) BLE +2 swelling, open wound to LLE NEURO: AAOX3, follows commands Vital Signs (last 8hr) Date Time Temp Pulse Resp B/P (MAP) Pulse Ox O2 Delivery O2 Flow Rate FiO2 05/11/25 15:16 97.7 82 19 127/62 96 Nasal Cannula 1.0 LABS: Hematology Labs: Test 05/11/25 04:39 Range/Units White Blood Count 5.6 # 4.8-10.8 K/uL Red Blood Count 3.17 L 4.50-6.20 MIL/uL Hemoglobin 10.3 L 14.0-18.0 g/dL Hematocrit 31.7 L 42-54 % Mean Corpuscular Volume 100.0 H 79-99 fL Mean Corpuscular Hemoglobin 32.5 27.0-33.0 pg Mean Corpuscular Hemoglobin Concent 32.5 32.0-36.0 g/dL Red Cell Distribution Width 19.8 H 11.0-15.5 % Platelet Count 65 #L 130-400 K/uL Mean Platelet Volume 12.6 H 7.5-10.5 fL Nucleated Red Blood Cells 0.0 0.0-0.19 % Chemistry Labs: Test 05/11/25 04:39 05/10/25 06:20 Range/Units Sodium Level 142 136-145 mmol/L Potassium Level 3.9 3.5-5.1 mmol/L Chloride Level 109 101-111 mmol/L Carbon Dioxide Level 23 21-32 mmol/L Blood Urea Nitrogen 18 7-18 mg/dL Creatinine 1.0 0.5-1.3 mg/dL Glomerular Filtration Rate Calc 73 >90 mL/min Random Glucose 106 H 70-105 mg/dL Total Calcium 7.9 L 8.5-10.1 mg/dL Magnesium Level 2.00 1.80-2.40 mg/dL Total Bilirubin 0.9 0.2-1.0 mg/dL Aspartate Amino Transf (AST/SGOT) 24 10-37 U/L Alanine Aminotransferase (ALT/SGPT) 19 12-78 U/L Alkaline Phosphatase 185 H 50-136 U/L Total Protein 4.4 L 6.0-8.3 g/dL Albumin 1.7 L 3.5-5.0 g/dL DIAGNOSTICS / RADIOLOGY RESULTS: [ ] PLAN NEURO: Minimize central acting medications as possible. Maintain fall precautions, adequate lighting during the day PULMONARY: Supplemental 02 as needed. Maintain aspiration precautions at all times CARDIOVASCULAR: Follow hemodynamics. Vital signs per facility protocol GI & NUTRITION: Continue with nutritional support. Continue stool softeners and laxatives as needed. KIDNEYS & ELECTROLYTES: Strict monitoring of intake, output and overall fluid balance. Avoid nephrotoxic medications to the extent possible. Medications to be dosed according to renal function. Monitor electrolytes and replace as needed ENDOCRINE: Maintain blood glucose between 100-180 at all times. Hypoglycemia protocol in place INFECTIOUS DISEASE: Trend temperature, WBC and procalcitonin level Follow cultures, deescalate antibiotics as soon as possible. Panculture if new onset fever ONCOLOGY/HEMATOLOGY/COAGULATION: Monitor for s/s of bleeding Monitor hemoglobin, coagulation studies as needed SKIN: Pressure ulcer prevention per facility protocol Specialty mattress ORTHO/REHAB: Continue PT/OT Prophylaxis: Continue GI and DVT prophylaxis Code Status: Full Resuscitation Disposition: per primary team YONATHAN SHAVER May 11, 2025 21:51
== END 2025-05-11 16:30 | DRG 698 ==
LOC: EDH 11:21 → EDHIP 13:33 → 3BH 16:00
PROVIDERS: ADMIT Internal Medicine Hematology & Oncology; ATTEND Internal Medicine Hematology & Oncology
PROC: 02HV33Z Insertion of Infusion Device into Superior Vena Cava, Percutaneous Approach (ICD-10-PCS; principal; 2025-05-02)
PROC: 30233R1 Transfusion of Nonautologous Platelets into Peripheral Vein, Percutaneous Approach (ICD-10-PCS; 2025-05-04)
PROC: 30233N1 Transfusion of Nonautologous Red Blood Cells into Peripheral Vein, Percutaneous Approach (ICD-10-PCS; 2025-05-04)
PROC: 06H03DZ Insertion of Intraluminal Device into Inferior Vena Cava, Percutaneous Approach (ICD-10-PCS; 2025-05-06)
DX: T83.518A Infection and inflammatory reaction due to other urinary catheter, initial encounter (principal); D61.810 Antineoplastic chemotherapy induced pancytopenia; I82.412 Acute embolism and thrombosis of left femoral vein; C18.9 Malignant neoplasm of colon, unspecified; C78.7 Secondary malignant neoplasm of liver and intrahepatic bile duct; C85.90 Non-Hodgkin lymphoma, unspecified, unspecified site; I50.30 Unspecified diastolic (congestive) heart failure; N17.9 Acute kidney failure, unspecified; N30.00 Acute cystitis without hematuria; K92.2 Gastrointestinal hemorrhage, unspecified; I82.442 Acute embolism and thrombosis of left tibial vein; E86.0 Dehydration; E87.6 Hypokalemia; I25.10 Atherosclerotic heart disease of native coronary artery without angina pectoris; C61 Malignant neoplasm of prostate; Y84.6 Urinary catheterization as the cause of abnormal reaction of the patient, or of later complication, without mention of misadventure at the time of the procedure; Z20.822 Contact with and (suspected) exposure to COVID-19; E78.5 Hyperlipidemia, unspecified; I11.0 Hypertensive heart disease with heart failure; I48.0 Paroxysmal atrial fibrillation; I83.029 Varicose veins of left lower extremity with ulcer of unspecified site; R62.7 Adult failure to thrive; T45.1X5A Adverse effect of antineoplastic and immunosuppressive drugs, initial encounter; Y83.8 Other surgical procedures as the cause of abnormal reaction of the patient, or of later complication, without mention of misadventure at the time of the procedure; Z66 Do not resuscitate; Z95.828 Presence of other vascular implants and grafts; Z85.46 Personal history of malignant neoplasm of prostate; Z79.899 Other long term (current) drug therapy; Z93.6 Other artificial openings of urinary tract status; Z90.49 Acquired absence of other specified parts of digestive tract; Z68.26 Body mass index [BMI] 26.0-26.9, adult; Y92.89 Other specified places as the place of occurrence of the external cause
CPT/HCPCS: 36415; 36430; 36556; 37191; 71045; 78582; 80048; 80053; 81001; 82550; 83690; 83735; 84145; 85025; 85027; 85049; 85610; 85730; 86850; 86900; 86901; 86923; 87040; 87086; 87635; 87804; 87880; 93005; 93306; 93356; 93970; 99285; A9540; A9558; C1769; C1894; G0378; J0696; J1100; J1200; J1644; J1885; J1938; J2270; J3475; J3480; J7120; P9016; P9034; Q9967; C1751; C1880; J1447

== ENCOUNTER 2025-05-15 13:45 | Inpatient (IN) | payer MEDICARE ==
[2025-05-15] VITALS (7 sets, daily range): PULSE 79–112; RESP 19–37; O2SAT 95–100
[~2025-05-15] VITALS: Ht 182.9 cm; Wt 50.4 kg
[~2025-05-15 13:45] MED LIST changes: -AMIO200T73 PO; -METH-386 PO
[2025-05-15 13:59] LABS: ABG BASE EXCESS -1.5 mmol/L (-2.0-3.0); ABG HCO3 21.2 mmol/L (21.0-28.0); ABG OXYGEN SATURATION 93.6 % (94.0-98.0); ABG PCO2 29 mmHg (35-48); ABG PH 7.478 (7.350-7.450); CARBON MONOXIDE 0.6 % (0.5-1.5); PO2, ARTERIAL BG 73.9 mmHg (83.0-108.0); TEMPERATURE, CELSIUS BG 37.0 CELSIUS (35.5-37.0); VENT MODE, BG NRM (ROOM AIR)
--- NOTE | 2025-05-15 14:06 | EKG ---
[facility] Test Date: 2025-05-15 Test Time: 14:02:50 Pat Name: CATY MANJARREZ Department: ED Room: 220 Gender: M [place]: [id number] : [id number] Requested By: NISHA GAUILAR Order Number: [id number] Reading MD: Laura Houston Measurements Intervals [place] Rate: 93 P: 52 NV: 217 QRS: -53 QRSD: 112 T: 77 QT: 409 QTc: 510 Interpretive Statements Sinus rhythm Prolonged NV interval Inferior infarct, old Anteroseptal infarct, old Prolonged QT interval Compared to ECG 05/02/2025 12:13:17 Left anterior fascicular block no longer present Myocardial infarct finding still present Electronically Signed On 05-18-2025 14:28:50 CDT by Laura Houston Please click the below link to view image of tracing.
[2025-05-15 14:20] LABS: IMMATURE GRANULOCYTE ABSOLUTE 1.02 K/uL (0-1); NUCLEATED RED BLOOD CELLS 0.6 % (0.0-0.19); PLATELET COUNT (AUTO) 90 K/uL (130-400); RED BLOOD CELL COUNT(AUTO) 3.25 MIL/uL (4.50-6.20); RED CELL DISTRIBUTION WIDTH 20.8 % (11.0-15.5); WHITE BLOOD COUNT (AUTO) 14.6 K/uL (4.8-10.8)
[2025-05-15 14:30] LABS: CREATININE 1.6 mg/dL (0.5-1.3); GLOMERULAR FILTR. RATE CALC 42.0 mL/min (>90); GLUCOSE,RANDOM 110.0 mg/dL (70-105); SODIUM SERUM 145.0 mmol/L (136-145); UREA NITROGEN, BLOOD 32.0 mg/dL (7-18)
[2025-05-15 14:37] LABS: BAND NEUTROPHILS % (MANUAL) 7 % (0-2); LYMPHOCYTES % (MANUAL) 5 % (22-44); MAN.DIFF COMMENT-IMPRESSION MANUAL DIFFERENTIAL; MONOCYTES % (MANUAL) 3 % (2-9); PLATELET MORPHOLOGY COMMENT DECREASED; SEGMENTED NEUTROPHILS % 85 % (40-70); WBC MORPHOLOGY CONSISTENT W/DIFF
--- NOTE | 2025-05-15 15:00 | NUR ---
ALEXEY CATH ACCESSED ORDERED USING STERILE TECHNIQUE, PT TOLERATED WELL.
--- NOTE | 2025-05-15 15:25 | HMCIMG ---
EXAM: CR Chest, 1 View. CLINICAL HISTORY: sob COMPARISON: Radiograph dated May 10, 2025 Findings: Right Mediport catheter is unchanged in position. Interval increased bilateral lower lobe airspace disease presumed to reflect pneumonia. Small bilateral effusions. No pneumothorax. Heart size and pulmonary vessels appear within normal limits. IMPRESSION: 1. Bilateral lower lobe pneumonia, increased since prior, with small bilateral pleural effusions. 2. No pneumothorax. /[place]
[2025-05-15 15:27] LABS: GLUCOSE, URINE (UA) NEGATIVE (NEGATIVE); LEUKOCYTE ESTERASE ,URINE NEGATIVE Leu/uL (NEGATIVE); NITRATE,URINE NEGATIVE (NEGATIVE); OCCULT BLOOD,URINE NEGATIVE (NEGATIVE)
[2025-05-15 15:31] LABS: ADD UA MICROSCOPIC YES; APPEARANCE,URINE HAZY (CLEAR)
--- NOTE | 2025-05-15 15:42 | ERN ---
General Chief Complaint: Shortness of Breath Stated Complaint: SOB Time Seen by MD: 13:51 Source: patient, family, EMS History of Present Illness Initial Comments Patient is a an 84-year-old gentleman coming in in respiratory distress. Per EMS patient has been satting in the 80s was placed on 4 L of oxygen. Patient has been having a cough and congestion for a couple of days. Patient has been history of atrial fibrillation. Allergies: Coded Allergies: No Known Drug Allergies (Unverified Allergy, Unknown, 07/14/23) Home Meds Reported Medications Furosemide (Furosemide) 20 Mg Tablet, 20 MG PO AM, TAB 01/23/25 Cyanocobalamin (Vitamin B-12) (Vitamin B-12) 1,000 Mcg Capsule, 1000 CAP PO DAILY for 30 Days, #30 CAP 0 Refills 10/20/24 Atorvastatin Calcium (LIPITOR) 20 Mg Tab, 1 TAB PO DAILY for 30 Days, #30 TAB 0 Refills 10/20/24 Gabapentin (Gabapentin) 600 Mg Tablet, 600 MG PO BEDTIME, TAB 02/16/24 Metoprolol Tartrate (Metoprolol Tartrate) 25 Mg Tablet, 25 MG PO BID, TAB 07/14/23 Discontinued Reported Medications Amiodarone HCl (Amiodarone HCl) 200 Mg Tablet, 200 MG PO BID, TAB 01/23/25 Past Medical History Past Medical History: A-Fib, CAD, Cancer, DVT, Hypertension Medical History Other: BLADDER &PROSTATE CA. LYMPHOMA, COLON CA, LORENZO CATHETER Past Surgical History: Appendectomy, Other Surgical History Other: HERNIA REPAIR Social History Social History: Negative, Other ROS Dictation CONSTITUTIONAL: No chills, no fever, no weakness, no diaphoresis, no malaise. HEAD/FACE: No signs of trauma. EENT: No eye pain, no blurred vision, no tearing, no double vision, no ear hermilo n, no ear discharge, no nose pain, no nasal congestion, no throat pain, no throat swelling, no mouth pain. RESPIRATORY: cough, no orthopnea, SOB, no stridor, no wheezing. CARDIOVASCULAR: No chest pain, no edema, no palpitations, no syncope. GASTROINTESTINAL/ABDOMINAL: No abdominal pain, no constipation, no diarrhea, no nausea, no vomiting. GENITOURINARY: No abnormal discharge, no dysuria, no frequent urination, no hematuria. No complaints of pain in the genitals. MUSCULOSKELETAL: No back pain, no gout, no joint pain, no joint swelling, no muscle pain, no muscle stiffness, no neck pain. INTEGUMENTARY: No change in color, no change in hair/nails, no dryness, no lesion, no lumps, no rash. NEUROLOGICAL/PSYCH: No anxiety, not depressed, no emotional problem, no headache, no numbness, no pre-existing deficit, no history of seizures, no tremors, no weakness. HEMATOLOGIC/LYMPHATIC: Not anemic, no history of blood clots, no apparent bleeding, no bruising, glands not swollen. All Systems Negative, Except as Noted. Physical Exam Physical Exam Dictation VITAL SIGNS: Reviewed. GENERAL APPEARANCE: Alert, oriented x3, no acute distress, obese. HEAD AND FACE: Non-traumatic. EYES: PERRL, pink conjunctivas, eyelid no trauma, anterior chamber clear. EARS: Pinnas intact and no signs of trauma or erythema. Ear canals clear and no discharge. TMs no erythema. NOSE: No discharge, no bleeding. OROPHARYNX: Mouth normal, teeth no caries, tongue pink. Pharynx clear, no tello thema. Tonsils no exudates, no abscesses noted. Mucous membrane moist. NECK: Supple, non-tender, no thyromegaly, no masses, no JVD, no bruits. BREAST: Deferred. CHEST: No tenderness, no crepitus, no paradoxical movement, no retractions. LUNGS: Clear, well-ventilated, symmetric, rales, no wheezing, rhonchi, no stridor, decreased breath sounds bilaterally. HEART: Regular rate, regular rhythm, no murmur, no gallops. VASCULAR: No peripheral edema. ABDOMEN: Soft, positive bowel sounds, nondistended, no guarding, nontender, no rebound, no masses no hepatomegaly, no splenomegaly, no Salguero's sign, no hernias. RECTAL: Deferred. GENITAL: Deferred. NEUROLOGICAL: Normal speech, gross motor function intact, gross sensory function intact. MUSCULOSKELETAL: Neck nontender, full range of motion, back nontender, full range of motion. EXTREMITIES: Nontender, full range of motion. SKIN: Color pink, dry, no turgor, no rash, no lacerations, no abrasions, no contusions. LYMPHATICS: Deferred. Results Laboratory and Microbiology Lab and Micro Result Laboratory Tests Test 05/15/25 13:57 05/15/25 14:10 05/15/25 15:20 Blood Gas Specimen Type Arterial Arterial Blood pH 7.478 (7.350-7.450) Arterial Blood Partial Pressure CO2 29 mmHg (35-48) L Arterial Blood Partial Pressure O2 73.9 mmHg (83.0-108.0) L Arterial Blood HCO3 21.2 mmol/L (21.0-28.0) Arterial Blood Oxygen Saturation 93.6 % (94.0-98.0) L Arterial Blood Base Excess -1.5 mmol/L (-2.0-3.0) Hemoglobin (Blood Gas) 11.4 g/dL (13.5-17.5) L Sodium (Blood Gas) 138 MMOL/L (136-145) Bedside Potassium (Blood Gas) 4.1 MMOL/L (3.4-4.5) Bedside Chloride (Blood Gas) 108 MMOL/L (98-107) H Bedside Glucose (Blood Gas) 105 MG/DL (65-95) H Bedside Ionized Calcium (Blood Gas) 1.15 MMOL/L (1.15-1.33) Bedside Lactic Acid (Blood Gas) 1.79 MMOL/L (0.36-0.75) H Blood Gas Temperature 37.0 CELSIUS (35.5-37.0) Blood Gas Flow-by 15.00 L/min (0.00-15.00) Blood Gas Vent Mode NRM (ROOM AIR) FiO2 100.0 % Blood Gas Specimen Comment DR.REYNA SUZIE White Blood Count 14.6 K/uL (4.8-10.8) H Red Blood Count 3.25 MIL/uL (4.50-6.20) L Hemoglobin 10.5 g/dL (14.0-18.0) L Hematocrit 33.4 % (42-54) L Mean Corpuscular Volume 102.8 fL (79-99) H Mean Corpuscular Hemoglobin 32.3 pg (27.0-33.0) Mean Corpuscular Hemoglobin Concent 31.4 g/dL (32.0-36.0) L Red Cell Distribution Width 20.8 % (11.0-15.5) H Platelet Count 90 K/uL (130-400) L Mean Platelet Volume 11.1 fL (7.5-10.5) H Immature Granulocyte % (Auto) 7.0 % (0-1) H Neutrophils (%) (Auto) 75.8 % (40.0-77.0) Lymphocytes (%) (Auto) 3.2 % (21.0-51.0) L Monocytes (%) (Auto) 13.5 % (3.0-13.0) H Eosinophils (%) (Auto) 0.0 % (0.0-8.0) Basophils (%) (Auto) 0.5 % (0.0-5.0) Neutrophils # (Auto) 11.1 K/uL (1.8-7.7) H Lymphocytes # (Auto) 0.5 K/uL (1.0-4.8) L Monocytes # (Auto) 2.0 K/uL (0.1-1.0) H Eosinophils # (Auto) 0.00 K/uL (0.00-0.70) Basophils # (Auto) 0.07 K/uL (0.00-0.20) Absolute Immature Granulocyte (auto 1.02 K/uL (0-1) H Segmented Neutrophils % 85 % (40-70) H Band Neutrophils % 7 % (0-2) H Lymphocytes % (Manual) 5 % (22-44) L Monocytes % (Manual) 3 % (2-9) Nucleated Red Blood Cells 0.6 % (0.0-0.19) H Differential Comment MANUAL DIFFERENTIAL White Cell Morphology Comment CONSISTENT W/DIFF Platelet Morphology Comment DECREASED Red Blood Cell Morphology See comments Sodium Level 145 mmol/L (136-145) Potassium Level 4.2 mmol/L (3.5-5.1) Chloride Level 109 mmol/L (101-111) Carbon Dioxide Level 27 mmol/L (21-32) Blood Urea Nitrogen 32 mg/dL (7-18) H Creatinine 1.6 mg/dL (0.5-1.3) H Glomerular Filtration Rate Calc 42 mL/min (>90) Random Glucose 110 mg/dL (70-105) H Total Calcium 7.8 mg/dL (8.5-10.1) L Magnesium Level 2.00 mg/dL (1.80-2.40) Troponin I High Sensitivity 41 ng/L (4-75) B-Type Natriuretic Peptide 81 pg/mL (0-100) Urine Color YELLOW (YELLOW) Urine Appearance HAZY (CLEAR) Urine pH 5.5 (5.0-8.0) Urine Specific [place] 1.015 (1.001-1.031) Urine Protein 10 mg/dL (NEGATIVE) H Urine Glucose (UA) NEGATIVE mg/dL (NEGATIVE) Urine Ketones NEGATIVE mg/dL (NEGATIVE) Urine Occult Blood NEGATIVE (NEGATIVE) Urine Nitrate NEGATIVE (NEGATIVE) Urine Bilirubin NEGATIVE mg/dL (NEGATIVE) Urine Urobilinogen 0.2 mg/dL (0.2-1.0) Urine Leukocyte Esterase NEGATIVE Bi/uL Urine RBC 0-1 /HPF (0-1) Urine WBC 6-10 /HPF (0-1) H Urine Bacteria FEW /HPF (None Seen) Labs Reviewed?: Yes EKG/XRAY/US/CT/MRI EKG Comment 04/2025 time 2:02 p.m. Ventricular rate 93 Sinus rhythm [place] [address] wave elevation or depression X-RAY Comment [address] [address] IMAGING REPORT Signed PATIENT: CATY MANJARREZ JR MR#: [id number] : 1940 SEX: M AGE: 84 LOCATION: ED ORDER 1352 STATUS: [facility] REPORT#: [id number] SERVICE 1351 REASON: sob ORDERING PHYSICIAN: NISHA AGUILAR MD PROCEDURE: CXR1VW - CHEST 1VW EXAM: CR Chest, 1 View. CLINICAL HISTORY: sob COMPARISON: Radiograph dated May 10, 2025 Findings: Right Mediport catheter is unchanged in position. Interval increased bilateral lower lobe airspace disease presumed to reflect pneumonia. Small bilateral effusions. No pneumothorax. Heart size and pulmonary vessels appear within normal limits. IMPRESSION: 1. Bilateral lower lobe pneumonia, increased since prior, with small bilateral pleural effusions. 2. No pneumothorax. /[place] DICTATED BY: ASUNCION HARO Jr., MD DATE: 05/15/251623 ELECTRONICALLY SIGNED BY: ASUNCION HARO Jr., MD DATE: 05/15/25 0754 MDM MDM: Differential diagnosis: Respiratory distress, pneumonia, on BiPAP Rationale: Tests considered and ordered secondary to shared decision making include: labs, ECG and radiology Previous outside records reviewed: Old ER visits. Risk of complication and/or morbidity or mortality of patient management: None Medications-Per medication reconciliation Need for hospitalization: Patient does meet criteria for hospitalization. Need for emergency major/minor surgery: No There are no social concerns with this patient. Prescription drug management Prescriptions will include symptomatic care Patient's prior external medical records from other ER visits were reviewed by me as indicated. Prior testing and results from previous visits were reviewed. Prior tests were taken into account with medical decision making and resource utilization, independent historian/historians were used to obtain complete medical history. I independently interpreted the test that were performed, results were reviewed by me and considered findings on radiology if ordered. Medical management and examination interpretation discussions were had by me with other qualified healthcare professionals as indicated for the patient's care. Patient will be admitted under the care of [facility] for ongoing management. ED Course Orders Procedure Category Date Status Time Cbc With Differential LAB 05/15/25 Complete 13:51 Chest 1vw RAD 05/15/25 Resulted 13:51 12 Lead Ekg Tracing- EKG 05/15/25 Complete Technical 13:51 Magnesium LAB 05/15/25 Complete 13:51 Troponin I High LAB 05/15/25 Complete Sensitivity 13:51 Urinalysis Profile LAB 05/15/25 Complete 13:51 Basic Metabolic Panel LAB 05/15/25 Complete 13:51 B-Type Natriuretic LAB 05/15/25 Complete Peptide 13:51 Arterial Blood Gas + RT 05/15/25 Transmitted 13:52 *Nursing CPOE 05/15/25 Transmitted Communication: 13:56 Arterial Blood Gas LAB 05/15/25 Complete Arterial + 13:57 Manual Differential LAB 05/15/25 Complete 14:10 Bipap Settings RT 05/15/25 Transmitted 14:05 Culture Urine TIMOTHY 05/15/25 Logged 15:42 Vital Signs Date Time Temp Pulse Resp B/P (MAP) Pulse Ox O2 Delivery O2 Flow Rate FiO2 05/15/25 14:05 112 37 100 05/15/25 13:46 97.7 100 20 142/85 95 Nonrebreathing Mask 10.0 Critical Care Note Comments Critical Care Procedure Note Authorized and Performed by: me Total critical care time: Approximately 36 minutes Due to a high probability of clinically significant, life threatening deterioration, the patient required my highest level of preparedness to intervene emergently and I personally spent this critical care time directly and personally managing the patient. This critical care time included obtaining a history; examining the patient; pulse oximetry; ordering and review of studies; arranging urgent treatment with development of a management plan; evaluation of patient's response to treatment; frequent reassessment; and, discussions with other providers. This critical care time was performed to assess and manage the high probability of imminent, life-threatening deterioration that could result in multi-organ failure. It was exclusive of separately billable procedures and treating other patients and teaching time. Please see MDM section and the rest of the note for further information on patient assessment and treatment. DX & DISP Disposition: Inpatient Decision to Admit Time: 15:47 Departure Impression: Primary Impression: Pneumonia of both lungs Additional Impressions: Respiratory distress, BiPAP (biphasic positive airway pressure) dependence Condition: Stable Referrals: MADELYN GRADY MD (PCP) NISHA AGUILAR MD May 15, 2025 15:42
[2025-05-15] MEDS: 0.9%NACL 1000ML 1,000 ML IV SCH (16:26)
[2025-05-15] MEDS: DOXYCYCLINE 100MG+NS 250ML 250 ML IV SCH (16:26)
--- NOTE | 2025-05-15 16:53 | HP ---
[facility] HISTORY & PHYSICAL Date Patient Seen: May 15, 2025 Time of Visit: 1946 Supervising Physician: [ Dr. Geraldo Garcia Primary Care Physician: [Dr. Luis Heaton ] Outpatient Specialists: [Dr. Burnett-oncology Inpatient Consults: Hospice-Dr. Osei ] PROBLEM LIST: Acute hypoxic resp failure requiring BIPAP-POA Community-acquired pneumonia, bilateral-POA Severe ARDS: PF ratio of 73.9 on entry-POA Sepsis 2/2 CAP-POA Fluid overload-POA Bilateral pleural effusion-POA NATI-POA Left lower extremity wound-POA Leukocytosis-POA Hypocalcemia-POA Elevated D-dimer-POA Hospice consult-POA Medical debility and frailty-POA DNR-POA Primary HTN Liver CA on chemotherapy (pending 4 more treatments) HX of bladder CA s/p bladder resection with urostomy creation BLE DVT with IVC filter Afib-was on DOAC Neuropathy AAA PLAN: -Initially planned for ICU admission as he said he wants to be full code. However, after an hour patient decided to consult hospice and stated wanting to be DNR. Will downgrade to PCCU -Titrate oxygen to keep sats >92%; BIPAP setting -Solumedrol treatment -Continue IV antibiotic coverage with Cefepime and Linezolid in the setting of immunocompromised state -Atrovent neb TX q6h -Manage cough PRN -Will obtain venous doppler to r/o DVT and VQ scan to rule-out P.E., if positive, will need to get clearance from oncology for therapeutic anticoagulation -Once hospice plan is finalized, will stop therapeutic treatments and activate supportive care -Multimodal pain management -Will give IV Lasix HPI: [Patient is unable to engage with the HPI interview due to being fatigued and on BIPAP. Daughter at bedside and gave residual history and information. Per ED notes: "Patient is a an 84-year-old gentleman coming in in respiratory distress. Per EMS patient has been satting in the 80s was placed on 4 L of oxygen. Patient has been having a cough and congestion for a couple of days. Patient has been history of atrial fibrillation." According to the daughter, patient became lethargic, weak, observed shallow breathing, dyspneic, wheezy, anorexic and was coughing. Saturation dropped in the 80's and patient's baseline was in room air. Significant findings in ED was concerning for sepsis 2/2 CAP and was started on IV Cefepime and Doxycycline. ARDS was addressed and was started on NRB to BIPAP and given IV Solumedrol. At the time of my assessment, improvement on ABG report was noted so from FiO2 of 80 to 60% R.T has dropped it to 50%. Lung sounds have positive crackles bilaterally. Urostomy and right mediport in situ. Left leg wound has dressing CDI, BLE has 3+ pitting edema. Goals of care were discussed with the patient and daughter. ] PAST MEDICAL HX: see above PAST SURGICAL HX: noncontributory SOCIAL HISTORY: No tobacco, ETOH, or illicit drug use Coded Allergies: No Known Drug Allergies (Unverified Allergy, Unknown, 07/14/23) REVIEW OF SYSTEMS: Unable to perform 12 point ROS due to patient being fatigued. Daughter at bedside and gave residual history and information. PHYSICAL EXAM: GENERAL: alert, weak, awake oriented x 3 HEENT: EOMI, Sclera non icteric, dry mucosa NECK: Supple, no JVD, trachea midline LUNGS: Diffused crackles bilaterally. No wheezes HEART: Regular rate and rhythm. Normal S1 and S2, without murmurs ABD: Abdomen soft, nontender. Bowel sounds present EXT: No clubbing cyanosis, 3+ pitting edema on BLE, LLE wound covered with dressing. Right chest mediport NEURO: Alert and oriented to person, follows commands Vital Signs (last 8hr) Date Time Temp Pulse Resp B/P (MAP) Pulse Ox O2 Delivery O2 Flow Rate FiO2 05/15/25 15:46 88 18 148/76 100 Bi-PAP+ 15 50 05/15/25 14:05 112 37 100 05/15/25 13:46 97.7 100 20 142/85 95 Nonrebreathing Mask 10.0 LABS: Hematology Labs: Test 05/15/25 14:10 Range/Units White Blood Count 14.6 H 4.8-10.8 K/uL Red Blood Count 3.25 L 4.50-6.20 MIL/uL Hemoglobin 10.5 L 14.0-18.0 g/dL Hematocrit 33.4 L 42-54 % Mean Corpuscular Volume 102.8 H 79-99 fL Mean Corpuscular Hemoglobin 32.3 27.0-33.0 pg Mean Corpuscular Hemoglobin Concent 31.4 L 32.0-36.0 g/dL Red Cell Distribution Width 20.8 H 11.0-15.5 % Platelet Count 90 L 130-400 K/uL Mean Platelet Volume 11.1 H 7.5-10.5 fL Immature Granulocyte % (Auto) 7.0 H 0-1 % Neutrophils (%) (Auto) 75.8 40.0-77.0 % Lymphocytes (%) (Auto) 3.2 L 21.0-51.0 % Monocytes (%) (Auto) 13.5 H 3.0-13.0 % Eosinophils (%) (Auto) 0.0 0.0-8.0 % Basophils (%) (Auto) 0.5 0.0-5.0 % Neutrophils # (Auto) 11.1 H 1.8-7.7 K/uL Lymphocytes # (Auto) 0.5 L 1.0-4.8 K/uL Monocytes # (Auto) 2.0 H 0.1-1.0 K/uL Eosinophils # (Auto) 0.00 0.00-0.70 K/uL Basophils # (Auto) 0.07 0.00-0.20 K/uL Absolute Immature Granulocyte (auto 1.02 H 0-1 K/uL Segmented Neutrophils % 85 H 40-70 % Band Neutrophils % 7 H 0-2 % Lymphocytes % (Manual) 5 L 22-44 % Monocytes % (Manual) 3 2-9 % Nucleated Red Blood Cells 0.6 H 0.0-0.19 % Differential Comment MANUAL DIFFERENTIAL White Cell Morphology Comment CONSISTENT W/DIFF Platelet Morphology Comment DECREASED Red Blood Cell Morphology See comments Chemistry Labs: Test 05/15/25 14:10 Range/Units Sodium Level 145 136-145 mmol/L Potassium Level 4.2 3.5-5.1 mmol/L Chloride Level 109 101-111 mmol/L Carbon Dioxide Level 27 21-32 mmol/L Blood Urea Nitrogen 32 H 7-18 mg/dL Creatinine 1.6 H 0.5-1.3 mg/dL Glomerular Filtration Rate Calc 42 >90 mL/min Random Glucose 110 H 70-105 mg/dL Total Calcium 7.8 L 8.5-10.1 mg/dL Magnesium Level 2.00 1.80-2.40 mg/dL Troponin I High Sensitivity 41 4-75 ng/L B-Type Natriuretic Peptide 81 0-100 pg/mL DIAGNOSTICS / RADIOLOGY RESULTS: [ ] PLAN NEURO: Minimize central acting medications as possible. Fall Precautions. Well lighted room through the day and minimize interruptions through the night to prevent acute delirium. PULMONARY: Supplemental 02 as needed Titrate Fio2 to keep Spo2 > or = 90% DuoNebs and CPT as needed IS hourly while awake for pulmonary hygiene Out of bed to chair as tolerated Vent/BIPAP Settings: 14/6 FiO2: 50% rate 12 CARDIOVASCULAR: Follow hemodynamics. Titrate vasopressor to keep MAP >65 or systolic blood pressure >95mmHg DRIPS: [ ] LINES: [Right chest mediport ] GI & NUTRITION: Continue nutritional support Aspirations precautions Prokinetic agents and laxatives as needed KIDNEYS & ELECTROLYTES: Strict monitoring of intake and output Daily weights Avoid nephrotoxic agents Monitor electrolytes and replace as needed Goal urine output of 30mL/hr or 0.5mL/kg/hr Urine output: [ ] Fluid Balance: [ ] ENDOCRINE: Maintain blood glucose between 100-180 at all times. Insulin sliding scale for blood glucose management INFECTIOUS DISEASE: Trend temperature. Sousa-culture if febrile. Micro: [ ] Antibiotics: [Cefepime and Zyvox ] HEMATOLOGY & COAGULATION: Monitor H&H. Keep Hgb > 7 Transfuse 1 unit of PRBC for Hgb < 7 Transfuse 1 pack of platelets of platelets < 20, 000 Watch for any signs and symptoms of bleeding SKIN: Pressure ulcer prevention per facility protocol Rehab: PT/OT Prophylaxis: GI: [Protonix ] DVT: [SCD ] Code Status: Full Resuscitation Disposition: [PCCU ] Other: Total patient care time: 60 minutes PEG FORREST May 15, 2025 16:53
[2025-05-15 17:14] LABS: INR 1.14 (0.85-1.15)
[2025-05-15 17:50] LABS: COVID19 (SARS ANTIGEN RAPID) PRESUMPTIVE NEGATIVE (NEGATIVE)
[2025-05-15 17:55] LABS: INFLUENZA TYPE A NEGATIVE FOR TYPE A (NEGATIVE); INFLUENZA TYPE B NEGATIVE FOR TYPE B (NEGATIVE)
[2025-05-15] MEDS: SODIUM CHLORIDE 3% FOR INHALATION 4 ML/AMP VIAL.NEB IH ONE ×2 (19:26→23:46)
[2025-05-15 19:56] LABS: ABG BASE EXCESS 0.6 mmol/L (-2.0-3.0); ABG HCO3 23.1 mmol/L (21.0-28.0); ABG OXYGEN SATURATION 98.6 % (94.0-98.0); ABG PCO2 32 mmHg (35-48); ABG PH 7.483 (7.350-7.450); DEVICE COMMENT RB RN PAUL; PO2, ARTERIAL BG 117.8 mmHg (83.0-108.0); TEMPERATURE, CELSIUS BG 37.0 CELSIUS (35.5-37.0); VENT MODE, BG BIPAP 14-6 (ROOM AIR)
--- NOTE | 2025-05-15 22:07 | HMCIMG ---
EXAM: US for Deep Venous Thrombosis, bilateral Lower Extremity. CLINICAL HISTORY: Deep venous thrombosis. TECHNIQUE: Real-time ultrasound scan of the veins of the bilateral lower extremity with color Doppler flow, spectral waveform analysis and compression. COMPARISON: None provided. FINDINGS: DEEP VEINS: No compressibility or color flow is seen in the left proximal, mid, and distal superficial femoral vein, popliteal vein, or posterior tibial vein, consistent with deep venous thrombosis. The right common femoral, superficial femoral, and popliteal veins are echolucent, compressible, and show normal color Doppler flow throughout. The visualized right calf veins appear patent. SOFT TISSUES: No popliteal fossa cyst or other abnormalities. IMPRESSION: Positive deep venous thrombosis in the left lower extremity, involving the proximal, mid, and distal superficial femoral vein, popliteal vein, and posterior tibial vein. No evidence of thrombosis in the right lower extremity veins. /[place]
[2025-05-15] MEDS: FAMOTIDINE 20MG VIAL IV SCH (22:12)
[2025-05-15] MEDS: Solu-medROL 40MG VIAL IVP SCH (22:12)
--- NOTE | 2025-05-15 22:55 | NUR ---
OMKAR MANJARREZ-MEDICAL POWER OF SM[employer]ER CELL: HOME: THANH GREENGROVE-DAUGHTER
--- NOTE | 2025-05-15 23:07 | NUR ---
PT AND FAMILY REQUESTED FOR HOSPICE CONSULT. PEG DUBOIS AWARE, SPOKE WITH FAMILY TO CONFIRM. PEG DUBOIS SPOKE WITH [facility] FOR THE CONSULT. PT VOICED WANTING TO BE CHANGED TO DNR. PT UNABLE TO SIGN BUT SON, OMKAR MANJARREZ, IS MPOA AND AGREED TO SIGN DNR PAPERWORK OVER THE PHONE. TWO RN CONSENT OBTAINED OVER THE PHONE AT THIS TIME.
[2025-05-16] VITALS (10 sets, daily range): BP systolic 135–151; BP diastolic 81–97; PULSE 80–92; RESP 15–22; TEMP 98.3–98.5; O2SAT 93–97
[2025-05-16] MEDS ORDERED: RENAL DOSE IV STA (00:32)
[2025-05-16] MEDS ORDERED: PHARMACY COMMUNICATION MISC STA (00:32)
[2025-05-16] MEDS: LINEZOLID 600 MG/ISO-OSM 300 ML IV SCH (02:33)
[2025-05-16] MEDS: SODIUM CHLORIDE 3% FOR INHALATION 4 ML/AMP VIAL.NEB IH ONE (06:44)
[2025-05-16 07:25] LABS: IMMATURE GRANULOCYTE ABSOLUTE 0.47 K/uL (0-1); NUCLEATED RED BLOOD CELLS 0.4 % (0.0-0.19); PLATELET COUNT (AUTO) 75 K/uL (130-400); RED BLOOD CELL COUNT(AUTO) 3.49 MIL/uL (4.50-6.20); RED CELL DISTRIBUTION WIDTH 20.2 % (11.0-15.5); WHITE BLOOD COUNT (AUTO) 7.9 K/uL (4.8-10.8)
[2025-05-16 07:37] LABS: CREATININE 1.6 mg/dL (0.5-1.3); GLOMERULAR FILTR. RATE CALC 42.0 mL/min (>90); GLUCOSE,RANDOM 141.0 mg/dL (70-105); SODIUM SERUM 143.0 mmol/L (136-145); UREA NITROGEN, BLOOD 35.0 mg/dL (7-18)
--- NOTE | 2025-05-16 08:11 | NUR ---
RAD NUCLEAR MEDICINE PATIENT IN AND OUT OF CONSCIOUSNESS PER NURSE SANTILLAN AT 0807 HOURS. PATIENT NEEDS TO BE AWARE AT ALL TIMES DURING VQ SCAN. SCAN PLACED ON HOLD UNTIL FURTHER NOTICE.
--- NOTE | 2025-05-16 08:39 | NUR ---
HOSPICE Sw spoke to son Shawn Dodge [phone]. Son made aware of hospice order. Per son, he understood that pt would be DNR, but we would continue to treat, nothing was said to him about hospice. Son states he would need to discuss with sister before making any decision. Sister just left hospital to get sleep so he does not know when he will get back to me.
--- NOTE | 2025-05-16 09:31 | NUR ---
FAMILY f/u Sw recd call from son Shawn. Son states he will not make decision until he speaks to an MD regarding pt's current condition and reason for hospice order. Nurse العراقي updated on conversations with son
[2025-05-16] MEDS: DOXYCYCLINE 100MG+NS 250ML 250 ML IV SCH (09:51)
--- NOTE | 2025-05-16 13:30 | PN ---
[facility] PROGRESS NOTE Date Patient Seen: May 16, 2025 Time of Visit: 13:29 Supervising Physician: Dr. Garcia Primary Care Physician: [Dr. Luis Heaton ] Outpatient Specialists: [Dr. Burnett-oncology Inpatient Consults: Hospice-Dr. Osei ] PROBLEM LIST: Acute hypoxic resp failure requiring BIPAP-POA Community-acquired pneumonia, bilateral-POA Severe ARDS: PF ratio of 73.9 on entry-POA Sepsis 2/2 CAP-POA Fluid overload-POA Bilateral pleural effusion-POA NATI-POA Left lower extremity wound-POA Leukocytosis-POA Hypocalcemia-POA Elevated D-dimer-POA Hospice consult-POA Medical debility and frailty-POA DNR-POA Primary HTN Liver CA on chemotherapy (pending 4 more treatments) HX of bladder CA s/p bladder resection with urostomy creation BLE DVT with IVC filter Afib-was on DOAC Neuropathy AAA PLAN: -Initially planned for ICU admission as he said he wants to be full code. However, after an hour patient decided to consult hospice and stated wanting to be DNR. Will downgrade to PCCU -Titrate oxygen to keep sats >92%; BIPAP setting -Solumedrol treatment -Continue IV antibiotic coverage with Cefepime and Linezolid in the setting of immunocompromised state -Atrovent neb TX q6h -Manage cough PRN -Will obtain venous doppler to r/o DVT and VQ scan to rule-out P.E., if positive, will need to get clearance from oncology for therapeutic anticoagulation -Once hospice plan is finalized, will stop therapeutic treatments and activate supportive care -Multimodal pain management -Will give IV Lasix INTERVAL HISTORY: Patient is seen at bedside in the ED, patient is awake and alert, however show signs of confusion today. Per chart review patient had discussed wanting to pr oceed with hospice evaluations on this admission. Per nursing staff in the ED family was contacted and are in disagreement with this decision. It is my assessment that the patient is not oriented enough at this time to be reliable decision maker regarding hospice. Advised that son is POA, pending family at bedside for discussion regarding hospice. For the time being patient is currently being treated with cefepime and doxycycline, given the patient's acute delirium we will exchange cefepime was for ceftriaxone. Patient's white count on admission is 7.9, hemoglobin of 11.3, and creatinine of 1.6. Patient with IVC filter from previous admission, currently being treated for left lower extremity DVT. Patient on 2 L nasal cannula at the time of my visit. No acute events noted, attempt to to call son regarding decisions, no answer on two occasions. We will continue with current medical treatment plan until conversation REVIEW OF SYSTEMS: Unable to perform 12 point ROS due to patient being fatigued. Daughter at bedside and gave residual history and information. PHYSICAL EXAM: GENERAL: alert, weak, awake oriented x 3 HEENT: EOMI, Sclera non icteric, dry mucosa NECK: Supple, no JVD, trachea midline LUNGS: Diffused crackles bilaterally. No wheezes HEART: Regular rate and rhythm. Normal S1 and S2, without murmurs ABD: Abdomen soft, nontender. Bowel sounds present EXT: No clubbing cyanosis, 3+ pitting edema on BLE, LLE wound covered with dressing. Right chest mediport NEURO: Alert and oriented to person, follows commands Vital Signs (last 8hr) Date Time Temp Pulse Resp B/P (MAP) Pulse Ox O2 Delivery O2 Flow Rate FiO2 05/16/25 12:00 98.2 80 15 151/97 96 Nasal Cannula 2.0 05/16/25 11:28 81 20 05/16/25 11:27 81 21 N/Cannula Low lpm 2.0 28 05/16/25 06:46 83 21 05/16/25 06:44 83 21 N/Cannula Low lpm 2.0 28 05/16/25 05:35 80 21 141/84 100 Nasal Cannula* 2 N/A Bi-PAP+ LABS: Hematology Labs: Test 05/16/25 07:02 05/15/25 14:15 05/15/25 14:10 Range/Units White Blood Count 7.9 # 4.8-10.8 K/uL Red Blood Count 3.49 L 4.50-6.20 MIL/uL Hemoglobin 11.3 L 14.0-18.0 g/dL Hematocrit 36.1 L 42-54 % Mean Corpuscular Volume 103.4 H 79-99 fL Mean Corpuscular Hemoglobin 32.4 27.0-33.0 pg Mean Corpuscular Hemoglobin Concent 31.3 L 32.0-36.0 g/dL Red Cell Distribution Width 20.2 H 11.0-15.5 % Platelet Count 75 L 130-400 K/uL Mean Platelet Volume 11.3 H 7.5-10.5 fL Immature Granulocyte % (Auto) 6.0 H 0-1 % Neutrophils (%) (Auto) 87.0 H 40.0-77.0 % Lymphocytes (%) (Auto) 2.5 L 21.0-51.0 % Monocytes (%) (Auto) 3.9 3.0-13.0 % Eosinophils (%) (Auto) 0.0 0.0-8.0 % Basophils (%) (Auto) 0.6 0.0-5.0 % Neutrophils # (Auto) 6.9 1.8-7.7 K/uL Lymphocytes # (Auto) 0.2 L 1.0-4.8 K/uL Monocytes # (Auto) 0.3 0.1-1.0 K/uL Eosinophils # (Auto) 0.00 0.00-0.70 K/uL Basophils # (Auto) 0.05 0.00-0.20 K/uL Absolute Immature Granulocyte (auto 0.47 0-1 K/uL Nucleated Red Blood Cells 0.4 H 0.0-0.19 % Erythrocyte Sedimentation Rate 25 H 0-20 MM/HR Segmented Neutrophils % 85 H 40-70 % Band Neutrophils % 7 H 0-2 % Lymphocytes % (Manual) 5 L 22-44 % Monocytes % (Manual) 3 2-9 % Differential Comment MANUAL DIFFERENTIAL White Cell Morphology Comment CONSISTENT W/DIFF Platelet Morphology Comment DECREASED Red Blood Cell Morphology See comments Chemistry Labs: Test 05/16/25 11:58 05/16/25 07:02 05/15/25 14:15 05/15/25 14:10 Range/Units Whole Blood Glucose 119 H 70-110 MG/DL Sodium Level 143 136-145 mmol/L Potassium Level 4.4 3.5-5.1 mmol/L Chloride Level 109 101-111 mmol/L Carbon Dioxide Level 24 21-32 mmol/L Blood Urea Nitrogen 35 H 7-18 mg/dL Creatinine 1.6 H 0.5-1.3 mg/dL Glomerular Filtration Rate Calc 42 >90 mL/min Random Glucose 141 H 70-105 mg/dL Total Calcium 8.2 L 8.5-10.1 mg/dL C-Reactive Protein, Quantitative 116.90 H 0.5-3.0 mg/L Lipase 19 16-77 U/L Procalcitonin 0.36 0.05-0.5 ng/mL Magnesium Level 2.00 1.80-2.40 mg/dL Troponin I High Sensitivity 41 4-75 ng/L B-Type Natriuretic Peptide 81 0-100 pg/mL Coagulation Labs: Test 05/15/25 14:15 Range/Units Prothrombin Time 11.9 H 9.6-11.6 SEC Prothromb Time International Ratio 1.14 0.85-1.15 Activated Partial Thromboplast Time 32.7 26.3-35.5 SEC D-Dimer Quantitative (PE/DVT) 4933 *H 0-500 ng/mL DIAGNOSTICS / RADIOLOGY RESULTS: [ ] PLAN NEURO: Minimize central acting medications as possible. Maintain fall precautions, adequate lighting during the day PULMONARY: Supplemental 02 as needed. Maintain aspiration precautions at all times CARDIOVASCULAR: Follow hemodynamics. Vital signs per facility protocol GI & NUTRITION: Continue with nutritional support. Continue stool softeners and laxatives as needed. KIDNEYS & ELECTROLYTES: Strict monitoring of intake, output and overall fluid balance. Avoid nephrotoxic medications to the extent possible. Medications to be dosed according to renal function. Monitor electrolytes and replace as needed ENDOCRINE: Maintain blood glucose between 100-180 at all times. Hypoglycemia protocol in place INFECTIOUS DISEASE: Trend temperature, WBC and procalcitonin level Follow cultures, deescalate antibiotics as soon as possible. Panculture if new onset fever ONCOLOGY/HEMATOLOGY/COAGULATION: Monitor for s/s of bleeding Monitor hemoglobin, coagulation studies as needed SKIN: Pressure ulcer prevention per facility protocol Specialty mattress ORTHO/REHAB: Continue PT/OT Prophylaxis: Continue GI and DVT prophylaxis Code Status: Full Resuscitation Disposition: TBD Other: Total patient care time exceeds 35 minutes excluding all procedures. YONATHAN SHAVER May 16, 2025 13:30
[2025-05-16] MEDS ORDERED: ACET-66 PO (18:22)
[2025-05-17] VITALS (16 sets, daily range): BP systolic 124–172; BP diastolic 65–97; PULSE 72–97; RESP 16–22; TEMP 97.6–98.7; O2SAT 90–98
--- NOTE | 2025-05-17 01:10 | NUR ---
REPORT GIVEN TO MARYBETH VITAL
--- NOTE | 2025-05-17 01:30 | NUR ---
PATIENT ALERT TO NAME AND . PATIENT FORGETFUL. ARRIVED FROM ER VIA STRETCHER. MULTIPLE WOUNDS PICTURED AND DOCUMENTED. CURRENTLY USING 3L OF 02 VIA NC, SATS >92%. SOB WITH EXERTION. PATIENT ORIENTED TO ROOM. BED LOW, CALL LIGHT IN HAND.
[2025-05-17 05:25] LABS: IMMATURE GRANULOCYTE ABSOLUTE 0.83 K/uL (0-1); NUCLEATED RED BLOOD CELLS 0.2 % (0.0-0.19); PLATELET COUNT (AUTO) 105 K/uL (130-400); RED BLOOD CELL COUNT(AUTO) 3.37 MIL/uL (4.50-6.20); RED CELL DISTRIBUTION WIDTH 20.2 % (11.0-15.5); WHITE BLOOD COUNT (AUTO) 16.5 K/uL (4.8-10.8)
[2025-05-17 05:43] LABS: CREATININE 1.7 mg/dL (0.5-1.3); GLOMERULAR FILTR. RATE CALC 39.0 mL/min (>90); GLUCOSE,RANDOM 115.0 mg/dL (70-105); SODIUM SERUM 143.0 mmol/L (136-145); UREA NITROGEN, BLOOD 42.0 mg/dL (7-18)
[2025-05-17] MEDS ORDERED: PHARMACY COMMUNICATION 1 EACH EACH MISC SCH (09:00)
--- NOTE | 2025-05-17 10:44 | PN ---
[facility] PROGRESS NOTE Date Patient Seen: May 17, 2025 Time of Visit: 10:44 Supervising Physician: [ ] Primary Care Physician: [Dr. Luis Heaton ] Outpatient Specialists: [Dr. Burnett-oncology Inpatient Consults: Hospice-Dr. Osei ] PROBLEM LIST: Acute hypoxic resp failure requiring BIPAP-POA Community-acquired pneumonia, bilateral-POA Severe ARDS: PF ratio of 73.9 on entry-POA Acute cystitis - pos ENTEROCOCCUS FAECALIS Sepsis 2/2 CAP-POA Fluid overload-POA Bilateral pleural effusion-POA NATI-POA Left lower extremity wound-POA Leukocytosis-POA Hypocalcemia-POA Elevated D-dimer-POA Medical debility and frailty-POA DNR-POA Primary HTN Liver CA on chemotherapy (pending 4 more treatments) HX of bladder CA s/p bladder resection with urostomy creation BLE DVT with IVC filter Afib-was on DOAC Neuropathy AAA PLAN: Hospice eval Resume eliquis 5mg for 7 days, then 2.5 Lenthy Discussion with family, discussing Hospice services Follow CUltures - ABX urine - ENTEROCOCCUS FAECALIS: RT treatments Steriods tele INTERVAL HISTORY: Patient is seen at bedside in the ED, patient is awake and alert, however show signs of confusion today. Per chart review patient had discussed wanting to proceed with hospice evaluations on this admission. Per nursing staff in the ED family was contacted and are in disagreement with this decision. It is my assessment that the patient is not oriented enough at this time to be reliable decision maker regarding hospice. Advised that son is POA, pending family at bedside for discussion regarding hospice. For the time being patient is currently being treated with cefepime and doxycycline, given the patient's acute delirium we will exchange cefepime was for ceftriaxone. Patient's white count on admission is 7.9, hemoglobin of 11.3, and creatinine of 1.6. Patient with IVC filter from previous admission, currently being treated for left lower extremity DVT. Patient on 2 L nasal cannula at the time of my visit. No acute events noted, attempt to to call son regarding decisions, no answer on two occasions. We will continue with current medical treatment plan until conversation REVIEW OF SYSTEMS: Unable to perform 12 point ROS due to patient being fatigued. Daughter at bedside and gave residual history and information. PHYSICAL EXAM: GENERAL: alert, weak, awake oriented x 3 HEENT: EOMI, Sclera non icteric, dry mucosa NECK: Supple, no JVD, trachea midline LUNGS: Diffused crackles bilaterally. No wheezes HEART: Regular rate and rhythm. Normal S1 and S2, without murmurs ABD: Abdomen soft, nontender. Bowel sounds present EXT: No clubbing cyanosis, 3+ pitting edema on BLE, LLE wound covered with dressing. Right chest mediport NEURO: Alert and oriented to person, follows commands Vital Signs (last 8hr) Date Time Temp Pulse Resp B/P (MAP) Pulse Ox O2 Delivery O2 Flow Rate FiO2 05/17/25 07:15 97.9 97 20 124/67 99 Room Air 05/17/25 06:17 83 16 05/17/25 06:16 83 16 N/Cannula Low lpm 3.0 05/17/25 06:15 83 16 05/17/25 04:51 98.4 85 18 140/86 97 Nasal Cannula LABS: Hematology Labs: Test 05/17/25 05:12 05/15/25 14:15 05/15/25 14:10 Range/Units White Blood Count 16.5 #H 4.8-10.8 K/uL Red Blood Count 3.37 L 4.50-6.20 MIL/uL Hemoglobin 11.0 L 14.0-18.0 g/dL Hematocrit 33.5 L 42-54 % Mean Corpuscular Volume 99.4 H 79-99 fL Mean Corpuscular Hemoglobin 32.6 27.0-33.0 pg Mean Corpuscular Hemoglobin Concent 32.8 32.0-36.0 g/dL Red Cell Distribution Width 20.2 H 11.0-15.5 % Platelet Count 105 #L 130-400 K/uL Mean Platelet Volume 11.5 H 7.5-10.5 fL Immature Granulocyte % (Auto) 5.0 H 0-1 % Neutrophils (%) (Auto) 86.9 H 40.0-77.0 % Lymphocytes (%) (Auto) 1.6 L 21.0-51.0 % Monocytes (%) (Auto) 6.1 3.0-13.0 % Eosinophils (%) (Auto) 0.0 0.0-8.0 % Basophils (%) (Auto) 0.4 0.0-5.0 % Neutrophils # (Auto) 14.3 H 1.8-7.7 K/uL Lymphocytes # (Auto) 0.3 L 1.0-4.8 K/uL Monocytes # (Auto) 1.0 0.1-1.0 K/uL Eosinophils # (Auto) 0.00 0.00-0.70 K/uL Basophils # (Auto) 0.07 0.00-0.20 K/uL Absolute Immature Granulocyte (auto 0.83 0-1 K/uL Nucleated Red Blood Cells 0.2 H 0.0-0.19 % Erythrocyte Sedimentation Rate 25 H 0-20 MM/HR Segmented Neutrophils % 85 H 40-70 % Band Neutrophils % 7 H 0-2 % Lymphocytes % (Manual) 5 L 22-44 % Monocytes % (Manual) 3 2-9 % Differential Comment MANUAL DIFFERENTIAL White Cell Morphology Comment CONSISTENT W/DIFF Platelet Morphology Comment DECREASED Red Blood Cell Morphology See comments Chemistry Labs: Test 05/17/25 05:12 05/16/25 22:35 05/15/25 14:15 05/15/25 14:10 Range/Units Sodium Level 143 136-145 mmol/L Potassium Level 4.3 3.5-5.1 mmol/L Chloride Level 109 101-111 mmol/L Carbon Dioxide Level 21 21-32 mmol/L Blood Urea Nitrogen 42 H 7-18 mg/dL Creatinine 1.7 H 0.5-1.3 mg/dL Glomerular Filtration Rate Calc 39 >90 mL/min Random Glucose 115 H 70-105 mg/dL Total Calcium 8.3 L 8.5-10.1 mg/dL Whole Blood Glucose 111 H 70-110 MG/DL C-Reactive Protein, Quantitative 116.90 H 0.5-3.0 mg/L Lipase 19 16-77 U/L Procalcitonin 0.36 0.05-0.5 ng/mL Magnesium Level 2.00 1.80-2.40 mg/dL Troponin I High Sensitivity 41 4-75 ng/L B-Type Natriuretic Peptide 81 0-100 pg/mL Coagulation Labs: Test 05/15/25 14:15 Range/Units Prothrombin Time 11.9 H 9.6-11.6 SEC Prothromb Time International Ratio 1.14 0.85-1.15 Activated Partial Thromboplast Time 32.7 26.3-35.5 SEC D-Dimer Quantitative (PE/DVT) 4933 *H 0-500 ng/mL DIAGNOSTICS / RADIOLOGY RESULTS: [ ] PLAN NEURO: Minimize central acting medications as possible. Fall Precautions. Well lighted room through the day and minimize interruptions through the night to prevent acute delirium. PULMONARY: Supplemental 02 as needed Titrate Fio2 to keep Spo2 > or = 90% DuoNebs and CPT as needed IS hourly while awake for pulmonary hygiene Out of bed to chair as tolerated Vent/BIPAP Settings: 14/6 FiO2: 50% rate 12 CARDIOVASCULAR: Follow hemodynamics. Titrate vasopressor to keep MAP >65 or systolic blood pressure >95mmHg DRIPS: [ ] LINES: [Right chest mediport ] GI & NUTRITION: Continue nutritional support Aspirations precautions Prokinetic agents and laxatives as needed KIDNEYS & ELECTROLYTES: Strict monitoring of intake and output Daily weights Avoid nephrotoxic agents Monitor electrolytes and replace as needed Goal urine output of 30mL/hr or 0.5mL/kg/hr Urine output: [ ] Fluid Balance: [ ] ENDOCRINE: Maintain blood glucose between 100-180 at all times. Insulin sliding scale for blood glucose management INFECTIOUS DISEASE: Trend temperature. Sousa-culture if febrile. Micro: [ ] Antibiotics: [Cefepime and Zyvox ] HEMATOLOGY & COAGULATION: Monitor H&H. Keep Hgb > 7 Transfuse 1 unit of PRBC for Hgb < 7 Transfuse 1 pack of platelets of platelets < 20, 000 Watch for any signs and symptoms of bleeding SKIN: Pressure ulcer prevention per facility protocol Rehab: PT/OT Prophylaxis: GI: [Protonix ] DVT: [SCD ] Code Status: Full Resuscitation Disposition: [PCCU ] Other: Total patient care time: 60 minutes PEG BRODERICK May 17, 2025 10:44
--- NOTE | 2025-05-17 11:30 | NUR ---
Hospice Spoke to son regarding hospice consult, stated he was not ready to place his father under hospice. However, has agreed to keeping code status as DNR. Royce DUBOIS also spoke with son via telephone and stated son wishes to resume treatment.
--- NOTE | 2025-05-17 13:27 | NUR ---
JULIAN CARRILLO VIBRATING SCREED OPERATOR ASKED ABOUT HOSPICE. [facility] [employer] NOT HERE YET. READ NOTES ABOUT FAMILY WANTING PRIMARY MD TO TALK TO THEM ABOUT HOSPICE AND REASON WHY THEY ARE RECOMMENDING. PER LORENA WILL WAIT FOR PRIMARY TO TALK TO FAMILY BEFORE GOING IN TO TALK ABOUT [facility] [facility] [employer]. ALYSON TOWNSEND CM WHO IS IN CHARGE OF CASE KNOW OF CONVERSATION. Addendum: 05/17/25 at 1330 by MISHA DE LA VEGA RN CM Amended: Links added.
--- NOTE | 2025-05-17 13:46 | NUR ---
[facility] Consult: Patient assessed by wound healing team. See wound assessment. Assessment and recommendations provided to primary nurse. Education provided. Wound care done. Addendum: 05/18/25 at 1327 by ANNE-MARIE JANSEN RN RN/ Amended: Links added.
--- NOTE | 2025-05-17 15:10 | NUR ---
DCP: RETURN TO [facility] visited with pt's daughter Jenny [phone]. Daughter states pt was discharged to [facility] on 05/11. Daughter states pt was to get rehab there and he has no had any PT. Per daughter, p has npt gotten out of bed or walked in 3 weeks. Daughter states Family is not agreeable o hospice as recommended and pt will return [place]. Daughter ngoc pt is a recent and lives alone. She is currently been staying here to help him with standby assistance and bath set up. Pt was able to bath self, used walker with seat, shower chair hospital bed and bsc. Pt is seeing Dr Burnett for cancer treatments, PCP is Flor Heaton. CM to follow and assist as needed Addendum: 05/17/25 at 1521 by HASEEB RHODES Amended: Links added.
[2025-05-18] VITALS (12 sets, daily range): BP systolic 122–150; BP diastolic 67–102; PULSE 76–96; RESP 18–24; TEMP 97.2–98.1; O2SAT 90–96
[2025-05-18 04:27] LABS: IMMATURE GRANULOCYTE ABSOLUTE 0.53 K/uL (0-1); NUCLEATED RED BLOOD CELLS 0.0 % (0.0-0.19); PLATELET COUNT (AUTO) 91 K/uL (130-400); RED BLOOD CELL COUNT(AUTO) 3.48 MIL/uL (4.50-6.20); RED CELL DISTRIBUTION WIDTH 20.5 % (11.0-15.5); WHITE BLOOD COUNT (AUTO) 14.0 K/uL (4.8-10.8)
[2025-05-18 04:46] LABS: CREATININE 2.0 mg/dL (0.5-1.3); GLOMERULAR FILTR. RATE CALC 32.0 mL/min (>90); GLUCOSE,RANDOM 120.0 mg/dL (70-105); SODIUM SERUM 148.0 mmol/L (136-145); UREA NITROGEN, BLOOD 51.0 mg/dL (7-18)
--- NOTE | 2025-05-18 08:51 | HP ---
LOCATION: [facility]– [place]. HISTORY OF PRESENT ILLNESS: The patient was admitted over the weekend with acute hypoxic respiratory failure and pneumonia. He is doing much better. He does verbalize he just wants to . He is awake, alert, and has not been eating anything for days. Very well known to me. PHYSICAL EXAMINATION: GENERAL: Shows a pleasant man. VITAL SIGNS: Blood pressure 122/95, pulse 82, respiratory 20. HEENT: Benign. CHEST: Shows decreased breath sounds bilaterally. HEART: Regular rate and rhythm. ABDOMEN: Soft. EXTREMITIES: No edema. NEUROLOGIC: Awake, alert. LABORATORY DATA: Labs reviewed. CBC: 14, 11, platelets 91,000. IMPRESSION: * Acute hypoxic respiratory failure. * Community-acquired pneumonia. * ____ sepsis ____ fluid overload. * Stage 4 colon cancer metastatic to liver. * Bladder cancer, in remission. * DVT, status post IVC filter. * Hypertension. * GI bleeding. * AFib. PLAN: Continue medical management. He is always wanted to be DNR and that has been instituted. Continue antibiotics. Continue supportive care. We have discussed about nutritional support. He definitely does not want a feeding tube. TID: [id number] RECEIPT: [id number]
[2025-05-18] MEDS: BACITRACIN 28.4 GM OINT TP SCH (09:00)
[2025-05-18] MEDS: BALSAM PERU/CASTOR OIL 60 GM TUBE TP SCH (09:00)
--- NOTE | 2025-05-18 11:20 | PN ---
[facility] PROGRESS NOTE Date Patient Seen: May 18, 2025 Time of Visit: 11:04 Supervising Physician: [ ] Primary Care Physician: [Dr. Luis Heaton ] Outpatient Specialists: [Dr. Burnett-oncology Inpatient Consults: Hospice-Dr. Osei ] PROBLEM LIST: Acute hypoxic resp failure CAP Sepsis Acute cystitis - pos ENTEROCOCCUS FAECALIS Sepsis 2/2 CAP-POA Fluid overload-POA Bilateral pleural effusion-POA NATI-POA Left lower extremity wound-POA Hypocalcemia-POA Medical debility and frailty-POA Primary HTN Liver CA on chemotherapy (pending 4 more treatments) HX of bladder CA s/p bladder resection with urostomy creation BLE DVT with IVC filter Afib-was on DOAC Neuropathy AAA DNR status INTERVAL HISTORY: patient seen and examined. all labs reviewed. Nursing reports acute intermittent confusion. patient afebrile, reporting pain controlled. - poor appetite - AOx2 - refusing meds - intermittent confusing - good sats on RA - VSS - DNR - Daughter refusing NGT for nutrition - family refusing hospice - wbc 14 - rocephine, doxy, - renal function declining Plan: - AM labs - CXR now and AM - Continue abx - continue family discussion of goals of care - possible downgrade to M/S with tele REVIEW OF SYSTEMS: Unable to perform 12 point ROS due to patient being fatigued. Daughter at bedside and gave residual history and information. PHYSICAL EXAM: GENERAL: alert, weak, awake oriented x 2 HEENT: EOMI, Sclera non icteric, dry mucosa NECK: Supple, no JVD, trachea midline LUNGS: Diffused crackles bilaterally. No wheezes HEART: Regular rate and rhythm. Normal S1 and S2, without murmurs ABD: Abdomen soft, nontender. Bowel sounds present EXT: No clubbing cyanosis, 3+ pitting edema on BLE, LLE wound covered with dressing. Right chest mediport NEURO: Alert and oriented to person, follows commands Vital Signs (last 8hr) Date Time Temp Pulse Resp B/P (MAP) Pulse Ox O2 Delivery O2 Flow Rate FiO2 05/18/25 07:00 96 Nasal Cannula* 3 32 05/18/25 06:20 89 18 N/Cannula Low lpm 3.0 32 LABS: Hematology Labs: Test 05/18/25 04:15 Range/Units White Blood Count 14.0 H 4.8-10.8 K/uL Red Blood Count 3.48 L 4.50-6.20 MIL/uL Hemoglobin 11.0 L 14.0-18.0 g/dL Hematocrit 35.4 L 42-54 % Mean Corpuscular Volume 101.7 H 79-99 fL Mean Corpuscular Hemoglobin 31.6 27.0-33.0 pg Mean Corpuscular Hemoglobin Concent 31.1 L 32.0-36.0 g/dL Red Cell Distribution Width 20.5 H 11.0-15.5 % Platelet Count 91 L 130-400 K/uL Mean Platelet Volume 10.9 H 7.5-10.5 fL Immature Granulocyte % (Auto) 3.8 H 0-1 % Neutrophils (%) (Auto) 90.2 H 40.0-77.0 % Lymphocytes (%) (Auto) 1.6 L 21.0-51.0 % Monocytes (%) (Auto) 4.1 3.0-13.0 % Eosinophils (%) (Auto) 0.0 0.0-8.0 % Basophils (%) (Auto) 0.3 0.0-5.0 % Neutrophils # (Auto) 12.6 H 1.8-7.7 K/uL Lymphocytes # (Auto) 0.2 L 1.0-4.8 K/uL Monocytes # (Auto) 0.6 0.1-1.0 K/uL Eosinophils # (Auto) 0.00 0.00-0.70 K/uL Basophils # (Auto) 0.04 0.00-0.20 K/uL Absolute Immature Granulocyte (auto 0.53 0-1 K/uL Nucleated Red Blood Cells 0.0 0.0-0.19 % Chemistry Labs: Test 05/18/25 05:34 05/18/25 04:15 Range/Units Whole Blood Glucose 109 70-110 MG/DL Sodium Level 148 H 136-145 mmol/L Potassium Level 4.7 3.5-5.1 mmol/L Chloride Level 112 H 101-111 mmol/L Carbon Dioxide Level 23 21-32 mmol/L Blood Urea Nitrogen 51 H 7-18 mg/dL Creatinine 2.0 H 0.5-1.3 mg/dL Glomerular Filtration Rate Calc 32 >90 mL/min Random Glucose 120 H 70-105 mg/dL Total Calcium 8.5 8.5-10.1 mg/dL DIAGNOSTICS / RADIOLOGY RESULTS: [ ] PLAN NEURO: Minimize central acting medications as possible. Maintain fall precautions, adequate lighting during the day PULMONARY: Supplemental 02 as needed. Maintain aspiration precautions at all times CARDIOVASCULAR: Follow hemodynamics. Vital signs per facility protocol GI & NUTRITION: Continue with nutritional support. Continue stool softeners and laxatives as needed. KIDNEYS & ELECTROLYTES: Strict monitoring of intake, output and overall fluid balance. Avoid nephrotoxic medications to the extent possible. Medications to be dosed according to renal function. Monitor electrolytes and replace as needed ENDOCRINE: Maintain blood glucose between 100-180 at all times. Hypoglycemia protocol in place INFECTIOUS DISEASE: Trend temperature, WBC and procalcitonin level Follow cultures, deescalate antibiotics as soon as possible. Panculture if new onset fever ONCOLOGY/HEMATOLOGY/COAGULATION: Monitor for s/s of bleeding Monitor hemoglobin, coagulation studies as needed SKIN: Pressure ulcer prevention per facility protocol Specialty mattress ORTHO/REHAB: Continue PT/OT Prophylaxis: Continue GI and DVT prophylaxis Code Status: Full Resuscitation Disposition: TBD Other: Total patient care time exceeds 35 minutes excluding all procedures. PEG BRODERICK May 18, 2025 11:20
--- NOTE | 2025-05-18 13:15 | NUR ---
CM note Spoke to Daughter at bedside discussed goals of care and discharge plan. Verbalized pt has not really had an appetite since admission and would like for her Dad to go to rehab. Educated daughter nutrition is important to help wound healing and help to improve pt status. Stated she would discuss with her Brother poor appetite status and will follow up with MD.
--- NOTE | 2025-05-18 15:10 | NUR ---
RECEIVED VIA BED TO ROOM 308. IN NO ACUTE DISTRESS. ALERT TO PERSON ONLY. DAUGHTER AT BEDSIDE
--- NOTE | 2025-05-18 21:46 | CONS ---
GASTROENTEROLOGY CONSULTATION NOTE Date of Consultation: May 18, 2025 Time of Consultation: 21:45 History of Present Illness: This is an 84-year-old male who is known to services with past medical history of colon cancer with metastasis. Patient was in ICU initially on BiPAP. He has been downgraded and we were consulted for PEG tube placement. He had EGD in January with esophageal candidiasis. Review of Systems: CONSTITUTIONAL: No malaise or change in sensation of wellbeing. ENMT: No rhinorrhea, otorrhea, sinus pain, ear ache. CARDIOVASCULAR: No angina, palpitations, orthopnea or paroxysmal dyspnea. RESPIRATORY: No SOB. GASTROINTESTINAL: No abdominal pain, nausea, vomiting, diarrhea, hematemesis, melena or change in the patient's habitual bowel movements consistency/number. GENITOURINARY: No dysuria, hematuria or change in bladder continence. MUSCULOSKELETAL: No new muscle pain or decrease in muscular strength. No new joint swelling, redness or tenderness. SKIN: No new rash. Past Medical History: [ ] Past Surgical History: [ ] Past Social History: [ ] Family History: [ ] Coded Allergies: No Known Drug Allergies (Unverified Allergy, Unknown, 07/14/23) Physical Exam: GEN: Awake, alert, oriented in person, time and place, and in no acute distress. HEENT: No sinus tenderness. Tympanic membranes were not examined. No rhinorrhea. Oral pharyngeal mucosa is pink, moist and within normal limits. Neck is supple with no cervical lymphadenopathy, thyromegaly or JVD. CHEST: Inspection, palpation and percussion of the chest were unremarkable. Lung auscultation revealed normal breath sounds bilaterally. CARDIAC: PMI is within normal limits. Heart sounds are regular. Normal S1, S2. No gallop or murmur. ABD: Soft, non-tender and not distended. No peritoneal signs on palpation. No organomegaly. Normal bowel sounds. EXT: No cyanosis or clubbing. No edema. SKIN: Intact. No rashes. JOINTS: No evidence of synovitis or acute arthritis. NEURO: Alert and oriented to name, place and person. Cranial nerve examination is unremarkable. No focal motor deficits. Normal speech. Gait is normal. Strength is normal. Vital Sign (Last 24 Hours) 05/18/25 05/18/25 19:13 20:00 Temp 98.1 Pulse 93 Resp 24 B/P (MAP) 140/91 Pulse Ox 98 O2 Delivery Nasal Cannula O2 Flow Rate 4.0 FiO2 36 Intake & Output (last 24hrs) 05/17/25 05/17/25 05/18/25 15:00 23:00 07:00 Intake Total 400.0 ml Output Total 300 ml 600 ml Balance 100.0 ml -600 ml Laboratory: [ ] Laboratory: Test 05/18/25 20:02 05/18/25 16:08 05/18/25 04:15 Range/Units Whole Blood Glucose 81 70-110 MG/DL Bedside Glucose Comment Notified Nurse White Blood Count 14.0 H 4.8-10.8 K/uL Red Blood Count 3.48 L 4.50-6.20 MIL/uL Hemoglobin 11.0 L 14.0-18.0 g/dL Hematocrit 35.4 L 42-54 % Mean Corpuscular Volume 101.7 H 79-99 fL Mean Corpuscular Hemoglobin 31.6 27.0-33.0 pg Mean Corpuscular Hemoglobin Concent 31.1 L 32.0-36.0 g/dL Red Cell Distribution Width 20.5 H 11.0-15.5 % Platelet Count 91 L 130-400 K/uL Mean Platelet Volume 10.9 H 7.5-10.5 fL Immature Granulocyte % (Auto) 3.8 H 0-1 % Neutrophils (%) (Auto) 90.2 H 40.0-77.0 % Lymphocytes (%) (Auto) 1.6 L 21.0-51.0 % Monocytes (%) (Auto) 4.1 3.0-13.0 % Eosinophils (%) (Auto) 0.0 0.0-8.0 % Basophils (%) (Auto) 0.3 0.0-5.0 % Neutrophils # (Auto) 12.6 H 1.8-7.7 K/uL Lymphocytes # (Auto) 0.2 L 1.0-4.8 K/uL Monocytes # (Auto) 0.6 0.1-1.0 K/uL Eosinophils # (Auto) 0.00 0.00-0.70 K/uL Basophils # (Auto) 0.04 0.00-0.20 K/uL Absolute Immature Granulocyte (auto 0.53 0-1 K/uL Nucleated Red Blood Cells 0.0 0.0-0.19 % Sodium Level 148 H 136-145 mmol/L Potassium Level 4.7 3.5-5.1 mmol/L Chloride Level 112 H 101-111 mmol/L Carbon Dioxide Level 23 21-32 mmol/L Blood Urea Nitrogen 51 H 7-18 mg/dL Creatinine 2.0 H 0.5-1.3 mg/dL Glomerular Filtration Rate Calc 32 >90 mL/min Random Glucose 120 H 70-105 mg/dL Total Calcium 8.5 8.5-10.1 mg/dL Current Medications Medications (Trade) Dose Ordered Sig/Stalin Route PRN Reason Start Time Stop Time Status Last Admin Dose Admin Apixaban (EliquIS) 5 mg BID PO 05/17/25 21:00 06/16/25 20:59 05/18/25 21:17 5 MG Bacitracin (Bacitracin 28.4gm) apply to left upper arm ... DAILY TP 05/18/25 09:00 06/17/25 08:59 05/18/25 09:00 1 GM Cefepime HCl (MAXipime 2 gm vial) 2 gm Q12H IVPB 05/15/25 16:30 05/16/25 04:37 DC 05/15/25 18:06 2 GM Cefepime HCl (MAXipime 2 gm vial) 2 gm Q12H IVPB 05/16/25 06:00 05/16/25 12:00 DC 05/16/25 05:55 2 GM Cefepime HCl (MAXipime 2 gm vial) 2 gm Q8H IVPB 05/15/25 16:00 05/15/25 16:01 DC Ceftriaxone Sodium (Rocephin 2gm Inj) 2 gm Q24H IVPB 05/16/25 09:00 05/16/25 08:56 DC Ceftriaxone Sodium (Rocephin 2gm Inj) 2 gm Q24H IVPB 05/16/25 14:00 05/26/25 13:59 05/17/25 14:15 2 GM Doxycycline Hyclate 250 ml @ 125 mls/hr BID IV 05/16/25 09:00 05/26/25 08:59 05/18/25 21:17 125 MLS/HR Doxycycline Hyclate 250 ml @ 125 mls/hr Q12H IV 05/15/25 16:00 05/16/25 00:36 DC 05/15/25 16:26 125 MLS/HR Famotidine (Pepcid 20mg Vial) 20 mg BID IV 05/15/25 21:00 06/14/25 20:59 05/18/25 21:16 20 MG Guaifenesin/ Dextromethorphan (RobiTUSSin DM 200/20MG 10ML) 10 ml Q4H PRN PO COUGH 05/15/25 16:00 06/14/25 15:59 Insulin Human Regular (humuLIN R 100 UNIT/ML 3ML) INSULIN SLIDING SCAL... ACHS SQ 05/15/25 16:30 06/14/25 16:29 Ipratropium [place] (AtrovENT UD) 0.5 mg [id number] IH 05/15/25 18:00 06/14/25 17:59 05/18/25 19:13 0.5 MG Linezolid 300 ml @ 300 mls/hr Q12H IV 05/16/25 01:00 05/16/25 08:55 DC 05/16/25 02:33 300 MLS/HR Methylprednisolone Sodium Succinate (Solu-medROL 40MG) 40 mg BID IVP 05/15/25 21:00 06/14/25 20:59 05/18/25 21:16 40 MG Pharmacy Profile Note (Lace Assessment) 1 each AD MISC 05/17/25 09:00 05/17/25 08:36 DC Pharmacy Profile Note (Pharmacy Communication) 1 each ONCE STAT MISC 05/16/25 00:32 05/16/25 00:42 DC Polyethylene Glycol (MIRalax 3350 17 GM POWD.PACK) 17 gm DAILY PRN PO CONSTIPATION 05/15/25 16:00 06/14/25 15:59 Sodium Chloride 1,000 ml @ 50 mls/hr Q20H IV 05/15/25 16:00 05/15/25 20:16 DC 05/15/25 16:26 50 MLS/HR Wound Care/ Dressing Products (Venelex Ointment) apply to sacrum DAILY TP 05/18/25 09:00 06/17/25 08:59 05/18/25 09:00 1 GM Diagnostics / Radiology: [COPY/PASTE HERE IF NO REPORTS PLEASE DELETE SECTION] Assessment: Oropharyngeal dysphagia Feeding difficulties Colon cancer Plan: 1. NPO after MN. Hold tube feeds at MN if receiving tube feeds 2. EGD with PEG placement in the AM. Risk, benefits, alternatives and potential complications were discussed with the patient and patient family. They agree to proceed. 3. Consult collision worker for tube feed recommendations and goal rate 4. After placement of the PEG, ok to start tube feeds and medications 6 hours after the PEG is placed 5. Flush PEG tube 6 oz water after each medication and every 6 hours 6. Start tube feeds 6 hours after the PEG is placed at 30 mL/hr. Increase by 10 mL/hr every 4 hours until goal is reached in AM. Check residuals per protocol 7. Clean PEG site daily with soap and water 8. Place gauze over the external PEG bumper and not under the bumper Thank you for allowing us to participate in the care of this patient! KATHRYN SILVERMAN [facility] May 18, 2025 21:46
[2025-05-18] MEDS: HALOPERIDOL INJ 5 MG/ML VIAL IM PRN (22:25)
[2025-05-19] VITALS (14 sets, daily range): BP systolic 129–160; BP diastolic 59–99; PULSE 64–99; RESP 19–28; TEMP 97.4–97.9; O2SAT 93–99
[2025-05-19 06:15] LABS: IMMATURE GRANULOCYTE ABSOLUTE 0.57 K/uL (0-1); NUCLEATED RED BLOOD CELLS 0.2 % (0.0-0.19); PLATELET COUNT (AUTO) 84 K/uL (130-400); RED BLOOD CELL COUNT(AUTO) 3.36 MIL/uL (4.50-6.20); RED CELL DISTRIBUTION WIDTH 20.3 % (11.0-15.5); WHITE BLOOD COUNT (AUTO) 16.2 K/uL (4.8-10.8)
--- NOTE | 2025-05-19 07:04 | NUR ---
CALLED SONOMKAR @ [phone] AND [phone] TO GET CONSENT FOR EGD/PEG; NO ANSWER. CALLED DAUGHTER THANH , NO ANSWER. SPOKE TO BROTHERJOSEFA @ [phone] AND HE STATED HE IS SECONDARY POA AND THEY SPOKE YESTERDAY RE: PEG AND ARE IN AGREEMENT FOR PROCEDURE. WILL COME BY TO SIGN CONSENT FOR ANASTHESIA. TELEPHONE CONSENT GIVEN FOR PEG PLACEMENT BY BROTHER
[2025-05-19 07:31] LABS: ASPARTATE AMINOTRANSFERASE 40.0 U/L (10-37); CREATININE 2.2 mg/dL (0.5-1.3); GLOMERULAR FILTR. RATE CALC 28.0 mL/min (>90); GLUCOSE,RANDOM 132.0 mg/dL (70-105); PHOSPHORUS 4.8 mg/dL (2.5-4.9); SODIUM SERUM 146.0 mmol/L (136-145); TOTAL PROTEIN, SERUM 4.7 g/dL (6.0-8.3); UREA NITROGEN, BLOOD 60.0 mg/dL (7-18)
--- NOTE | 2025-05-19 09:22 | PN ---
SUBJECTIVE: The patient is now DNR/DNI. He is on the medical floor now. He is very lethargic, but I woke him up. The head of the GI lab is at the bedside as well. I asked him again if he wants a PEG tube, he said absolutely not and he does not want a PEG tube for any reason. He just wants to remain comfortable. He just wants to in his words. He has refused all medications. PHYSICAL EXAMINATION: GENERAL: Shows elderly man. VITAL SIGNS: Blood pressure 160/59, pulse 99, respirations 20. CHEST: Clear. HEART: Regular rate and rhythm. ABDOMEN: Soft. EXTREMITIES: Show no edema. NEUROLOGIC: He is awake and lucid. IMPRESSION: * Acute hypoxic respiratory failure. * Community-acquired pneumonia. * Sepsis. * Cystitis. * Bilateral pleural effusions. * Acute kidney injury. * Metastatic colon cancer, liver. * DVT, status post IVC filter. * Pulmonary hypertension. * Bladder cancer. * AFib. PLAN: Continue hospice-type measures. He really wants comfort measures. He does not want any interventions at all. I would suggest switching to a hospice mode and comfort measures. TID: [id number] RECEIPT: [id number]
--- NOTE | 2025-05-19 10:37 | PN ---
GASTROENTEROLOGY PROGRESS NOTE Date of Visit: May 19, 2025 Time of Visit: 10:37 Events / Notes: [ ] Review of Systems: CONSTITUTIONAL: No malaise or change in sensation of wellbeing. ENMT: No rhinorrhea, otorrhea, sinus pain, ear ache. CARDIOVASCULAR: No angina, palpitations, orthopnea or paroxysmal dyspnea. RESPIRATORY: No SOB. GASTROINTESTINAL: No abdominal pain, nausea, vomiting, diarrhea, hematemesis, melena or change in the patient's habitual bowel movements consistency/number. GENITOURINARY: No dysuria, hematuria or change in bladder continence. MUSCULOSKELETAL: No new muscle pain or decrease in muscular strength. No new joint swelling, redness or tenderness. SKIN: No new rash. Physical Exam: GEN: Awake, alert, oriented in person, time and place, and in no acute distress. HEENT: No sinus tenderness. Tympanic membranes were not examined. No rhinorrhea. Oral pharyngeal mucosa is pink, moist and within normal limits. Neck is supple with no cervical lymphadenopathy, thyromegaly or JVD. CHEST: Inspection, palpation and percussion of the chest were unremarkable. Lung auscultation revealed normal breath sounds bilaterally. CARDIAC: PMI is within normal limits. Heart sounds are regular. Normal S1, S2. No gallop or murmur. ABD: Soft, non-tender and not distended. No peritoneal signs on palpation. No organomegaly. Normal bowel sounds. EXT: No cyanosis or clubbing. No edema. SKIN: Intact. No rashes. JOINTS: No evidence of synovitis or acute arthritis. NEURO: Alert and oriented to name, place and person. Cranial nerve examination is unremarkable. No focal motor deficits. Normal speech. Gait is normal. Strength is normal. Vital Signs (last 8hr) Date Time Temp Pulse Resp B/P (MAP) Pulse Ox O2 Delivery O2 Flow Rate FiO2 05/19/25 08:16 97.5 95 19 129/86 93 Nasal Cannula 3.0 05/19/25 07:13 96 22 05/19/25 07:12 96 22 N/Cannula Low lpm 3.0 32 05/19/25 04:00 97.3 99 24 160/59 95 Nasal Cannula 3.0 Laboratory: [ ] Laboratory: Test 05/19/25 05:33 05/18/25 16:08 Range/Units White Blood Count 16.2 H 4.8-10.8 K/uL Red Blood Count 3.36 L 4.50-6.20 MIL/uL Hemoglobin 10.7 L 14.0-18.0 g/dL Hematocrit 34.1 L 42-54 % Mean Corpuscular Volume 101.5 H 79-99 fL Mean Corpuscular Hemoglobin 31.8 27.0-33.0 pg Mean Corpuscular Hemoglobin Concent 31.4 L 32.0-36.0 g/dL Red Cell Distribution Width 20.3 H 11.0-15.5 % Platelet Count 84 L 130-400 K/uL Mean Platelet Volume 11.1 H 7.5-10.5 fL Immature Granulocyte % (Auto) 3.5 H 0-1 % Neutrophils (%) (Auto) 90.8 H 40.0-77.0 % Lymphocytes (%) (Auto) 1.0 L 21.0-51.0 % Monocytes (%) (Auto) 4.5 3.0-13.0 % Eosinophils (%) (Auto) 0.0 0.0-8.0 % Basophils (%) (Auto) 0.2 0.0-5.0 % Neutrophils # (Auto) 14.7 H 1.8-7.7 K/uL Lymphocytes # (Auto) 0.2 L 1.0-4.8 K/uL Monocytes # (Auto) 0.7 0.1-1.0 K/uL Eosinophils # (Auto) 0.00 0.00-0.70 K/uL Basophils # (Auto) 0.04 0.00-0.20 K/uL Absolute Immature Granulocyte (auto 0.57 0-1 K/uL Nucleated Red Blood Cells 0.2 H 0.0-0.19 % Sodium Level 146 H 136-145 mmol/L Potassium Level 4.4 3.5-5.1 mmol/L Chloride Level 112 H 101-111 mmol/L Carbon Dioxide Level 22 21-32 mmol/L Blood Urea Nitrogen 60 H 7-18 mg/dL Creatinine 2.2 H 0.5-1.3 mg/dL Glomerular Filtration Rate Calc 28 >90 mL/min Whole Blood Glucose 126 #H 70-110 MG/DL Random Glucose 132 H 70-105 mg/dL Total Calcium 8.4 L 8.5-10.1 mg/dL Phosphorus Level 4.8 2.5-4.9 mg/dL Magnesium Level 2.40 1.80-2.40 mg/dL Total Bilirubin 0.8 0.2-1.0 mg/dL Aspartate Amino Transf (AST/SGOT) 40 H 10-37 U/L Alanine Aminotransferase (ALT/SGPT) 25 12-78 U/L Alkaline Phosphatase 204 H 50-136 U/L Total Protein 4.7 L 6.0-8.3 g/dL Albumin 1.9 L 3.5-5.0 g/dL Bedside Glucose Comment Notified Nurse Current Medications Medications (Trade) Dose Ordered Sig/Stalin Route PRN Reason Start Time Stop Time Status Last Admin Dose Admin Apixaban (EliquIS) 5 mg BID PO 05/17/25 21:00 06/16/25 20:59 05/18/25 21:17 5 MG Bacitracin (Bacitracin 28.4gm) apply to left upper arm ... DAILY TP 05/18/25 09:00 06/17/25 08:59 05/18/25 09:00 1 GM Cefepime HCl (MAXipime 2 gm vial) 2 gm Q12H IVPB 05/15/25 16:30 05/16/25 04:37 DC 05/15/25 18:06 2 GM Cefepime HCl (MAXipime 2 gm vial) 2 gm Q12H IVPB 05/16/25 06:00 05/16/25 12:00 DC 05/16/25 05:55 2 GM Cefepime HCl (MAXipime 2 gm vial) 2 gm Q8H IVPB 05/15/25 16:00 05/15/25 16:01 DC Ceftriaxone Sodium (Rocephin 2gm Inj) 2 gm Q24H IVPB 05/16/25 09:00 05/16/25 08:56 DC Ceftriaxone Sodium (Rocephin 2gm Inj) 2 gm Q24H IVPB 05/16/25 14:00 05/26/25 13:59 05/17/25 14:15 2 GM Doxycycline Hyclate 250 ml @ 125 mls/hr BID IV 05/16/25 09:00 05/26/25 08:59 05/19/25 09:48 125 MLS/HR Doxycycline Hyclate 250 ml @ 125 mls/hr Q12H IV 05/15/25 16:00 05/16/25 00:36 DC 05/15/25 16:26 125 MLS/HR Famotidine (Pepcid 20mg Vial) 20 mg BID IV 05/15/25 21:00 06/14/25 20:59 05/19/25 09:48 20 MG Guaifenesin/ Dextromethorphan (RobiTUSSin DM 200/20MG 10ML) 10 ml Q4H PRN PO COUGH 05/15/25 16:00 06/14/25 15:59 Haloperidol Lactate (Haldol Inj) 2.5 mg ONCE PRN IM ANXIETY/AGITATION 05/18/25 22:30 06/17/25 22:29 05/18/25 22:25 2.5 MG Insulin Human Regular (humuLIN R 100 UNIT/ML 3ML) INSULIN SLIDING SCAL... ACHS SQ 05/15/25 16:30 06/14/25 16:29 Ipratropium [place] (AtrovENT UD) 0.5 mg [id number] IH 05/15/25 18:00 06/14/25 17:59 05/19/25 07:13 0.5 MG Linezolid 300 ml @ 300 mls/hr Q12H IV 05/16/25 01:00 05/16/25 08:55 DC 05/16/25 02:33 300 MLS/HR Methylprednisolone Sodium Succinate (Solu-medROL 40MG) 40 mg BID IVP 05/15/25 21:00 06/14/25 20:59 05/19/25 09:48 40 MG Pharmacy Profile Note (Lace Assessment) 1 each AD MISC 05/17/25 09:00 05/17/25 08:36 DC Pharmacy Profile Note (Pharmacy Communication) 1 each ONCE STAT MISC 05/16/25 00:32 05/16/25 00:42 DC Polyethylene Glycol (MIRalax 3350 17 GM POWD.PACK) 17 gm DAILY PRN PO CONSTIPATION 05/15/25 16:00 06/14/25 15:59 Sodium Chloride 1,000 ml @ 50 mls/hr Q20H IV 05/15/25 16:00 05/15/25 20:16 DC 05/15/25 16:26 50 MLS/HR Wound Care/ Dressing Products (Venelex Ointment) apply to sacrum DAILY TP 05/18/25 09:00 06/17/25 08:59 05/18/25 09:00 1 GM Diagnostics / Radiology: [COPY/PASTE HERE IF NO REPORTS PLEASE DELETE SECTION] Assessment: Oropharyngeal dysphagia Feeding difficulties Colon cancer Plan: Scheduled for peg; however, patient defers KATHRYN SILVERMAN [employer] May 19, 2025 10:37
--- NOTE | 2025-05-19 13:25 | NUR ---
MIGUEL GUTIERREZ RETAIL CASHIER ASSOCIATE MADE AWARE THAT ENDO DID NOT PLACE PEG TODAY PER PATIENT STATED HE DIDN'T WANT IT". INFORMED THAT CONSENT WAS SIGNED BY BROTHER AND SON/DAUGHTER IS AWARE AND THEY ALL AGREED (INCLUDING PATIENT) YESTERDAY TO HAVE IT PLACED.
--- NOTE | 2025-05-19 14:57 | PN ---
[facility] PROGRESS NOTE Date Patient Seen: May 19, 2025 Time of Visit: 14:57 Supervising Physician: Dr. Geraldo Garcia Primary Care Physician: Dr. Luis Heaton Outpatient Specialists: [Dr. Burnett-oncology Inpatient Consults: Dr. Burnett (Oncology), Dr. Neftali Mcneill (GI) PROBLEM LIST: Acute hypoxemic respiratory failure Acute delirium Acute metabolic encephalopathy Pneumonia, aspiration Sepsis present on admission Acute cystitis (+) ENTEROCOCCUS FAECALIS Fluid overload, POA Bilateral pleural effusion, POA NATI, POA Left lower extremity wound, POA Hypocalcemia, POA Medical debility and frailty,POA Primary Hypertension Stage IV colon cancer with metastases with recent chemotherapy on 04/26/2025 (pending 4 more treatments) History of bladder cancer with urostomy Failure to thrive LLE DVT with IVC filter Chronic Afib, was on DOAC Neuropathy AAA Octogenarian DNR status INTERVAL HISTORY: Patient assessed at bedside. Patient asleep. Responds to verbal and tactile stimuli. Patient was scheduled for PEG tube this morning but patient refused and stated he "didn't want it". Spoke to daughter Jenny at bedside and she states that patient didn't want "artificial life support" as stated in his will but that she was going to talk to her brother and sister and likely opt for hospice care but will let us know later today. According to daughter, patient has been very confused and aggressive at times. WBC increased to 16.2. GFR decreased to 28. Prognosis is poor. Plan: AM labs Possible on hospice per daughter Continue IV ABX and medical treatment Continue family discussion of goals of care REVIEW OF SYSTEMS: Unable to perform 12 point ROS due to patient being fatigued. Daughter at bedside and gave residual history and information. PHYSICAL EXAM: GENERAL: alert, weak, awake oriented x 2 HEENT: EOMI, Sclera non icteric, dry mucosa NECK: Supple, no JVD, trachea midline LUNGS: Diffused crackles bilaterally. No wheezes HEART: Regular rate and rhythm. Normal S1 and S2, without murmurs ABD: Abdomen soft, nontender. Bowel sounds present EXT: No clubbing cyanosis, 3+ pitting edema on BLE, LLE wound covered with dressing. Right chest mediport NEURO: Alert and oriented to person, follows commands Vital Signs (last 8hr) Date Time Temp Pulse Resp B/P (MAP) Pulse Ox O2 Delivery O2 Flow Rate FiO2 7/10/25 11:54 97.5 89 19 129/99 93 Nasal Cannula 3.0 05/19/25 11:08 85 22 05/19/25 11:07 85 20 N/Cannula Low lpm 3.0 32 05/19/25 11:01 93 Nasal Cannula* 3 32 05/19/25 08:16 97.5 95 19 129/86 93 Nasal Cannula 3.0 05/19/25 07:13 96 22 05/19/25 07:12 96 22 N/Cannula Low lpm 3.0 32 LABS: Hematology Labs: Test 05/19/25 05:33 Range/Units White Blood Count 16.2 H 4.8-10.8 K/uL Red Blood Count 3.36 L 4.50-6.20 MIL/uL Hemoglobin 10.7 L 14.0-18.0 g/dL Hematocrit 34.1 L 42-54 % Mean Corpuscular Volume 101.5 H 79-99 fL Mean Corpuscular Hemoglobin 31.8 27.0-33.0 pg Mean Corpuscular Hemoglobin Concent 31.4 L 32.0-36.0 g/dL Red Cell Distribution Width 20.3 H 11.0-15.5 % Platelet Count 84 L 130-400 K/uL Mean Platelet Volume 11.1 H 7.5-10.5 fL Immature Granulocyte % (Auto) 3.5 H 0-1 % Neutrophils (%) (Auto) 90.8 H 40.0-77.0 % Lymphocytes (%) (Auto) 1.0 L 21.0-51.0 % Monocytes (%) (Auto) 4.5 3.0-13.0 % Eosinophils (%) (Auto) 0.0 0.0-8.0 % Basophils (%) (Auto) 0.2 0.0-5.0 % Neutrophils # (Auto) 14.7 H 1.8-7.7 K/uL Lymphocytes # (Auto) 0.2 L 1.0-4.8 K/uL Monocytes # (Auto) 0.7 0.1-1.0 K/uL Eosinophils # (Auto) 0.00 0.00-0.70 K/uL Basophils # (Auto) 0.04 0.00-0.20 K/uL Absolute Immature Granulocyte (auto 0.57 0-1 K/uL Nucleated Red Blood Cells 0.2 H 0.0-0.19 % Chemistry Labs: Test 05/19/25 10:52 05/19/25 05:33 05/18/25 16:08 Range/Units Whole Blood Glucose 130 H 70-110 MG/DL Sodium Level 146 H 136-145 mmol/L Potassium Level 4.4 3.5-5.1 mmol/L Chloride Level 112 H 101-111 mmol/L Carbon Dioxide Level 22 21-32 mmol/L Blood Urea Nitrogen 60 H 7-18 mg/dL Creatinine 2.2 H 0.5-1.3 mg/dL Glomerular Filtration Rate Calc 28 >90 mL/min Random Glucose 132 H 70-105 mg/dL Total Calcium 8.4 L 8.5-10.1 mg/dL Phosphorus Level 4.8 2.5-4.9 mg/dL Magnesium Level 2.40 1.80-2.40 mg/dL Total Bilirubin 0.8 0.2-1.0 mg/dL Aspartate Amino Transf (AST/SGOT) 40 H 10-37 U/L Alanine Aminotransferase (ALT/SGPT) 25 12-78 U/L Alkaline Phosphatase 204 H 50-136 U/L Total Protein 4.7 L 6.0-8.3 g/dL Albumin 1.9 L 3.5-5.0 g/dL Bedside Glucose Comment Notified Nurse DIAGNOSTICS / RADIOLOGY RESULTS: PROCEDURE: CXR1VW - CHEST 1VW EXAM: CR Chest, 1 View. CLINICAL HISTORY: PNA COMPARISON: Radiograph dated May 15, 2025 FINDINGS: Right Mediport catheter tip projects at the distal SVC. Improved aeration within the bilateral lower lungs. No pleural effusion or pneumothorax. Heart size is stable. Pulmonary vessels are within normal limits. IMPRESSION: 1. Resolving bibasilar airspace disease. 2. Right mediport catheter tip appropriately positioned in distal SVC. PLAN NEURO: Minimize central acting medications as possible. Maintain fall precautions, adequate lighting during the day PULMONARY: Supplemental 02 as needed. Maintain aspiration precautions at all times CARDIOVASCULAR: Follow hemodynamics. Vital signs per facility protocol GI & NUTRITION: Continue with nutritional support. Continue stool softeners and laxatives as needed. KIDNEYS & ELECTROLYTES: Strict monitoring of intake, output and overall fluid balance. Avoid nephrotoxic medications to the extent possible. Medications to be dosed according to renal function. Monitor electrolytes and replace as needed ENDOCRINE: Maintain blood glucose between 100-180 at all times. Hypoglycemia protocol in place INFECTIOUS DISEASE: Trend temperature, WBC and procalcitonin level Follow cultures, deescalate antibiotics as soon as possible. Panculture if new onset fever ONCOLOGY/HEMATOLOGY/COAGULATION: Monitor for s/s of bleeding Monitor hemoglobin, coagulation studies as needed SKIN: Pressure ulcer prevention per facility protocol Specialty mattress ORTHO/REHAB: Continue PT/OT Prophylaxis: Continue GI and DVT prophylaxis Code Status: Full Resuscitation Disposition: TBD Other: Total patient care time exceeds 35 minutes excluding all procedures. MIGUEL GUTIERREZ LEHR TENDER May 19, 2025 14:57
--- NOTE | 2025-05-19 15:19 | HMCIMG ---
EXAM: CR Chest, 1 View. CLINICAL HISTORY: PNA COMPARISON: Radiograph dated May 15, 2025 FINDINGS: Right Mediport catheter tip projects at the distal SVC. Improved aeration within the bilateral lower lungs. No pleural effusion or pneumothorax. Heart size is stable. Pulmonary vessels are within normal limits. IMPRESSION: 1. Resolving bibasilar airspace disease. 2. Right mediport catheter tip appropriately positioned in distal SVC. /[place]
--- NOTE | 2025-05-19 15:29 | NUR ---
SOCIAL SERVICE CONSULT PLACED FOR HASPICE SERVICES FAMILY HAS DECIDED NOT TO PLACE PEG AND IS INQUIRING RE: HOSPICE
--- NOTE | 2025-05-19 15:45 | NUR ---
[facility] Follow-up: Patient re-assessed by wound healing team. Assessment and recommendations provided to primary nurse. Education provided. Addendum: 05/20/25 at 1628 by ANNE-MARIE JANSEN RN RN/ Amended: Links added.
--- NOTE | 2025-05-19 16:30 | NUR ---
DCP: PENDING HOSPICE PLACEMENT AT [facility] MINOR made contact with major account manager at [facility] and was informed that at this time there are 3 other patients on a wait for placement at their facility. Advised Martha at [facility] and informed her to families wishes and she stated that she will be making contact with the family to begin process.
--- NOTE | 2025-05-19 16:53 | NUR ---
MINOR received order for hospice services and followed up with son Shawn and dgt Jenny and family is in agreement with hospice services at this time. MINOR received verbal consent from son and allowed for his sister to pick the hospice agency. Dgt decided on [facility]. MINOR faxed over clinicals to Claire Bruner from [facility] [phone]
[2025-05-20] VITALS (12 sets, daily range): BP systolic 125–150; BP diastolic 74–86; PULSE 64–92; RESP 18–24; TEMP 97.7–97.9; O2SAT 93–95
[2025-05-20 06:52] LABS: NUCLEATED RED BLOOD CELLS 0.2 % (0.0-0.19); PLATELET COUNT (AUTO) 75.0 K/uL (130-400); RED BLOOD CELL COUNT(AUTO) 3.16 MIL/uL (4.50-6.20); RED CELL DISTRIBUTION WIDTH 20.1 % (11.0-15.5); WHITE BLOOD COUNT (AUTO) 14.7 K/uL (4.8-10.8)
--- NOTE | 2025-05-20 07:01 | NUR ---
PATIENT UPDATE PT RECEIVED DROWSY TO LETHARGIC AT SHIFT CHANGE. MUMBLES AT NAME CALLING THEN GOES BACK TO SLEEP AGAIN.WOKE UP AT 0130, REORIENTED X 3. MAXIME UPPER EXTREMITIES WITH WEEPING SKIN TEARS, WOUND CARE DONE, BACITRACIN OINT APPLIED, APPLIED NON ADHERENT DRESSING OVER THE OPEN AREAS, WRAPPED THE ARM WITH KERLIX ROLL. PT MADE COMFORTABLE IN BED, WET GOWN AND SHEETS CHANGED. NO COMPLAINTS OF ANY DISCOMFORT, VITAL SIGNS STABLE.
[2025-05-20 07:06] LABS: ASPARTATE AMINOTRANSFERASE 31.0 U/L (10-37); CREATININE 2.4 mg/dL (0.5-1.3); GLOMERULAR FILTR. RATE CALC 26.0 mL/min (>90); GLUCOSE,RANDOM 130.0 mg/dL (70-105); SODIUM SERUM 148.0 mmol/L (136-145); TOTAL PROTEIN, SERUM 4.4 g/dL (6.0-8.3); UREA NITROGEN, BLOOD 65.0 mg/dL (7-18)
--- NOTE | 2025-05-20 08:00 | NUR ---
ROUNDS PT RESTING COMFORTABLE IN BED. ASSISTED PT TO SIT UP FOR BREAKFAST. BLANKETS WERE REPLACED. PILLOWS REPOSITIONED UNDER HEEL TO OFF LOAD. PT DENIES ANY CURRENT PAIN
--- NOTE | 2025-05-20 08:42 | NUR ---
HOSPICE UPDATE Received a call from [facility] and she updated that she had conducted a telephone evaluation with son Shawn yesterday and is set to come to the pt's room today at 10am to meet with OLIVER Alvarado to go over consents. Martha stated that she began the application for [facility] and when she meets with family today she will discuss other options with family and loop in on what family decides.
--- NOTE | 2025-05-20 09:39 | PN ---
LOCATION: [id number] SUBJECTIVE: The patient is doing poorly. He is asleep. He does respond to stimulation. He is very clear in his wishes. He does not want any kind of intervention. He tells me he is tired and just wants to . PHYSICAL EXAMINATION: GENERAL: Shows elderly man. VITAL SIGNS: Blood pressure 148/81, pulse 89 and respirations 20. CHEST: Clear. ABDOMEN: Soft. EXTREMITIES: . IMPRESSION: * Acute hypoxic respiratory failure. * Metabolic encephalopathy. * Pneumonia. * Sepsis on admission. * Cystitis. * Stage IV colon cancer with metastasis to the liver, off chemotherapy. * Hypertension. * Bladder cancer. * Atrial fibrillation. * Neuropathy. * LVH. * DNR status. PLAN: I would recommend just comfort care. This is the patient's wishes. He does not want to be artificially prolonged. We had this discussion in the last admission I had him at this hospital and he clearly said that he does not want any more aggressive treatment. I would ask that we respect his wishes. TID: [id number] RECEIPT: [id number]
--- NOTE | 2025-05-20 11:14 | NUR ---
HOSPICE UPDATE Spoke with Martha from [facility] and she was advised that Francine Tirado did not have availability at this time and that they will try Lulu rodriguez however family states that they may not have the means to cover the cost for stay. [facility] will provide an update once they make contact with Lulu rodriguez
[2025-05-20] MEDS: guaiFENesin-DM 200/20MG 10ML PO PRN (12:30)
--- NOTE | 2025-05-20 13:12 | PN ---
[facility] PROGRESS NOTE Date Patient Seen: May 20, 2025 Time of Visit: 13:12 Supervising Physician: Dr. Geraldo Garcia Primary Care Physician: Dr. Luis Heaton Outpatient Specialists: [Dr. Burnett-oncology Inpatient Consults: Dr. Burnett (Oncology), Dr. Neftali Mcneill (GI) PROBLEM LIST: Acute hypoxemic respiratory failure Acute delirium, improved Acute metabolic encephalopathy Pneumonia, aspiration Sepsis present on admission Acute cystitis (+) ENTEROCOCCUS FAECALIS Fluid overload, POA Bilateral pleural effusion, POA NATI, POA Left lower extremity wound, POA Hypocalcemia, POA Medical debility and frailty,POA Primary Hypertension Stage IV colon cancer with metastases with recent chemotherapy on 04/26/2025 (pending 4 more treatments) History of bladder cancer with urostomy Failure to thrive LLE DVT with IVC filter Chronic Afib, was on DOAC Neuropathy AAA Octogenarian DNR status INTERVAL HISTORY: Patient assessed at bedside. Awake and alert today. Currently on 3LPM via NC. Very weak. States he feels tired. Patient and family have opted for hospice care and pending placement. GFR decreased to 26 and creatinine increased to 2.4. Prognosis is poor. Plan: CM arranging hospice at hospice home Continue IV ABX and medical treatment REVIEW OF SYSTEMS: Unable to perform 12 point ROS due to patient being fatigued. Daughter at bedside and gave residual history and information. PHYSICAL EXAM: GENERAL: alert, weak, awake oriented x 2 HEENT: EOMI, Sclera non icteric, dry mucosa NECK: Supple, no JVD, trachea midline LUNGS: Diffused crackles bilaterally. No wheezes HEART: Regular rate and rhythm. Normal S1 and S2, without murmurs ABD: Abdomen soft, nontender. Bowel sounds present EXT: No clubbing cyanosis, 3+ pitting edema on BLE, LLE wound covered with dressing. Right chest mediport NEURO: Alert and oriented to person, follows commands Vital Signs (last 8hr) Date Time Temp Pulse Resp B/P (MAP) Pulse Ox O2 Delivery O2 Flow Rate FiO2 05/20/25 12:00 97.9 64 18 125/74 90 Nasal Cannula 3.0 05/20/25 11:37 85 18 05/20/25 08:00 97.7 92 18 150/86 94 Nasal Cannula 3.0 05/20/25 06:44 82 18 05/20/25 06:42 20 N/Cannula Low lpm 3.0 32 LABS: Hematology Labs: Test 05/20/25 06:50 05/19/25 05:33 Range/Units White Blood Count 14.7 H 4.8-10.8 K/uL Red Blood Count 3.16 L 4.50-6.20 MIL/uL Hemoglobin 10.3 L 14.0-18.0 g/dL Hematocrit 32.1 L 42-54 % Mean Corpuscular Volume 101.6 H 79-99 fL Mean Corpuscular Hemoglobin 32.6 27.0-33.0 pg Mean Corpuscular Hemoglobin Concent 32.1 32.0-36.0 g/dL Red Cell Distribution Width 20.1 H 11.0-15.5 % Platelet Count 75 L 130-400 K/uL Mean Platelet Volume 11.5 H 7.5-10.5 fL Nucleated Red Blood Cells 0.2 H 0.0-0.19 % Immature Granulocyte % (Auto) 3.5 H 0-1 % Neutrophils (%) (Auto) 90.8 H 40.0-77.0 % Lymphocytes (%) (Auto) 1.0 L 21.0-51.0 % Monocytes (%) (Auto) 4.5 3.0-13.0 % Eosinophils (%) (Auto) 0.0 0.0-8.0 % Basophils (%) (Auto) 0.2 0.0-5.0 % Neutrophils # (Auto) 14.7 H 1.8-7.7 K/uL Lymphocytes # (Auto) 0.2 L 1.0-4.8 K/uL Monocytes # (Auto) 0.7 0.1-1.0 K/uL Eosinophils # (Auto) 0.00 0.00-0.70 K/uL Basophils # (Auto) 0.04 0.00-0.20 K/uL Absolute Immature Granulocyte (auto 0.57 0-1 K/uL Chemistry Labs: Test 05/20/25 06:50 05/20/25 04:59 05/19/25 05:33 05/18/25 16:08 Range/Units Sodium Level 148 H 136-145 mmol/L Potassium Level 4.1 3.5-5.1 mmol/L Chloride Level 114 H 101-111 mmol/L Carbon Dioxide Level 23 21-32 mmol/L Blood Urea Nitrogen 65 H 7-18 mg/dL Creatinine 2.4 H 0.5-1.3 mg/dL Glomerular Filtration Rate Calc 26 >90 mL/min Random Glucose 130 H 70-105 mg/dL Total Calcium 8.1 L 8.5-10.1 mg/dL Magnesium Level 2.30 1.80-2.40 mg/dL Total Bilirubin 0.7 0.2-1.0 mg/dL Aspartate Amino Transf (AST/SGOT) 31 10-37 U/L Alanine Aminotransferase (ALT/SGPT) 25 12-78 U/L Alkaline Phosphatase 183 H 50-136 U/L Total Protein 4.4 L 6.0-8.3 g/dL Albumin 1.9 L 3.5-5.0 g/dL Whole Blood Glucose 121 H 70-110 MG/DL Phosphorus Level 4.8 2.5-4.9 mg/dL Bedside Glucose Comment Notified Nurse DIAGNOSTICS / RADIOLOGY RESULTS: NA PLAN NEURO: Minimize central acting medications as possible. Maintain fall precautions, adequate lighting during the day PULMONARY: Supplemental 02 as needed. Maintain aspiration precautions at all times CARDIOVASCULAR: Follow hemodynamics. Vital signs per facility protocol GI & NUTRITION: Continue with nutritional support. Continue stool softeners and laxatives as needed. KIDNEYS & ELECTROLYTES: Strict monitoring of intake, output and overall fluid balance. Avoid nephrotoxic medications to the extent possible. Medications to be dosed according to renal function. Monitor electrolytes and replace as needed ENDOCRINE: Maintain blood glucose between 100-180 at all times. Hypoglycemia protocol in place INFECTIOUS DISEASE: Trend temperature, WBC and procalcitonin level Follow cultures, deescalate antibiotics as soon as possible. Panculture if new onset fever ONCOLOGY/HEMATOLOGY/COAGULATION: Monitor for s/s of bleeding Monitor hemoglobin, coagulation studies as needed SKIN: Pressure ulcer prevention per facility protocol Specialty mattress ORTHO/REHAB: Continue PT/OT Prophylaxis: Continue GI and DVT prophylaxis Code Status: Full Resuscitation Disposition: TBD Other: Total patient care time exceeds 35 minutes excluding all procedures. MIGUEL GUTIERREZ NP May 20, 2025 13:12
--- NOTE | 2025-05-20 13:31 | NUR ---
[facility] does not take same day admissions. Hospice agency working on application and placement for pt.
--- NOTE | 2025-05-20 16:34 | NUR ---
Nutrition consult per poor po intake Reviewed labs, notes, and medications. Pt with last admin 05/02/25, on chemotherapy, on hospice, refused PEG tube placement, w/ dysphagia, on GI soft/bland diet per chart review. Wt via bed scale, last BM 05/17/25, sacrum ulcer, moderate pitting, PICC line in place, mild muscle loss, -500 ml balance 05/18/25, poor po intake per nursing. No TF recs due Pt's wishes and on hospice per nursing. Recommendations: -Provide GI soft/bland diet -Monitor PO intake -Encourage PO intake as able -If poor PO intake continues consider appetite stimulant -Monitor BM -If no BM >3 days consider stool softener -Consider probiotics QD per diarrhea -Monitor electrolytes -Replenish electrolytes per protocol -Monitor wts -Reweigh as able -Order Vit D, vit b-12 labs to rule out deficiencies -Provide MVI QD if medically feasible -Texture per [employer] recs -Recommend Pt to follow up with PCP -Monitor goals of care RD to follow + available for consult per protocol Addendum: 05/20/25 at [address] Amended: Links added.
[2025-05-21] VITALS (15 sets, daily range): BP systolic 134–164; BP diastolic 64–101; PULSE 82–93; RESP 18–24; TEMP 97.4–98.7; O2SAT 91–98
--- NOTE | 2025-05-21 14:12 | PN ---
[facility] PROGRESS NOTE Date Patient Seen: May 21, 2025 Time of Visit: 14:12 Supervising Physician: Dr. Geraldo Garcia Primary Care Physician: Dr. Luis Heaton Outpatient Specialists: [Dr. Burnett-oncology Inpatient Consults: Dr. Burnett (Oncology), Dr. Neftali Mcneill (GI) PROBLEM LIST: Acute hypoxemic respiratory failure Acute delirium, improved Acute metabolic encephalopathy Pneumonia, aspiration Sepsis present on admission Acute cystitis (+) ENTEROCOCCUS FAECALIS Fluid overload, POA Bilateral pleural effusion, POA NATI, POA Left lower extremity wound, POA Hypocalcemia, POA Medical debility and frailty,POA Primary Hypertension Stage IV colon cancer with metastases with recent chemotherapy on 04/26/2025 (pending 4 more treatments) History of bladder cancer with urostomy Failure to thrive LLE DVT with IVC filter Chronic Afib, was on DOAC Neuropathy AAA Octogenarian DNR status INTERVAL HISTORY: Patient assessed at bedside. Awake and alert today. Currently on 3LPM via NC. Very weak. Patient and family have opted for hospice care and pending placement. Prognosis is poor. Plan: CM arranging hospice at hospice home Continue IV ABX and medical treatment REVIEW OF SYSTEMS: Unable to perform 12 point ROS due to patient being fatigued. Daughter at bedside and gave residual history and information. PHYSICAL EXAM: GENERAL: alert, weak, awake oriented x 2 HEENT: EOMI, Sclera non icteric, dry mucosa NECK: Supple, no JVD, trachea midline LUNGS: Diffused crackles bilaterally. No wheezes HEART: Regular rate and rhythm. Normal S1 and S2, without murmurs ABD: Abdomen soft, nontender. Bowel sounds present EXT: No clubbing cyanosis, 3+ pitting edema on BLE, LLE wound covered with dressing. Right chest mediport NEURO: Alert and oriented to person, follows commands Vital Signs (last 8hr) Date Time Temp Pulse Resp B/P (MAP) Pulse Ox O2 Delivery O2 Flow Rate FiO2 05/21/25 12:00 97.9 82 18 164/68 92 Nasal Cannula 3.0 05/21/25 08:00 97.3 91 18 154/101 93 Nasal Cannula 3.0 05/21/25 06:47 88 18 05/21/25 06:46 20 N/Cannula Low lpm 3.0 32 LABS: Hematology Labs: Test 05/20/25 06:50 Range/Units White Blood Count 14.7 H 4.8-10.8 K/uL Red Blood Count 3.16 L 4.50-6.20 MIL/uL Hemoglobin 10.3 L 14.0-18.0 g/dL Hematocrit 32.1 L 42-54 % Mean Corpuscular Volume 101.6 H 79-99 fL Mean Corpuscular Hemoglobin 32.6 27.0-33.0 pg Mean Corpuscular Hemoglobin Concent 32.1 32.0-36.0 g/dL Red Cell Distribution Width 20.1 H 11.0-15.5 % Platelet Count 75 L 130-400 K/uL Mean Platelet Volume 11.5 H 7.5-10.5 fL Nucleated Red Blood Cells 0.2 H 0.0-0.19 % Chemistry Labs: Test 05/21/25 11:09 05/20/25 06:50 Range/Units Whole Blood Glucose 156 H 70-110 MG/DL Sodium Level 148 H 136-145 mmol/L Potassium Level 4.1 3.5-5.1 mmol/L Chloride Level 114 H 101-111 mmol/L Carbon Dioxide Level 23 21-32 mmol/L Blood Urea Nitrogen 65 H 7-18 mg/dL Creatinine 2.4 H 0.5-1.3 mg/dL Glomerular Filtration Rate Calc 26 >90 mL/min Random Glucose 130 H 70-105 mg/dL Total Calcium 8.1 L 8.5-10.1 mg/dL Magnesium Level 2.30 1.80-2.40 mg/dL Total Bilirubin 0.7 0.2-1.0 mg/dL Aspartate Amino Transf (AST/SGOT) 31 10-37 U/L Alanine Aminotransferase (ALT/SGPT) 25 12-78 U/L Alkaline Phosphatase 183 H 50-136 U/L Total Protein 4.4 L 6.0-8.3 g/dL Albumin 1.9 L 3.5-5.0 g/dL DIAGNOSTICS / RADIOLOGY RESULTS: [ ] PLAN NEURO: Minimize central acting medications as possible. Maintain fall precautions, adequate lighting during the day PULMONARY: Supplemental 02 as needed. Maintain aspiration precautions at all times CARDIOVASCULAR: Follow hemodynamics. Vital signs per facility protocol GI & NUTRITION: Continue with nutritional support. Continue stool softeners and laxatives as needed. KIDNEYS & ELECTROLYTES: Strict monitoring of intake, output and overall fluid balance. Avoid nephrotoxic medications to the extent possible. Medications to be dosed according to renal function. Monitor electrolytes and replace as needed ENDOCRINE: Maintain blood glucose between 100-180 at all times. Hypoglycemia protocol in place INFECTIOUS DISEASE: Trend temperature, WBC and procalcitonin level Follow cultures, deescalate antibiotics as soon as possible. Panculture if new onset fever ONCOLOGY/HEMATOLOGY/COAGULATION: Monitor for s/s of bleeding Monitor hemoglobin, coagulation studies as needed SKIN: Pressure ulcer prevention per facility protocol Specialty mattress ORTHO/REHAB: Continue PT/OT Prophylaxis: Continue GI and DVT prophylaxis Code Status: Full Resuscitation Disposition: TBD Other: Total patient care time exceeds 35 minutes excluding all procedures. MIGUEL GUTIERREZ NP May 21, 2025 14:12
--- NOTE | 2025-05-21 16:48 | PN ---
Events noted, patient is resting comfortably. He is not in any distress. Physical examination: Patient is sleeping comfortably, he is not in any distress. He is edentulous. Chest. Decreased air entry to bilateral lung bases, no abnormal breath sounds. Heart. S1-S2 irregular. Abdomen. Soft, nondistended. Extremities. Edema of all 4 extremities. Impression plan: 1. Acute hypoxic respiratory failure. 2. Metabolic encephalopathy. 3. Stage IV colon cancer with liver metastasis. 4. Pneumonia. 5. Essential hypertension. 6. Bladder cancer. 7. Atrial fibrillation. Patient is under hospice care, awaiting placement. Vitals/Labs Vital Signs Date Time Temp Pulse Resp B/P (MAP) Pulse Ox O2 Delivery O2 Flow Rate FiO2 05/21/25 12:00 97.9 82 18 164/68 92 Nasal Cannula 3.0 05/21/25 06:46 32 Medications Current Medications Ipratropium [place] 0.5 mg [id number] IH Last administered on 05/21/25at 11:24; Start 05/15/25 at 18:00; Stop 06/14/25 at 17:59 Guaifenesin/ Dextromethorphan 10 ml Q4H PRN PO Last administered on 05/20/25at 12:30; Start 05/15/25 at 16:00; Stop 06/14/25 at 15:59 Famotidine 20 mg BID IV Last administered on 05/21/25at 09:47; Start 05/15/25 at 21:00; Stop 06/14/25 at 20:59 Polyethylene Glycol 17 gm DAILY PRN PO; Start 05/15/25 at 16:00; Stop 06/14/25 at 15:59 Insulin Human Regular INSULIN SLIDING SCAL... ACHS SQ; Start 05/15/25 at 16:30; Stop 06/14/25 at 16:29 Cefepime HCl 2 gm Q8H IVPB; Start 05/15/25 at 16:00; Stop 05/15/25 at 16:01; Status DC Doxycycline Hyclate 250 ml @ 125 mls/hr Q12H IV Last administered on 05/15/25at 16:26; Start 05/15/25 at 16:00; Stop 05/16/25 at 00:36; Status DC Methylprednisolone Sodium Succinate 125 mg ONCE ONCE IVP Last administered on 05/15/25at 16:25; Start 05/15/25 at 16:00; Stop 05/15/25 at 16:01; Status DC Methylprednisolone Sodium Succinate 40 mg BID IVP Last administered on 05/21/25at 09:47; Start 05/15/25 at 21:00; Stop 06/14/25 at 20:59 Sodium Chloride 1,000 ml @ 50 mls/hr Q20H IV Last administered on 05/15/25at 16:26; Start 05/15/25 at 16:00; Stop 05/15/25 at 20:16; Status DC Cefepime HCl 2 gm Q12H IVPB Last administered on 05/15/25at 18:06; Start 05/15/25 at 16:30; Stop 05/16/25 at 04:37; Status DC Sodium Chloride 4 ml STK-MED ONCE IH Last administered on 05/15/25at 19:26; Start 05/15/25 at 18:21; Stop 05/15/25 at 18:22; Status DC Furosemide 40 mg ONCE ONCE IV Last administered on 05/15/25at 22:12; Start 05/15/25 at 20:30; Stop 05/15/25 at 20:37; Status DC Sodium Chloride 4 ml STK-MED ONCE IH Last administered on 05/15/25at 23:46; Start 05/15/25 at 22:56; Stop 05/15/25 at 22:56; Status DC Pharmacy Profile Note 1 each ONCE STAT [facility]; Start 05/16/25 at 00:32; Stop 05/16/25 at 00:42; Status DC Linezolid 300 ml @ 300 mls/hr Q12H IV Last administered on 05/16/25at 02:33; Start 05/16/25 at 01:00; Stop 05/16/25 at 08:55; Status DC Cefepime HCl 2 gm Q12H IVPB Last administered on 05/16/25at 05:55; Start 05/16/25 at 06:00; Stop 05/16/25 at 12:00; Status DC Sodium Chloride 4 ml STK-MED ONCE IH Last administered on 05/16/25at 06:44; Start 05/16/25 at 06:08; Stop 05/16/25 at 06:08; Status DC Ceftriaxone Sodium 2 gm Q24H IVPB; Start 05/16/25 at 09:00; Stop 05/16/25 at 08:56; Status DC Doxycycline Hyclate 250 ml @ 125 mls/hr BID IV Last administered on 05/21/25at 09:47; Start 05/16/25 at 09:00; Stop 05/26/25 at 08:59 Ceftriaxone Sodium 2 gm Q24H IVPB Last administered on 05/19/25at 15:08; Start 05/16/25 at 14:00; Stop 05/20/25 at 18:29; Status DC Pharmacy Profile Note 1 each AD MISC; Start 05/17/25 at 09:00; Stop 05/17/25 at 0 8:36; Status DC Apixaban 5 mg BID PO Last administered on 05/18/25at 21:17; Start 05/17/25 at 21:00; Stop 06/16/25 at 20:59 Bacitracin apply to left upper arm ... DAILY TP Last administered on 05/21/25at 09:47; Start 05/18/25 at 09:00; Stop 06/17/25 at 08:59 Wound Care/ Dressing Products apply to sacrum DAILY TP Last administered on 05/21/25at 09:47; Start 05/18/25 at 09:00; Stop 06/17/25 at 08:59 Haloperidol Lactate 2.5 mg ONCE PRN IM Last administered on 05/18/25at 22:25; Start 05/18/25 at 22:30; Stop 05/19/25 at 18:39; Status DC Sterile Water 10 ml STK-MED ONCE .ROUTE Last administered on 05/19/25at 16:20; Start 05/19/25 at 09:44; Stop 05/19/25 at 09:44; Status DC Ceftriaxone Sodium 2 gm Q24H IVPB Last administered on 05/20/25at 18:56; Start 05/20/25 at 18:30; Stop 05/30/25 at 18:29 JAY NAVARRETE MD May 21, 2025 16:48
[2025-05-22] VITALS (10 sets, daily range): BP systolic 133–154; BP diastolic 74–94; PULSE 83–89; RESP 18–22; TEMP 97.3–97.9; O2SAT 94–98
--- NOTE | 2025-05-22 11:20 | NUR ---
MD ROUNDS DR NAVARRETE WITH PATIENT FAMILY AT BEDSIDE. FAMILY AGREE TO COMFORT MEASURES
--- NOTE | 2025-05-22 11:28 | PN ---
Events noted, patient is resting comfortably. He is not in any distress. His brother and [id number] were at the bedside, requesting to stop all non comfort measures/medicines. Physical examination: Patient is sleeping comfortably, he is not in any distress. He is edentulous. Chest. Decreased air entry to bilateral lung bases, no abnormal breath sounds. Heart. S1-S2 irregular. Abdomen. Soft, nondistended. Extremities. Edema of all 4 extremities. Impression plan: 1. Acute hypoxic respiratory failure. 2. Metabolic encephalopathy. 3. Stage IV colon cancer with liver metastasis. 4. Pneumonia. 5. Essential hypertension. 6. Bladder cancer. 7. Atrial fibrillation. Patient is under hospice care, awaiting placement. We will stop antibiotics, fluids, Accu-Cheks, steroids. We will keep comfort measures only, added scopolamine patch, Zofran and morphine. Vitals/Labs Vital Signs Date Time Temp Pulse Resp B/P (MAP) Pulse Ox O2 Delivery O2 Flow Rate FiO2 05/22/25 08:00 97.3 89 18 154/94 94 Nasal Cannula 2.0 05/22/25 07:07 32 Medications Current Medications Ipratropium [place] 0.5 mg [id number] IH Last administered on 05/22/25at 07:06; Start 05/15/25 at 18:00; Stop 06/14/25 at 17:59 Guaifenesin/ Dextromethorphan 10 ml Q4H PRN PO Last administered on 05/21/25at 17:56; Start 05/15/25 at 16:00; Stop 06/14/25 at 15:59 Famotidine 20 mg BID IV Last administered on 05/22/25at 10:25; Start 05/15/25 at 21:00; Stop 06/14/25 at 20:59 Polyethylene Glycol 17 gm DAILY PRN PO; Start 05/15/25 at 16:00; Stop 06/14/25 at 15:59 Insulin Human Regular INSULIN SLIDING SCAL... ACHS SQ; Start 05/15/25 at 16:30; Stop 06/14/25 at 16:29 Cefepime HCl 2 gm Q8H IVPB; Start 05/15/25 at 16:00; Stop 05/15/25 at 16:01; Status DC Doxycycline Hyclate 250 ml @ 125 mls/hr Q12H IV Last administered on 05/15/25at 16:26; Start 05/15/25 at 16:00; Stop 05/16/25 at 00:36; Status DC Methylprednisolone Sodium Succinate 125 mg ONCE ONCE IVP Last administered on 05/15/25at 16:25; Start 05/15/25 at 16:00; Stop 05/15/25 at 16:01; Status DC Methylprednisolone Sodium Succinate 40 mg BID IVP Last administered on 05/22/25at 10:25; Start 05/15/25 at 21:00; Stop 06/14/25 at 20:59 Sodium Chloride 1,000 ml @ 50 mls/hr Q20H IV Last administered on 05/15/25at 16:26; Start 05/15/25 at 16:00; Stop 05/15/25 at 20:16; Status DC Cefepime HCl 2 gm Q12H IVPB Last administered on 05/15/25at 18:06; Start 05/15/25 at 16:30; Stop 05/16/25 at 04:37; Status DC Sodium Chloride 4 ml STK-MED ONCE IH Last administered on 05/15/25at 19:26; Start 05/15/25 at 18:21; Stop 05/15/25 at 18:22; Status DC Furosemide 40 mg ONCE ONCE IV Last administered on 05/15/25at 22:12; Start 05/15/25 at 20:30; Stop 05/15/25 at 20:37; Status DC Sodium Chloride 4 ml STK-MED ONCE IH Last administered on 05/15/25at 23:46; Start 05/15/25 at 22:56; Stop 05/15/25 at 22:56; Status DC Pharmacy Profile Note 1 each [place]CE [place] [facility] Start 05/16/25 at 00:32; Stop 05/16/25 at 00:42; Status DC Linezolid 300 ml @ 300 mls/hr Q12H IV Last administered on 05/16/25at 02:33; Start 05/16/25 at 01:00; Stop 05/16/25 at 08:55; Status DC Cefepime HCl 2 gm Q12H IVPB Last administered on 05/16/25at 05:55; Start 05/16/25 at 06:00; Stop 05/16/25 at 12:00; Status DC Sodium Chloride 4 ml STK-MED ONCE IH Last administered on 05/16/25at 06:44; Start 05/16/25 at 06:08; Stop 05/16/25 at 06:08; Status DC Ceftriaxone Sodium 2 gm Q24H IVPB; Start 05/16/25 at 09:00; Stop 05/16/25 at 08:56; Status DC Doxycycline Hyclate 250 ml @ 125 mls/hr BID IV Last administered on 05/22/25at 10:25; Start 05/16/25 at 09:00; Stop 05/26/25 at 08:59 Ceftriaxone Sodium 2 gm Q24H IVPB Last administered on 05/19/25at 15:08; Start 05/16/25 at 14:00; Stop 05/20/25 at 18:29; Status DC Pharmacy Profile Note 1 each [place] [facility] [place] Start 05/17/25 at 09:00; Stop 05/17/25 at 08:36; Status DC Apixaban 5 mg BID PO Last administered on 05/18/25at 21:17; Start 05/17/25 at 21:00; Stop 06/16/25 at 20:59 Bacitracin apply to left upper arm ... DAILY TP Last administered on 05/21/25at 20:39; Start 05/18/25 at 09:00; Stop 06/17/25 at 08:59 Wound Care/ Dressing Products apply to sacrum DAILY TP Last administered on 05/22/25at 10:25; Start 05/18/25 at 09:00; Stop 06/17/25 at 08:59 Haloperidol Lactate 2.5 mg ONCE PRN IM Last administered on 05/18/25at 22:25; Start 05/18/25 at 22:30; Stop 05/19/25 at 18:39; Status DC Sterile Water 10 ml STK-MED ONCE .ROUTE Last administered on 05/19/25at 16:20; Start 05/19/25 at 09:44; Stop 05/19/25 at 09:44; Status DC Ceftriaxone Sodium 2 gm Q24H IVPB Last administered on 05/21/25at 17:50; Start 05/20/25 at 18:30; Stop 05/30/25 at 18:29 JAY NAVARRETE MD May 22, 2025 11:28
[2025-05-22] MEDS: SCOPOLAMINE HYDROBROMIDE 1 EACH ADH..PATCH TD SCH (14:27)
[2025-05-22] MEDS ORDERED: COMPOUND NARC IV MISC 1 EACH IVSOLN MISC PRN (14:30)
[2025-05-22] MEDS ORDERED: COMPOUND PO NARCOTIC 1 EACH PO PRN (14:30)
--- NOTE | 2025-05-22 14:32 | PN ---
[facility] PROGRESS NOTE Date Patient Seen: May 22, 2025 Time of Visit: 14:32 Supervising Physician: Dr. Angel Mosquera Primary Care Physician: Dr. Luis Heaton Outpatient Specialists: [Dr. Burnett-oncology Inpatient Consults: Dr. Burnett (Oncology), Dr. Neftali Mcneill (GI) PROBLEM LIST: Acute hypoxemic respiratory failure Acute delirium, improved Acute metabolic encephalopathy Pneumonia, aspiration Sepsis present on admission Acute cystitis (+) ENTEROCOCCUS FAECALIS Fluid overload, POA Bilateral pleural effusion, POA NATI, POA Left lower extremity wound, POA Hypocalcemia, POA Medical debility and frailty,POA Primary Hypertension Stage IV colon cancer with metastases with recent chemotherapy on 04/26/2025 (pending 4 more treatments) History of bladder cancer with urostomy Failure to thrive LLE DVT with IVC filter Chronic Afib, was on DOAC Neuropathy AAA Octogenarian DNR status INTERVAL HISTORY: Patient assessed at bedside. Awake and alert today. Comfortable. Currently on 3LPM via NC. Very weak. Patient and family have opted for comfort measures. P ending hospice placement. Prognosis is poor. Plan: Comfort measures CM arranging hospice at hospice home Continue IV ABX and medical treatment REVIEW OF SYSTEMS: Unable to perform 12 point ROS due to patient being fatigued. Daughter at bedside and gave residual history and information. PHYSICAL EXAM: GENERAL: alert, weak, awake oriented x 2 HEENT: EOMI, Sclera non icteric, dry mucosa NECK: Supple, no JVD, trachea midline LUNGS: Diffused crackles bilaterally. No wheezes HEART: Regular rate and rhythm. Normal S1 and S2, without murmurs ABD: Abdomen soft, nontender. Bowel sounds present EXT: No clubbing cyanosis, 3+ pitting edema on BLE, LLE wound covered with dressing. Right chest mediport NEURO: Alert and oriented to person, follows commands Vital Signs (last 8hr) Date Time Temp Pulse Resp B/P (MAP) Pulse Ox O2 Delivery O2 Flow Rate FiO2 05/22/25 12:00 97.9 86 18 140/78 94 Nasal Cannula 2.0 05/22/25 11:40 88 18 05/22/25 11:39 18 N/Cannula Low lpm 3.0 32 05/22/25 08:00 97.3 89 18 154/94 94 Nasal Cannula 2.0 05/22/25 07:07 86 18 05/22/25 07:07 20 N/Cannula Low lpm 3.0 32 LABS: Chemistry Labs: Test 05/22/25 11:17 Range/Units Whole Blood Glucose 133 H 70-110 MG/DL DIAGNOSTICS / RADIOLOGY RESULTS: [ ] PLAN NEURO: Minimize central acting medications as possible. Maintain fall precautions, adequate lighting during the day PULMONARY: Supplemental 02 as needed. Maintain aspiration precautions at all times CARDIOVASCULAR: Follow hemodynamics. Vital signs per facility protocol GI & NUTRITION: Continue with nutritional support. Continue stool softeners and laxatives as needed. KIDNEYS & ELECTROLYTES: Strict monitoring of intake, output and overall fluid balance. Avoid nephrotoxic medications to the extent possible. Medications to be dosed according to renal function. Monitor electrolytes and replace as needed ENDOCRINE: Maintain blood glucose between 100-180 at all times. Hypoglycemia protocol in place INFECTIOUS DISEASE: Trend temperature, WBC and procalcitonin level Follow cultures, deescalate antibiotics as soon as possible. Panculture if new onset fever ONCOLOGY/HEMATOLOGY/COAGULATION: Monitor for s/s of bleeding Monitor hemoglobin, coagulation studies as needed SKIN: Pressure ulcer prevention per facility protocol Specialty mattress ORTHO/REHAB: Continue PT/OT Prophylaxis: Continue GI and DVT prophylaxis Code Status: Full Resuscitation Disposition: TBD Other: Total patient care time exceeds 35 minutes excluding all procedures. MIGUEL GUTIERREZ DEVELOPMENTAL TRAINING COUNSELOR May 22, 2025 14:32
[2025-05-22] MEDS: morPHINE20MG/ML SOLN 100 MG/5 ML ML PO PRN (14:37)
--- NOTE | 2025-05-22 16:00 | NUR ---
WOUND CARE WOUND CARE PROVIDED PATIENT TOLERATED WELL. DENIES ANY PAIN AT MOMENT
[2025-05-23] VITALS (10 sets, daily range): BP systolic 116–160; BP diastolic 68–94; PULSE 79–89; RESP 18–22; TEMP 97.5–98.7; O2SAT 96
--- NOTE | 2025-05-23 08:14 | PN ---
LOCATION: [facility]. SUBJECTIVE: The patient continues on his hospice-type terminal care. No family at the bedside. They wish comfort measures only, which is the patient's wish as well. PHYSICAL EXAMINATION: GENERAL: Shows that he is resting comfortably. VITAL SIGNS: Blood pressure 131/81, pulse 81, respirations 20. CHEST: Clear. ABDOMEN: Soft. EXTREMITIES: Show no edema. NEUROLOGIC: Intact. IMPRESSION: * Acute hypoxic respiratory failure. * Metabolic encephalopathy. * Stage IV colon cancer with liver metastasis. * Pneumonia. * Hypertension. * Bladder cancer. * AFib. PLAN: Stop all the laboratory. Stop the antibiotics. Comfort measures, DNR in effect. TID: [id number] RECEIPT: [id number]
--- NOTE | 2025-05-23 13:42 | NUR ---
HOSPICE UPDATE SW made contact with [facility] to follow up on placement for pt. As per Claire, RN pt is still on a waitlist with [facility] and case is being reviewed by the [facility] today and waiting to see if there could be an admission there tomorrow. Will contact when more information available
--- NOTE | 2025-05-23 14:19 | PN ---
GASTROENTEROLOGY PROGRESS NOTE Date of Visit: May 23, 2025 Time of Visit: 14:19 Events / Notes: [ ] Review of Systems: CONSTITUTIONAL: No malaise or change in sensation of wellbeing. ENMT: No rhinorrhea, otorrhea, sinus pain, ear ache. CARDIOVASCULAR: No angina, palpitations, orthopnea or paroxysmal dyspnea. RESPIRATORY: No SOB. GASTROINTESTINAL: No abdominal pain, nausea, vomiting, diarrhea, hematemesis, melena or change in the patient's habitual bowel movements consistency/number. GENITOURINARY: No dysuria, hematuria or change in bladder continence. MUSCULOSKELETAL: No new muscle pain or decrease in muscular strength. No new joint swelling, redness or tenderness. SKIN: No new rash. Physical Exam: GEN: Awake, alert, oriented in person, time and place, and in no acute distress. HEENT: No sinus tenderness. Tympanic membranes were not examined. No rhinorrhea. Oral pharyngeal mucosa is pink, moist and within normal limits. Neck is supple with no cervical lymphadenopathy, thyromegaly or JVD. CHEST: Inspection, palpation and percussion of the chest were unremarkable. Lung auscultation revealed normal breath sounds bilaterally. CARDIAC: PMI is within normal limits. Heart sounds are regular. Normal S1, S2. No gallop or murmur. ABD: Soft, non-tender and not distended. No peritoneal signs on palpation. No organomegaly. Normal bowel sounds. EXT: No cyanosis or clubbing. No edema. SKIN: Intact. No rashes. JOINTS: No evidence of synovitis or acute arthritis. NEURO: Alert and oriented to name, place and person. Cranial nerve examination is unremarkable. No focal motor deficits. Normal speech. Gait is normal. Strength is normal. Vital Signs (last 8hr) Date Time Temp Pulse Resp B/P (MAP) Pulse Ox O2 Delivery O2 Flow Rate FiO2 05/23/25 11:16 98.1 83 18 136/76 99 Nasal Cannula 2.0 05/23/25 08:15 96 Nasal Cannula* 3 32 05/23/25 07:55 89 18 N/Cannula Low lpm 3.0 32 05/23/25 07:47 98.1 81 18 131/80 96 Nasal Cannula 2.0 Laboratory: [ ] Laboratory: Test 05/22/25 11:17 Range/Units Whole Blood Glucose 133 H 70-110 MG/DL Current Medications Medications (Trade) Dose Ordered Sig/Stalin Route PRN Reason Start Time Stop Time Status Last Admin Dose Admin Apixaban (EliquIS) 5 mg BID PO 05/17/25 21:00 05/22/25 14:32 DC 05/18/25 21:17 5 MG Bacitracin (Bacitracin 28.4gm) apply to left upper arm ... DAILY TP 05/18/25 09:00 06/17/25 08:59 05/23/25 08:15 1 GM Cefepime HCl (MAXipime 2 gm vial) 2 gm Q12H IVPB 05/15/25 16:30 05/16/25 04:37 DC 05/15/25 18:06 2 GM Cefepime HCl (MAXipime 2 gm vial) 2 gm Q12H IVPB 05/16/25 06:00 05/16/25 12:00 DC 05/16/25 05:55 2 GM Cefepime HCl (MAXipime 2 gm vial) 2 gm Q8H IVPB 05/15/25 16:00 05/15/25 16:01 DC Ceftriaxone Sodium (Rocephin 2gm Inj) 2 gm Q24H IVPB 05/20/25 18:30 05/22/25 11:24 DC 05/21/25 17:50 2 GM Ceftriaxone Sodium (Rocephin 2gm Inj) 2 gm Q24H IVPB 05/16/25 09:00 05/16/25 08:56 DC Ceftriaxone Sodium (Rocephin 2gm Inj) 2 gm Q24H IVPB 05/16/25 14:00 05/20/25 18:29 DC 05/19/25 15:08 2 GM Doxycycline Hyclate 250 ml @ 125 mls/hr BID IV 05/16/25 09:00 05/22/25 11:24 DC 05/22/25 10:25 125 MLS/HR Doxycycline Hyclate 250 ml @ 125 mls/hr Q12H IV 05/15/25 16:00 05/16/25 00:36 DC 05/15/25 16:26 125 MLS/HR Famotidine (Pepcid 20mg Vial) 20 mg BID IV 05/15/25 21:00 05/22/25 11:24 DC 05/22/25 10:25 20 MG Guaifenesin/ Dextromethorphan (RobiTUSSin DM 200/20MG 10ML) 10 ml Q4H PRN PO COUGH 05/15/25 16:00 05/22/25 14:32 DC 05/21/25 17:56 10 ML Haloperidol Lactate (Haldol Inj) 2.5 mg ONCE PRN IM ANXIETY/AGITATION 05/18/25 22:30 05/19/25 18:39 DC 05/18/25 22:25 2.5 MG Home Med (Compound Po Narcotic) 0.25 ML PO Q4H PRN PO COMFORT CARE 05/22/25 14:30 06/21/25 14:29 Insulin Human Regular (humuLIN R 100 UNIT/ML 3ML) INSULIN SLIDING SCAL... ACHS SQ 05/15/25 16:30 05/22/25 11:24 DC Ipratropium Sarah Ann (AtrovENT UD) 0.5 mg [id number] IH 05/15/25 18:00 05/22/25 14:32 DC 05/22/25 11:30 0.5 MG Linezolid 300 ml @ 300 mls/hr Q12H IV 05/16/25 01:00 05/16/25 08:55 DC 05/16/25 02:33 300 MLS/HR Methylprednisolone Sodium Succinate (Solu-medROL 40MG) 40 mg BID IVP 05/15/25 21:00 05/22/25 11:24 DC 05/22/25 10:25 40 MG Morphine Sulfate (morPHINE 20MG/ ML SOLN) 5 mg Q4H PRN PO SEVERE PAIN (7-10) 05/22/25 11:30 05/27/25 11:29 05/22/25 14:37 5 MG Ondansetron HCl (zoFRAN 4MG ODT) 4 mg Q6H PRN SL NAUSEA/VOMITING 05/22/25 11:30 06/21/25 11:29 Pharmacy Profile Note (Lace Assessment) 1 each AD MISC 05/17/25 09:00 05/17/25 08:36 DC Pharmacy Profile Note (Pharmacy Communication) 1 each ONCE STAT MISC 05/16/25 00:32 05/16/25 00:42 DC Polyethylene Glycol (MIRalax 3350 17 GM POWD.PACK) 17 gm DAILY PRN PO CONSTIPATION 05/15/25 16:00 05/22/25 14:32 DC Scopolamine HBr (Transderm-Scop) 1 patch Q72H TD 05/22/25 11:30 06/21/25 11:29 05/22/25 14:27 1 PATCH Sodium Chloride 1,000 ml @ 50 mls/hr Q20H IV 05/15/25 16:00 05/15/25 20:16 DC 05/15/25 16:26 50 MLS/HR Wound Care/ Dressing Products (Venelex Ointment) apply to sacrum DAILY TP 05/18/25 09:00 06/17/25 08:59 05/23/25 08:15 1 GM Diagnostics / Radiology: [COPY/PASTE HERE IF NO REPORTS PLEASE DELETE SECTION] Assessment: Oropharyngeal dysphagia Feeding difficulties Colon cancer Plan: Scheduled for peg; however, patient defers KATHRYN SILVERMAN DAIRY FARMER May 23, 2025 14:19
--- NOTE | 2025-05-23 14:44 | NUR ---
SW received call from [facility] and she informed SW that pt was denied placement due to weight. Stated that facility would only consider 185lbs and below
--- NOTE | 2025-05-23 16:58 | PN ---
[facility] PROGRESS NOTE Date Patient Seen: May 23, 2025 Time of Visit: 16:57 Supervising Physician: Dr. Lionel Marshall Primary Care Physician: Dr. Luis Heaton Outpatient Specialists: [Dr. Burnett-oncology Inpatient Consults: Dr. Burnett (Oncology), Dr. Neftali Mcneill (GI) PROBLEM LIST: Acute hypoxemic respiratory failure Acute delirium, improved Acute metabolic encephalopathy Pneumonia, aspiration Sepsis present on admission Acute cystitis (+) ENTEROCOCCUS FAECALIS Fluid overload, POA Bilateral pleural effusion, POA NATI, POA Left lower extremity wound, POA Hypocalcemia, POA Medical debility and frailty,POA Primary Hypertension Stage IV colon cancer with metastases with recent chemotherapy on 04/26/2025 (pending 4 more treatments) History of bladder cancer with urostomy Failure to thrive LLE DVT with IVC filter Chronic Afib, was on DOAC Neuropathy AAA Octogenarian DNR status INTERVAL HISTORY: Patient assessed at bedside. Laying in bed comfortable. Currently on 3LPM via NC. Very weak. Patient and family have opted for comfort measures. Pending hospice placement. Prognosis is poor. Plan: Comfort measures CM arranging hospice at hospice home REVIEW OF SYSTEMS: Unable to perform 12 point ROS due to patient being fatigued. Daughter at bedside and gave residual history and information. PHYSICAL EXAM: GENERAL: alert, weak, awake oriented x 2 HEENT: EOMI, Sclera non icteric, dry mucosa NECK: Supple, no JVD, trachea midline LUNGS: Diffused crackles bilaterally. No wheezes HEART: Regular rate and rhythm. Normal S1 and S2, without murmurs ABD: Abdomen soft, nontender. Bowel sounds present EXT: No clubbing cyanosis, 3+ pitting edema on BLE, LLE wound covered with dressing. Right chest mediport NEURO: Alert and oriented to person, follows commands Vital Signs (last 8hr) Date Time Temp Pulse Resp B/P (MAP) Pulse Ox O2 Delivery O2 Flow Rate FiO2 05/23/25 15:59 98.1 79 18 116/74 90 Nasal Cannula 2.0 05/23/25 11:16 98.1 83 18 136/76 99 Nasal Cannula 2.0 LABS: Chemistry Labs: Test 05/22/25 11:17 Range/Units Whole Blood Glucose 133 H 70-110 MG/DL DIAGNOSTICS / RADIOLOGY RESULTS: [ ] PLAN NEURO: Minimize central acting medications as possible. Maintain fall precautions, adequate lighting during the day PULMONARY: Supplemental 02 as needed. Maintain aspiration precautions at all times CARDIOVASCULAR: Follow hemodynamics. Vital signs per facility protocol GI & NUTRITION: Continue with nutritional support. Continue stool softeners and laxatives as needed. KIDNEYS & ELECTROLYTES: Strict monitoring of intake, output and overall fluid balance. Avoid nephrotoxic medications to the extent possible. Medications to be dosed according to renal function. Monitor electrolytes and replace as needed ENDOCRINE: Maintain blood glucose between 100-180 at all times. Hypoglycemia protocol in place INFECTIOUS DISEASE: Trend temperature, WBC and procalcitonin level Follow cultures, deescalate antibiotics as soon as possible. Panculture if new onset fever ONCOLOGY/HEMATOLOGY/COAGULATION: Monitor for s/s of bleeding Monitor hemoglobin, coagulation studies as needed SKIN: Pressure ulcer prevention per facility protocol Specialty mattress ORTHO/REHAB: Continue PT/OT Prophylaxis: Continue GI and DVT prophylaxis Code Status: Full Resuscitation Disposition: TBD Other: Total patient care time exceeds 35 minutes excluding all procedures. MIGUEL MARSHALL NP May 23, 2025 16:58
[2025-05-24] VITALS (7 sets, daily range): BP systolic 102–137; BP diastolic 40–80; PULSE 69–88; RESP 19–20; TEMP 97.9–98.5; O2SAT 92–94
--- NOTE | 2025-05-24 07:59 | PN ---
LOCATION: 307. SUBJECTIVE: The patient remained stable overnight. He is comfortable. He is on nasal cannula oxygen and bedridden. There is no family here at the moment. He is very weak. REVIEW OF SYSTEMS: Unobtainable at the moment. PHYSICAL EXAMINATION: VITAL SIGNS: Blood pressure 137/76, pulse 69 and respirations 20. HEENT: Benign. CHEST: Showed decreased breath sounds. HEART: Regular rate and rhythm. ABDOMEN: Soft. EXTREMITIES: Showed edema. NEUROLOGIC: Confused. IMPRESSION: * Acute hypoxic respiratory failure. * Acute delirium, improved. * Acute metabolic encephalopathy. * Pneumonia. * Sepsis on admission. * Cystitis. * Bilateral pleural effusions. * Metastatic colon cancer, stage IV. * Liver metastasis. * Bladder cancer. * DVT, status post IVC filter. * AFib. * Neuropathy. * DNR status. PLAN: The patient is under hospice measures, comfort measures. He can be placed in a hospice facility if accepted. TID: [id number] RECEIPT: [id number]
--- NOTE | 2025-05-24 08:13 | NUR ---
UPDATE: Patient was denied placement at [facility] due to weight, pt is #4 on the waitlist at [facility]. Pt's son (ARON) Shawn should be coming into town today and as per hospice son will talk to other siblings to see if they can manage home hospice however right now it does not appear that they can manage his care at home right now
--- NOTE | 2025-05-24 10:19 | PN ---
GASTROENTEROLOGY PROGRESS NOTE Date of Visit: May 24, 2025 Time of Visit: 10:19 Events / Notes: [ ] Review of Systems: CONSTITUTIONAL: No malaise or change in sensation of wellbeing. ENMT: No rhinorrhea, otorrhea, sinus pain, ear ache. CARDIOVASCULAR: No angina, palpitations, orthopnea or paroxysmal dyspnea. RESPIRATORY: No SOB. GASTROINTESTINAL: No abdominal pain, nausea, vomiting, diarrhea, hematemesis, melena or change in the patient's habitual bowel movements consistency/number. GENITOURINARY: No dysuria, hematuria or change in bladder continence. MUSCULOSKELETAL: No new muscle pain or decrease in muscular strength. No new joint swelling, redness or tenderness. SKIN: No new rash. Physical Exam: GEN: Awake, alert, oriented in person, time and place, and in no acute distress. HEENT: No sinus tenderness. Tympanic membranes were not examined. No rhinorrhea. Oral pharyngeal mucosa is pink, moist and within normal limits. Neck is supple with no cervical lymphadenopathy, thyromegaly or JVD. CHEST: Inspection, palpation and percussion of the chest were unremarkable. Lung auscultation revealed normal breath sounds bilaterally. CARDIAC: PMI is within normal limits. Heart sounds are regular. Normal S1, S2. No gallop or murmur. ABD: Soft, non-tender and not distended. No peritoneal signs on palpation. No organomegaly. Normal bowel sounds. EXT: No cyanosis or clubbing. No edema. SKIN: Intact. No rashes. JOINTS: No evidence of synovitis or acute arthritis. NEURO: Alert and oriented to name, place and person. Cranial nerve examination is unremarkable. No focal motor deficits. Normal speech. Gait is normal. Strength is normal. Vital Signs (last 8hr) Date Time Temp Pulse Resp B/P (MAP) Pulse Ox O2 Delivery O2 Flow Rate FiO2 05/24/25 07:50 98.2 88 19 123/80 92 Nasal Cannula 3.0 05/24/25 07:10 85 20 N/Cannula Low lpm 3.0 32 05/24/25 03:50 98.4 69 20 137/76 93 Nasal Cannula 3.0 Laboratory: [ ] Laboratory: Test 05/22/25 11:17 Range/Units Whole Blood Glucose 133 H 70-110 MG/DL Current Medications Medications (Trade) Dose Ordered Sig/Stalin Route PRN Reason Start Time Stop Time Status Last Admin Dose Admin Apixaban (EliquIS) 5 mg BID PO 05/17/25 21:00 05/22/25 14:32 DC 05/18/25 21:17 5 MG Bacitracin (Bacitracin 28.4gm) apply to left upper arm ... DAILY TP 05/18/25 09:00 06/17/25 08:59 05/24/25 08:12 1 GM Cefepime HCl (MAXipime 2 gm vial) 2 gm Q12H IVPB 05/15/25 16:30 05/16/25 04:37 DC 05/15/25 18:06 2 GM Cefepime HCl (MAXipime 2 gm vial) 2 gm Q12H IVPB 05/16/25 06:00 05/16/25 12:00 DC 05/16/25 05:55 2 GM Cefepime HCl (MAXipime 2 gm vial) 2 gm Q8H IVPB 05/15/25 16:00 05/15/25 16:01 DC Ceftriaxone Sodium (Rocephin 2gm Inj) 2 gm Q24H IVPB 05/20/25 18:30 05/22/25 11:24 DC 05/21/25 17:50 2 GM Ceftriaxone Sodium (Rocephin 2gm Inj) 2 gm Q24H IVPB 05/16/25 09:00 05/16/25 08:56 DC Ceftriaxone Sodium (Rocephin 2gm Inj) 2 gm Q24H IVPB 05/16/25 14:00 05/20/25 18:29 DC 05/19/25 15:08 2 GM Doxycycline Hyclate 250 ml @ 125 mls/hr BID IV 05/16/25 09:00 05/22/25 11:24 DC 05/22/25 10:25 125 MLS/HR Doxycycline Hyclate 250 ml @ 125 mls/hr Q12H IV 05/15/25 16:00 05/16/25 00:36 DC 05/15/25 16:26 125 MLS/HR Famotidine (Pepcid 20mg Vial) 20 mg BID IV 05/15/25 21:00 05/22/25 11:24 DC 05/22/25 10:25 20 MG Guaifenesin/ Dextromethorphan (RobiTUSSin DM 200/20MG 10ML) 10 ml Q4H PRN PO COUGH 05/15/25 16:00 05/22/25 14:32 DC 05/21/25 17:56 10 ML Haloperidol Lactate (Haldol Inj) 2.5 mg ONCE PRN IM ANXIETY/AGITATION 05/18/25 22:30 05/19/25 18:39 DC 05/18/25 22:25 2.5 MG Home Med (Compound Po Narcotic) 0.25 ML PO Q4H PRN PO COMFORT CARE 05/22/25 14:30 06/21/25 14:29 Insulin Human Regular (humuLIN R 100 UNIT/ML 3ML) INSULIN SLIDING SCAL... ACHS SQ 05/15/25 16:30 05/22/25 11:24 DC Ipratropium [place] (AtrovENT UD) 0.5 mg [id number] IH 05/15/25 18:00 05/22/25 14:32 DC 05/22/25 11:30 0.5 MG Linezolid 300 ml @ 300 mls/hr Q12H IV 05/16/25 01:00 05/16/25 08:55 DC 05/16/25 02:33 300 MLS/HR Methylprednisolone Sodium Succinate (Solu-medROL 40MG) 40 mg BID IVP 05/15/25 21:00 05/22/25 11:24 DC 05/22/25 10:25 40 MG Morphine Sulfate (morPHINE 20MG/ ML SOLN) 5 mg Q4H PRN PO SEVERE PAIN (7-10) 05/22/25 11:30 05/27/25 11:29 05/24/25 04:05 5 MG Ondansetron HCl (zoFRAN 4MG ODT) 4 mg Q6H PRN SL NAUSEA/VOMITING 05/22/25 11:30 06/21/25 11:29 Pharmacy Profile Note (Lace Assessment) 1 each AD MISC 05/17/25 09:00 05/17/25 08:36 DC Pharmacy Profile Note (Pharmacy Communication) 1 each ONCE STAT MISC 05/16/25 00:32 05/16/25 00:42 DC Polyethylene Glycol (MIRalax 3350 17 GM POWD.PACK) 17 gm DAILY PRN PO CONSTIPATION 05/15/25 16:00 05/22/25 14:32 DC Scopolamine HBr (Transderm-Scop) 1 patch Q72H TD 05/22/25 11:30 06/21/25 11:29 05/22/25 14:27 1 PATCH Sodium Chloride 1,000 ml @ 50 mls/hr Q20H IV 05/15/25 16:00 05/15/25 20:16 DC 05/15/25 16:26 50 MLS/HR Wound Care/ Dressing Products (Venelex Ointment) apply to sacrum DAILY TP 05/18/25 09:00 06/17/25 08:59 05/24/25 08:12 1 GM Diagnostics / Radiology: [COPY/PASTE HERE IF NO REPORTS PLEASE DELETE SECTION] Assessment: Oropharyngeal dysphagia Feeding difficulties Colon cancer Plan: Scheduled for peg; however, patient defers KATHRYN SILVERMAN BLOCK STACKER May 24, 2025 10:19
--- NOTE | 2025-05-24 12:56 | NUR ---
[facility] Follow-up: Patient re-assessed by wound healing team. See wound assessment. Assessment and recommendations provided to primary nurse. Education provided. Wound care done. Addendum: 05/24/25 at 1548 by ANNE-MARIE JANSEN RN RN/ Amended: Links added.
--- NOTE | 2025-05-24 17:30 | PN ---
[facility] PROGRESS NOTE Date Patient Seen: May 24, 2025 Time of Visit: 1315 Supervising Physician: Dr. Toledo Primary Care Physician: Dr. Luis Heaton Outpatient Specialists: [Dr. Burnett-oncology Inpatient Consults: Dr. Burnett (Oncology), Dr. Neftali Mcneill (GI) PROBLEM LIST: Acute hypoxemic respiratory failure Acute delirium, improved Acute metabolic encephalopathy Pneumonia, aspiration Sepsis present on admission Acute cystitis (+) ENTEROCOCCUS FAECALIS Fluid overload, POA Bilateral pleural effusion, POA NATI, POA Left lower extremity wound, POA Hypocalcemia, POA Medical debility and frailty,POA Primary Hypertension Stage IV colon cancer with metastases with recent chemotherapy on 04/26/2025 (pending 4 more treatments) History of bladder cancer with urostomy Failure to thrive LLE DVT with IVC filter Chronic Afib, was on DOAC Neuropathy AAA Octogenarian DNR status INTERVAL HISTORY: Patient assessed at bedside. Laying in bed comfortable. Currently on 3LPM via NC. Very weak. Patient and family have opted for comfort measures. Pending hosp ice placement. Prognosis is poor. 05/24 patient was seen and examined by bedside no family present. Patient remains on3 L nasal cannula. Appears to be in no distress. Patient is DNR/DNI. Is comfort measures only. Pending hospice placement. Case management working on arrangements Plan: Comfort measures CM arranging hospice at hospice home REVIEW OF SYSTEMS: Unable to perform 12 point ROS due to patient being fatigued. PHYSICAL EXAM: GENERAL: Chronically ill 84-year-old male lying in bed no obvious signs and symptoms of distress Vital Signs (last 8hr) Date Time Temp Pulse Resp B/P (MAP) Pulse Ox O2 Delivery O2 Flow Rate FiO2 05/24/25 15:46 97.9 88 19 122/73 91 Nasal Cannula 3.0 05/24/25 11:30 98.4 82 19 102/40 90 Nasal Cannula 3.0 LABS: DIAGNOSTICS / RADIOLOGY RESULTS: na PLAN: comfort measures only pending hospice home Code Status: DNR/DNI Disposition: Pending hospice home Other: Case discussed with supervising physician plan of care agreed upon PAOLO ROAP May 24, 2025 17:30
[2025-05-24] MEDS: HONEY 1 APPL/ML TUBE TP SCH (20:58)
[2025-05-25] VITALS (9 sets, daily range): BP systolic 121–133; BP diastolic 67–80; PULSE 81–116; RESP 17–20; TEMP 97.5–98; O2SAT 92–95
--- NOTE | 2025-05-25 10:20 | PN ---
GASTROENTEROLOGY PROGRESS NOTE Date of Visit: May 25, 2025 Time of Visit: 10:20 Events / Notes: [ ] Review of Systems: CONSTITUTIONAL: No malaise or change in sensation of wellbeing. ENMT: No rhinorrhea, otorrhea, sinus pain, ear ache. CARDIOVASCULAR: No angina, palpitations, orthopnea or paroxysmal dyspnea. RESPIRATORY: No SOB. GASTROINTESTINAL: No abdominal pain, nausea, vomiting, diarrhea, hematemesis, melena or change in the patient's habitual bowel movements consistency/number. GENITOURINARY: No dysuria, hematuria or change in bladder continence. MUSCULOSKELETAL: No new muscle pain or decrease in muscular strength. No new joint swelling, redness or tenderness. SKIN: No new rash. Physical Exam: GEN: Awake, alert, oriented in person, time and place, and in no acute distress. HEENT: No sinus tenderness. Tympanic membranes were not examined. No rhinorrhea. Oral pharyngeal mucosa is pink, moist and within normal limits. Neck is supple with no cervical lymphadenopathy, thyromegaly or JVD. CHEST: Inspection, palpation and percussion of the chest were unremarkable. Lung auscultation revealed normal breath sounds bilaterally. CARDIAC: PMI is within normal limits. Heart sounds are regular. Normal S1, S2. No gallop or murmur. ABD: Soft, non-tender and not distended. No peritoneal signs on palpation. No organomegaly. Normal bowel sounds. EXT: No cyanosis or clubbing. No edema. SKIN: Intact. No rashes. JOINTS: No evidence of synovitis or acute arthritis. NEURO: Alert and oriented to name, place and person. Cranial nerve examination is unremarkable. No focal motor deficits. Normal speech. Gait is normal. Strength is normal. Vital Signs (last 8hr) Date Time Temp Pulse Resp B/P (MAP) Pulse Ox O2 Delivery O2 Flow Rate FiO2 05/25/25 07:55 98.1 86 17 133/76 93 Nasal Cannula 2.0 05/25/25 07:10 116 18 N/Cannula Low lpm 3.0 32 05/25/25 03:54 98.1 82 20 133/73 92 Nasal Cannula 2.0 05/25/25 03:12 87 18 N/Cannula Low lpm 3.0 32 Laboratory: [ ] Current Medications Medications (Trade) Dose Ordered Sig/Stalin Route PRN Reason Start Time Stop Time Status Last Admin Dose Admin Apixaban (EliquIS) 5 mg BID PO 05/17/25 21:00 05/22/25 14:32 DC 05/18/25 21:17 5 MG Bacitracin (Bacitracin 28.4gm) apply to left upper arm ... DAILY TP 05/18/25 09:00 06/17/25 08:59 05/24/25 08:12 1 GM Cefepime HCl (MAXipime 2 gm vial) 2 gm Q12H IVPB 05/15/25 16:30 05/16/25 04:37 DC 05/15/25 18:06 2 GM Cefepime HCl (MAXipime 2 gm vial) 2 gm Q12H IVPB 05/16/25 06:00 05/16/25 12:00 DC 05/16/25 05:55 2 GM Cefepime HCl (MAXipime 2 gm vial) 2 gm Q8H IVPB 05/15/25 16:00 05/15/25 16:01 DC Ceftriaxone Sodium (Rocephin 2gm Inj) 2 gm Q24H IVPB 05/20/25 18:30 05/22/25 11:24 DC 05/21/25 17:50 2 GM Ceftriaxone Sodium (Rocephin 2gm Inj) 2 gm Q24H IVPB 05/16/25 09:00 05/16/25 08:56 DC Ceftriaxone Sodium (Rocephin 2gm Inj) 2 gm Q24H IVPB 05/16/25 14:00 05/20/25 18:29 DC 05/19/25 15:08 2 GM Doxycycline Hyclate 250 ml @ 125 mls/hr BID IV 05/16/25 09:00 05/22/25 11:24 DC 05/22/25 10:25 125 MLS/HR Doxycycline Hyclate 250 ml @ 125 mls/hr Q12H IV 05/15/25 16:00 05/16/25 00:36 DC 05/15/25 16:26 125 MLS/HR Famotidine (Pepcid 20mg Vial) 20 mg BID IV 05/15/25 21:00 05/22/25 11:24 DC 05/22/25 10:25 20 MG Guaifenesin/ Dextromethorphan (RobiTUSSin DM 200/20MG 10ML) 10 ml Q4H PRN PO COUGH 05/15/25 16:00 05/22/25 14:32 DC 05/21/25 17:56 10 ML Haloperidol Lactate (Haldol Inj) 2.5 mg ONCE PRN IM ANXIETY/AGITATION 05/18/25 22:30 05/19/25 18:39 DC 05/18/25 22:25 2.5 MG Home Med (Compound Po Narcotic) 0.25 ML PO Q4H PRN PO COMFORT CARE 05/22/25 14:30 06/21/25 14:29 Insulin Human Regular (humuLIN R 100 UNIT/ML 3ML) INSULIN SLIDING SCAL... ACHS SQ 05/15/25 16:30 05/22/25 11:24 DC Ipratropium [place] (AtrovENT UD) 0.5 mg [id number] IH 05/15/25 18:00 05/22/25 14:32 DC 05/22/25 11:30 0.5 MG Leptospermum Honey (Medihoney) 1 appl AD TP 05/24/25 16:00 06/23/25 15:59 05/24/25 20:58 1 APPL Linezolid 300 ml @ 300 mls/hr Q12H IV 05/16/25 01:00 05/16/25 08:55 DC 05/16/25 02:33 300 MLS/HR Methylprednisolone Sodium Succinate (Solu-medROL 40MG) 40 mg BID IVP 05/15/25 21:00 05/22/25 11:24 DC 05/22/25 10:25 40 MG Morphine Sulfate (morPHINE 20MG/ ML SOLN) 5 mg Q4H PRN PO SEVERE PAIN (7-10) 05/22/25 11:30 05/27/25 11:29 05/25/25 00:23 5 MG Ondansetron HCl (zoFRAN 4MG ODT) 4 mg Q6H PRN SL NAUSEA/VOMITING 05/22/25 11:30 06/21/25 11:29 Pharmacy Profile Note (Lace Assessment) 1 each AD MISC 05/17/25 09:00 05/17/25 08:36 DC Pharmacy Profile Note (Pharmacy Communication) 1 each ONCE STAT MISC 05/16/25 00:32 05/16/25 00:42 DC Polyethylene Glycol (MIRalax 3350 17 GM POWD.PACK) 17 gm DAILY PRN PO CONSTIPATION 05/15/25 16:00 05/22/25 14:32 DC Scopolamine HBr (Transderm-Scop) 1 patch Q72H TD 05/22/25 11:30 06/21/25 11:29 05/22/25 14:27 1 PATCH Sodium Chloride 1,000 ml @ 50 mls/hr Q20H IV 05/15/25 16:00 05/15/25 20:16 DC 05/15/25 16:26 50 MLS/HR Wound Care/ Dressing Products (Venelex Ointment) apply to sacrum DAILY TP 05/18/25 09:00 06/17/25 08:59 05/24/25 08:12 1 GM Diagnostics / Radiology: [COPY/PASTE HERE IF NO REPORTS PLEASE DELETE SECTION] Assessment: Oropharyngeal dysphagia Feeding difficulties Colon cancer Plan: Scheduled for peg; however, patient defers KATHRYN SILVERMAN ELECTRICAL ELECTRONICS TECHNICIAN May 25, 2025 10:20
--- NOTE | 2025-05-25 12:00 | NUR ---
PATIENT WOUND CARE DONE TO BILATERAL UPPER EXTREMITIES, LOWER EXTREMITIES, AND SACRUM AREAS.
--- NOTE | 2025-05-25 15:00 | PN ---
SUBJECTIVE: The patient continues on hospice care. He is DNR. I am trying to find a place for him to go with hospice. He is on nasal cannula oxygen. He is on comfort measures. He appears quite peaceful. PHYSICAL EXAMINATION: GENERAL: Shows an elderly man. VITAL SIGNS: Blood pressure 133/73, pulse 82, respirations 20. CHEST: Clear. HEART: Regular rate. ABDOMEN: Soft. EXTREMITIES: Show no edema, intact. IMPRESSION: * Acute hypoxic respiratory failure. * Delirium, improved. * Metabolic encephalopathy, improved. * Pneumonia. * Sepsis on admission. * Cystitis. * Fluid overload. * Bilateral pleural effusions. * Metastatic colon cancer, stage IV to liver. * DVT. * IVC filter. * Bladder cancer. * Neuropathy. * AAA aneurysm. * DNR status. PLAN: Continue comfort measures. Stop drawing labs. The patient is suitable to be transferred to [facility] or SNF with Hospice as soon as accepted. TID: [id number] RECEIPT: [id number]
--- NOTE | 2025-05-25 16:36 | PN ---
[facility] PROGRESS NOTE Date Patient Seen: May 25, 2025 Time of Visit: 1151 Supervising Physician: Dr. Toledo Primary Care Physician: Dr. Luis Heaton Outpatient Specialists: [Dr. Burnett-oncology Inpatient Consults: Dr. Burnett (Oncology), Dr. Neftali Mcneill (GI) PROBLEM LIST: Acute hypoxemic respiratory failure Acute delirium, improved Acute metabolic encephalopathy Pneumonia, aspiration Sepsis present on admission Acute cystitis (+) ENTEROCOCCUS FAECALIS Fluid overload, POA Bilateral pleural effusion, POA NATI, POA Left lower extremity wound, POA Hypocalcemia, POA Medical debility and frailty,POA Primary Hypertension Stage IV colon cancer with metastases with recent chemotherapy on 04/26/2025 (pending 4 more treatments) History of bladder cancer with urostomy Failure to thrive LLE DVT with IVC filter Chronic Afib, was on DOAC Neuropathy AAA Octogenarian DNR status INTERVAL HISTORY: Patient assessed at bedside. Laying in bed comfortable. Currently on 3LPM via NC. Very weak. Patient and family have opted for comfort measures. Pending hosp ice placement. Prognosis is poor. 05/24 patient was seen and examined by bedside no family present. Patient remains on3 L nasal cannula. Appears to be in no distress. Patient is DNR/DNI. Is comfort measures only. Pending hospice placement. Case management working on arrangements 05/25 patient was seen and examined by bedside with family present. Patient appears to be in no distress. Patient remains comfort measures only. He is pending hospice placement. Family by bedside has no questions or concerns at this time. Case management working on arrangements Plan: Comfort measures CM arranging hospice at hospice home REVIEW OF SYSTEMS: Unable to obtain PHYSICAL EXAM: GENERAL: Chronically ill 84-year-old male lying in bed no obvious signs and symptoms of distress Vital Signs (last 8hr) Date Time Temp Pulse Resp B/P (MAP) Pulse Ox O2 Delivery O2 Flow Rate FiO2 05/25/25 11:46 97.5 83 17 125/80 93 Nasal Cannula 2.0 LABS: DIAGNOSTICS / RADIOLOGY RESULTS: na PLAN: comfort measures only pending hospice home Code Status: DNR/DNI Disposition: Pending hospice home Other: Case discussed with supervising physician plan of care agreed upon PAOLO ROA BINDERY CUTTER OPERATOR May 25, 2025 16:36
[2025-05-25] MEDS: GLYCOPYRROLATE 0.2 MG/ML 5 ML VIAL IVP PRN (18:00)
[2025-05-26] VITALS (8 sets, daily range): BP systolic 92–138; BP diastolic 43–77; PULSE 68–97; RESP 16–26; TEMP 97.5–97.6; O2SAT 92–97
--- NOTE | 2025-05-26 07:40 | PN ---
LOCATION: 307. SUBJECTIVE: The patient continues on hospice comfort care. He is on nasal cannula oxygen. There is no family here. He is pending hospice placement. He is DNR and DNI. PHYSICAL EXAMINATION: GENERAL: Shows an elderly man. He is quite peaceful, lying on his side on nasal cannula oxygen. VITAL SIGNS: Blood pressure 138/63, pulse 68, respirations 20. HEENT: Benign. CHEST: Decreased breath sounds. HEART: Regular rate and rhythm. ABDOMEN: Soft. EXTREMITIES: No edema. NEUROLOGIC: Awake. IMPRESSION: * Acute hypoxic respiratory failure. * Acute delirium. * Acute metabolic encephalopathy. * Pneumonia. * Sepsis on admission. * Cystitis. * Fluid overload. * Acute kidney injury. * Left lower extremity wound. * Hypertension. * Stage IV colon cancer metastasis to liver. * Bladder cancer. * Failure to thrive. * Deep vein thrombosis. * Atrial fibrillation. * Neuropathy. * AAA aneurysm. * DNR status. PLAN: Continue comfort measures. We are simply waiting for hospice placement. He is DNR/DNI. TID: [id number] RECEIPT: [id number]
--- NOTE | 2025-05-26 12:03 | NUR ---
MINOR followed up with ZAHRAA Thomas from [facility] to follow up on DC plan. As of 05/26 pt is still #4 on the waitlist for [facility]. SonShawn states that they will wait for a space to become available due to them not being able to take pt home and care of him there. Martha states that she will be frequently checking in with family and will update us once a bed becomes available or if anything changes.
--- NOTE | 2025-05-26 14:07 | PN ---
[facility] PROGRESS NOTE Date Patient Seen: May 26, 2025 Time of Visit: 1130 Supervising Physician: Dr. Toledo Primary Care Physician: Dr. Luis Heaton Outpatient Specialists: [Dr. Burnett-oncology Inpatient Consults: Dr. Burnett (Oncology), Dr. Neftali Mcneill (GI) PROBLEM LIST: Acute hypoxemic respiratory failure Acute delirium, improved Acute metabolic encephalopathy Pneumonia, aspiration Sepsis present on admission Acute cystitis (+) ENTEROCOCCUS FAECALIS Fluid overload, POA Bilateral pleural effusion, POA NATI, POA Left lower extremity wound, POA Hypocalcemia, POA Medical debility and frailty,POA Primary Hypertension Stage IV colon cancer with metastases with recent chemotherapy on 04/26/2025 (pending 4 more treatments) History of bladder cancer with urostomy Failure to thrive LLE DVT with IVC filter Chronic Afib, was on DOAC Neuropathy AAA Octogenarian DNR status INTERVAL HISTORY: Patient assessed at bedside. Laying in bed comfortable. Currently on 3LPM via NC. Very weak. Patient and family have opted for comfort measures. Pending hosp ice placement. Prognosis is poor. 05/24 patient was seen and examined by bedside no family present. Patient remains on3 L nasal cannula. Appears to be in no distress. Patient is DNR/DNI. Is comfort measures only. Pending hospice placement. Case management working on arrangements 05/25 patient was seen and examined by bedside with family present. Patient appears to be in no distress. Patient remains comfort measures only. He is pending hospice placement. Family by bedside has no questions or concerns at this time. Case management working on arrangements 05/26 patient was seen and examined by bedside family present. Patient appears comfortable no distress. As per family by bedside they have no concerns at this time. Patient remains comfort measures only currently pending hospice placement. Case management working arrangements Plan: Comfort measures CM arranging hospice at hospice home REVIEW OF SYSTEMS: Unable to obtain PHYSICAL EXAM: GENERAL: Chronically ill 84-year-old male lying in bed no obvious signs and symptoms of distress Vital Signs (last 8hr) Date Time Temp Pulse Resp B/P (MAP) Pulse Ox O2 Delivery O2 Flow Rate FiO2 05/26/25 07:56 97.5 89 17 118/77 92 Nasal Cannula 4.0 05/26/25 06:35 68 18 N/Cannula Low lpm 3.0 32 LABS: DIAGNOSTICS / RADIOLOGY RESULTS: na PLAN: comfort measures only pending hospice home Code Status: DNR/DNI Disposition: Pending hospice home Other: Case discussed with supervising physician plan of care agreed upon PAOLO ROA MACHINE HOOP MAKER HELPER May 26, 2025 14:07
--- NOTE | 2025-05-26 16:48 | PN ---
GASTROENTEROLOGY PROGRESS NOTE Date of Visit: May 26, 2025 Time of Visit: 16:48 Events / Notes: [ ] Review of Systems: CONSTITUTIONAL: No malaise or change in sensation of wellbeing. ENMT: No rhinorrhea, otorrhea, sinus pain, ear ache. CARDIOVASCULAR: No angina, palpitations, orthopnea or paroxysmal dyspnea. RESPIRATORY: No SOB. GASTROINTESTINAL: No abdominal pain, nausea, vomiting, diarrhea, hematemesis, melena or change in the patient's habitual bowel movements consistency/number. GENITOURINARY: No dysuria, hematuria or change in bladder continence. MUSCULOSKELETAL: No new muscle pain or decrease in muscular strength. No new joint swelling, redness or tenderness. SKIN: No new rash. Physical Exam: GEN: Awake, alert, oriented in person, time and place, and in no acute distress. HEENT: No sinus tenderness. Tympanic membranes were not examined. No rhinorrhea. Oral pharyngeal mucosa is pink, moist and within normal limits. Neck is supple with no cervical lymphadenopathy, thyromegaly or JVD. CHEST: Inspection, palpation and percussion of the chest were unremarkable. Lung auscultation revealed normal breath sounds bilaterally. CARDIAC: PMI is within normal limits. Heart sounds are regular. Normal S1, S2. No gallop or murmur. ABD: Soft, non-tender and not distended. No peritoneal signs on palpation. No organomegaly. Normal bowel sounds. EXT: No cyanosis or clubbing. No edema. SKIN: Intact. No rashes. JOINTS: No evidence of synovitis or acute arthritis. NEURO: Alert and oriented to name, place and person. Cranial nerve examination is unremarkable. No focal motor deficits. Normal speech. Gait is normal. Strength is normal. Laboratory: [ ] Current Medications Medications (Trade) Dose Ordered Sig/Stalin Route PRN Reason Start Time Stop Time Status Last Admin Dose Admin Apixaban (EliquIS) 5 mg BID PO 05/17/25 21:00 05/22/25 14:32 DC 05/18/25 21:17 5 MG Bacitracin (Bacitracin 28.4gm) apply to left upper arm ... DAILY TP 05/18/25 09:00 06/17/25 08:59 05/26/25 08:48 1 GM Cefepime HCl (MAXipime 2 gm vial) 2 gm Q12H IVPB 05/15/25 16:30 05/16/25 04:37 DC 05/15/25 18:06 2 GM Cefepime HCl (MAXipime 2 gm vial) 2 gm Q12H IVPB 05/16/25 06:00 05/16/25 12:00 DC 05/16/25 05:55 2 GM Cefepime HCl (MAXipime 2 gm vial) 2 gm Q8H IVPB 05/15/25 16:00 05/15/25 16:01 DC Ceftriaxone Sodium (Rocephin 2gm Inj) 2 gm Q24H IVPB 05/20/25 18:30 05/22/25 11:24 DC 05/21/25 17:50 2 GM Ceftriaxone Sodium (Rocephin 2gm Inj) 2 gm Q24H IVPB 05/16/25 09:00 05/16/25 08:56 DC Ceftriaxone Sodium (Rocephin 2gm Inj) 2 gm Q24H IVPB 05/16/25 14:00 05/20/25 18:29 DC 05/19/25 15:08 2 GM Doxycycline Hyclate 250 ml @ 125 mls/hr BID IV 05/16/25 09:00 05/22/25 11:24 DC 05/22/25 10:25 125 MLS/HR Doxycycline Hyclate 250 ml @ 125 mls/hr Q12H IV 05/15/25 16:00 05/16/25 00:36 DC 05/15/25 16:26 125 MLS/HR Famotidine (Pepcid 20mg Vial) 20 mg BID IV 05/15/25 21:00 05/22/25 11:24 DC 05/22/25 10:25 20 MG Glycopyrrolate (Robinul) 0.4 mg Q4H PRN IVP SECRETIONS 05/25/25 14:30 06/24/25 14:29 05/26/25 08:44 0.4 MG Guaifenesin/ Dextromethorphan (RobiTUSSin DM 200/20MG 10ML) 10 ml Q4H PRN PO COUGH 05/15/25 16:00 05/22/25 14:32 DC 05/21/25 17:56 10 ML Haloperidol Lactate (Haldol Inj) 2.5 mg ONCE PRN IM ANXIETY/AGITATION 05/18/25 22:30 05/19/25 18:39 DC 05/18/25 22:25 2.5 MG Home Med (Compound Po Narcotic) 0.25 ML PO Q4H PRN PO COMFORT CARE 05/22/25 14:30 06/21/25 14:29 Insulin Human Regular (humuLIN R 100 UNIT/ML 3ML) INSULIN SLIDING SCAL... ACHS SQ 05/15/25 16:30 05/22/25 11:24 DC Ipratropium [place] (AtrovENT UD) 0.5 mg [id number] IH 05/15/25 18:00 05/22/25 14:32 DC 05/22/25 11:30 0.5 MG Leptospermum Honey (Medihoney) 1 appl AD TP 05/24/25 16:00 06/23/25 15:59 05/24/25 20:58 1 APPL Linezolid 300 ml @ 300 mls/hr Q12H IV 05/16/25 01:00 05/16/25 08:55 DC 05/16/25 02:33 300 MLS/HR Methylprednisolone Sodium Succinate (Solu-medROL 40MG) 40 mg BID IVP 05/15/25 21:00 05/22/25 11:24 DC 05/22/25 10:25 40 MG Morphine Sulfate (morPHINE 20MG/ ML SOLN) 5 mg Q4H PRN PO SEVERE PAIN (7-10) 05/22/25 11:30 05/25/25 11:19 DC 05/25/25 00:23 5 MG Morphine Sulfate (morPHINE 2MG SYG) 0.5 mg Q2HPRN PRN IVP SHORTNESS OF BREATH 05/25/25 11:30 06/01/25 11:29 05/26/25 16:18 0.5 MG Morphine Sulfate (morPHINE 2MG SYG) 0.5 mg Q2HPRN PRN IVP PAIN LEVEL 7 TO 10 05/25/25 11:30 06/01/25 11:29 Ondansetron HCl (zoFRAN 4MG ODT) 4 mg Q6H PRN SL NAUSEA/VOMITING 05/22/25 11:30 06/21/25 11:29 Pharmacy Profile Note (Lace Assessment) 1 each AD MISC 05/17/25 09:00 05/17/25 08:36 DC Pharmacy Profile Note (Pharmacy Communication) 1 each ONCE STAT MISC 05/16/25 00:32 05/16/25 00:42 DC Polyethylene Glycol (MIRalax 3350 17 GM POWD.PACK) 17 gm DAILY PRN PO CONSTIPATION 05/15/25 16:00 05/22/25 14:32 DC Scopolamine HBr (Transderm-Scop) 1 patch Q72H TD 05/22/25 11:30 06/21/25 11:29 05/25/25 10:50 1 PATCH Sodium Chloride 1,000 ml @ 50 mls/hr Q20H IV 05/15/25 16:00 05/15/25 20:16 DC 05/15/25 16:26 50 MLS/HR Wound Care/ Dressing Products (Venelex Ointment) apply to sacrum DAILY TP 05/18/25 09:00 06/17/25 08:59 05/26/25 08:47 1 GM Diagnostics / Radiology: [COPY/PASTE HERE IF NO REPORTS PLEASE DELETE SECTION] Assessment: Oropharyngeal dysphagia Feeding difficulties Colon cancer Plan: Scheduled for peg; however, patient defers KATHRYN SILVERMAN RN PROGRESSIVE CARE UNIT May 26, 2025 16:48
--- NOTE | 2025-05-26 20:41 | NUR ---
patient satting 75% on 4L roberto JOHNSON bedspread inspector notified new orders received for stat ABG and CXR, bipap settings to be titrated to ABG results. respiratory team notified at this time.
[2025-05-26 21:02] LABS: ABG BASE EXCESS -7.1 mmol/L (-2.0-3.0); ABG HCO3 19.7 mmol/L (21.0-28.0); ABG OXYGEN SATURATION 88.5 % (94.0-98.0); ABG PCO2 44 mmHg (35-48); ABG PH 7.266 (7.350-7.450); DEVICE COMMENT LR RN AMANDA; PO2, ARTERIAL BG 62.1 mmHg (83.0-108.0); TEMPERATURE, CELSIUS BG 37.0 CELSIUS (35.5-37.0); VENT MODE, BG NC,PLACED NRBM (ROOM AIR)
--- NOTE | 2025-05-26 22:08 | HMCIMG ---
EXAM: CR Chest, 1 view CLINICAL HISTORY: Decreased oxygen saturation. COMPARISON: Chest radiograph dated 05/19/2025. FINDINGS: Diffuse airspace disease in the mid to lower zones and small pleural effusions bilaterally, more pronounced on the left side. Mild diffuse interstitial edema. The right side Mediport catheter tip terminates around the distal SVC. No pneumothorax. Stable cardiac size. No acute osseous abnormality. IMPRESSION: Diffuse airspace disease in the mid to lower zones and small pleural effusions bilaterally, more pronounced on the left side. Mild diffuse interstitial edema. The findings are new compared to the previous chest radiograph dated 05/19/2025. /Hoffman
[2025-05-27 00:41] VITALS: PULSE 85; RESP 26; O2SAT 98
--- NOTE | 2025-05-27 03:15 | NUR ---
PERFORMED WOUND CARE DRESSINGS AT THIS TIME TO BILATERAL ARMS AND LEGS. PATIENT BEING REPOSITIONED Q 2 HOURS. WOUND CARE DONE ORDERED. CONTINUING TO MONITOR PATIENT.
[2025-05-27 07:45] VITALS: PULSE 89; RESP 25; O2SAT 98
--- NOTE | 2025-05-27 07:46 | PN ---
LOCATION: 307. SUBJECTIVE: The patient remains comfortable on nasal cannula oxygen. He is weak pending hospice placement, DNR and DNI. REVIEW OF SYSTEMS: Unobtainable this morning. PHYSICAL EXAMINATION: GENERAL: Shows elderly man. VITAL SIGNS: Blood pressure 92/43, pulse 97, respirations 20. HEENT: Benign. CHEST: Clear. ABDOMEN: Soft. EXTREMITIES: No edema. NEUROLOGIC: He is peaceful. IMPRESSION: * The patient has acute hypoxic respiratory failure. * Delirium, improved. * Encephalopathy, improved. * Pneumonia on admission. * Sepsis on admission. * Cystitis on admission. * Fluid overload. * Bilateral pleural effusion. * Acute kidney injury. * Stage IV terminal colon cancer, Mets to liver. * Bladder cancer, status post remote urostomy. * Deep vein thrombosis of lower extremity, status post IVC filter. * Atrial fibrillation. * Neuropathy. * Elderly age. PLAN: The patient is appropriate for transfer to hospice facility. His DNR/DNI is quite comfortable. TID: [id number] RECEIPT: [id number]
[2025-05-27 08:00] VITALS: BP 129/81; PULSE 46; RESP 21
--- NOTE | 2025-05-27 08:08 | PN ---
GASTROENTEROLOGY PROGRESS NOTE Date of Visit: May 27, 2025 Time of Visit: 08:08 Events / Notes: [ ] Review of Systems: CONSTITUTIONAL: No malaise or change in sensation of wellbeing. ENMT: No rhinorrhea, otorrhea, sinus pain, ear ache. CARDIOVASCULAR: No angina, palpitations, orthopnea or paroxysmal dyspnea. RESPIRATORY: No SOB. GASTROINTESTINAL: No abdominal pain, nausea, vomiting, diarrhea, hematemesis, melena or change in the patient's habitual bowel movements consistency/number. GENITOURINARY: No dysuria, hematuria or change in bladder continence. MUSCULOSKELETAL: No new muscle pain or decrease in muscular strength. No new joint swelling, redness or tenderness. SKIN: No new rash. Physical Exam: GEN: Awake, alert, oriented in person, time and place, and in no acute distress. HEENT: No sinus tenderness. Tympanic membranes were not examined. No rhinorrhea. Oral pharyngeal mucosa is pink, moist and within normal limits. Neck is supple with no cervical lymphadenopathy, thyromegaly or JVD. CHEST: Inspection, palpation and percussion of the chest were unremarkable. Lung auscultation revealed normal breath sounds bilaterally. CARDIAC: PMI is within normal limits. Heart sounds are regular. Normal S1, S2. No gallop or murmur. ABD: Soft, non-tender and not distended. No peritoneal signs on palpation. No organomegaly. Normal bowel sounds. EXT: No cyanosis or clubbing. No edema. SKIN: Intact. No rashes. JOINTS: No evidence of synovitis or acute arthritis. NEURO: Alert and oriented to name, place and person. Cranial nerve examination is unremarkable. No focal motor deficits. Normal speech. Gait is normal. Strength is normal. Vital Signs (last 8hr) Date Time Temp Pulse Resp B/P (MAP) Pulse Ox O2 Delivery O2 Flow Rate FiO2 05/27/25 07:45 89 25 80 05/27/25 00:41 85 26 80 Laboratory: [ ] Laboratory: Test 05/26/25 21:00 Range/Units Blood Gas Specimen Type Arterial Arterial Blood pH 7.266 L 7.350-7.450 Arterial Blood Partial Pressure CO2 44 35-48 mmHg Arterial Blood Partial Pressure O2 62.1 L 83.0-108.0 mmHg Arterial Blood HCO3 19.7 L 21.0-28.0 mmol/L Arterial Blood Oxygen Saturation 88.5 L 94.0-98.0 % Arterial Blood Base Excess -7.1 L -2.0-3.0 mmol/L Blood Gas Temperature 37.0 35.5-37.0 CELSIUS Blood Gas Flow-by 4.00 0.00-15.00 L/min Blood Gas Vent Mode NC,PLACED NRBM ROOM AIR FiO2 36.0 % Blood Gas PEEP 5 cm H2O Blood Gas Specimen Comment LR ZAHRAA DA SILVA Current Medications Medications (Trade) Dose Ordered Sig/Stalin Route PRN Reason Start Time Stop Time Status Last Admin Dose Admin Apixaban (EliquIS) 5 mg BID PO 05/17/25 21:00 05/22/25 14:32 DC 05/18/25 21:17 5 MG Bacitracin (Bacitracin 28.4gm) apply to left upper arm ... DAILY TP 05/18/25 09:00 06/17/25 08:59 05/26/25 08:48 1 GM Cefepime HCl (MAXipime 2 gm vial) 2 gm Q12H IVPB 05/15/25 16:30 05/16/25 04:37 DC 05/15/25 18:06 2 GM Cefepime HCl (MAXipime 2 gm vial) 2 gm Q12H IVPB 05/16/25 06:00 05/16/25 12:00 DC 05/16/25 05:55 2 GM Cefepime HCl (MAXipime 2 gm vial) 2 gm Q8H IVPB 05/15/25 16:00 05/15/25 16:01 DC Ceftriaxone Sodium (Rocephin 2gm Inj) 2 gm Q24H IVPB 05/20/25 18:30 05/22/25 11:24 DC 05/21/25 17:50 2 GM Ceftriaxone Sodium (Rocephin 2gm Inj) 2 gm Q24H IVPB 05/16/25 09:00 05/16/25 08:56 DC Ceftriaxone Sodium (Rocephin 2gm Inj) 2 gm Q24H IVPB 05/16/25 14:00 05/20/25 18:29 DC 05/19/25 15:08 2 GM Doxycycline Hyclate 250 ml @ 125 mls/hr BID IV 05/16/25 09:00 05/22/25 11:24 DC 05/22/25 10:25 125 MLS/HR Doxycycline Hyclate 250 ml @ 125 mls/hr Q12H IV 05/15/25 16:00 05/16/25 00:36 DC 05/15/25 16:26 125 MLS/HR Famotidine (Pepcid 20mg Vial) 20 mg BID IV 05/15/25 21:00 05/22/25 11:24 DC 05/22/25 10:25 20 MG Glycopyrrolate (Robinul) 0.4 mg Q4H PRN IVP SECRETIONS 05/25/25 14:30 06/24/25 14:29 05/26/25 08:44 0.4 MG Guaifenesin/ Dextromethorphan (RobiTUSSin DM 200/20MG 10ML) 10 ml Q4H PRN PO COUGH 05/15/25 16:00 05/22/25 14:32 DC 05/21/25 17:56 10 ML Haloperidol Lactate (Haldol Inj) 2.5 mg ONCE PRN IM ANXIETY/AGITATION 05/18/25 22:30 05/19/25 18:39 DC 05/18/25 22:25 2.5 MG Home Med (Compound Po Narcotic) 0.25 ML PO Q4H PRN PO COMFORT CARE 05/22/25 14:30 06/21/25 14:29 Insulin Human Regular (humuLIN R 100 UNIT/ML 3ML) INSULIN SLIDING SCAL... ACHS SQ 05/15/25 16:30 05/22/25 11:24 DC Ipratropium [place] (AtrovENT UD) 0.5 mg [id number] IH 05/15/25 18:00 05/22/25 14:32 DC 05/22/25 11:30 0.5 MG Leptospermum [facility]) 1 appl AD TP 05/24/25 16:00 06/23/25 15:59 05/24/25 20:58 1 APPL Linezolid 300 ml @ 300 mls/hr Q12H IV 05/16/25 01:00 05/16/25 08:55 DC 05/16/25 02:33 300 MLS/HR Methylprednisolone Sodium Succinate (Solu-medROL 40MG) 40 mg BID IVP 05/15/25 21:00 05/22/25 11:24 DC 05/22/25 10:25 40 MG Morphine Sulfate (morPHINE 20MG/ ML SOLN) 5 mg Q4H PRN PO SEVERE PAIN (7-10) 05/22/25 11:30 05/25/25 11:19 DC 05/25/25 00:23 5 MG Morphine Sulfate (morPHINE 2MG SYG) 0.5 mg Q2HPRN PRN IVP SHORTNESS OF BREATH 05/25/25 11:30 06/01/25 11:29 05/26/25 16:18 0.5 MG Morphine Sulfate (morPHINE 2MG SYG) 0.5 mg Q2HPRN PRN IVP PAIN LEVEL 7 TO 10 05/25/25 11:30 06/01/25 11:29 Ondansetron HCl (zoFRAN 4MG ODT) 4 mg Q6H PRN SL NAUSEA/VOMITING 05/22/25 11:30 06/21/25 11:29 Pharmacy Profile Note (Lace Assessment) 1 each AD MISC 05/17/25 09:00 05/17/25 08:36 DC Pharmacy Profile Note (Pharmacy Communication) 1 each ONCE STAT MISC 05/16/25 00:32 05/16/25 00:42 DC Polyethylene Glycol (MIRalax 3350 17 GM POWD.PACK) 17 gm DAILY PRN PO CONSTIPATION 05/15/25 16:00 05/22/25 14:32 DC Scopolamine HBr (Transderm-Scop) 1 patch Q72H TD 05/22/25 11:30 06/21/25 11:29 05/25/25 10:50 1 PATCH Sodium Chloride 1,000 ml @ 50 mls/hr Q20H IV 05/15/25 16:00 05/15/25 20:16 DC 05/15/25 16:26 50 MLS/HR Wound Care/ Dressing Products (Venelex Ointment) apply to sacrum DAILY TP 05/18/25 09:00 06/17/25 08:59 05/26/25 08:47 1 GM Diagnostics / Radiology: [COPY/PASTE HERE IF NO REPORTS PLEASE DELETE SECTION] Assessment: Oropharyngeal dysphagia Feeding difficulties Colon cancer Plan: Scheduled for peg; however, patient defers KATHRYN SILVERMAN [employer] ASSEMBLER May 27, 2025 08:08
[2025-05-27 12:00] VITALS: PULSE 74; RESP 24; O2SAT 88
--- NOTE | 2025-05-27 18:35 | PN ---
[facility] PROGRESS NOTE Date Patient Seen: May 27, 2025 Time of Visit: 1132 Supervising Physician: Dr. Toledo Primary Care Physician: Dr. Luis Heaton Outpatient Specialists: [Dr. Burnett-oncology Inpatient Consults: Dr. Burnett (Oncology), Dr. Neftali Mcneill (GI) PROBLEM LIST: Acute hypoxemic respiratory failure Acute delirium, improved Acute metabolic encephalopathy Pneumonia, aspiration Sepsis present on admission Acute cystitis (+) ENTEROCOCCUS FAECALIS Fluid overload, POA Bilateral pleural effusion, POA NATI, POA Left lower extremity wound, POA Hypocalcemia, POA Medical debility and frailty,POA Primary Hypertension Stage IV colon cancer with metastases with recent chemotherapy on 04/26/2025 (pending 4 more treatments) History of bladder cancer with urostomy Failure to thrive LLE DVT with IVC filter Chronic Afib, was on DOAC Neuropathy AAA Octogenarian DNR status INTERVAL HISTORY: Patient assessed at bedside. Laying in bed comfortable. Currently on 3LPM via NC. Very weak. Patient and family have opted for comfort measures. Pending hosp ice placement. Prognosis is poor. 05/24 patient was seen and examined by bedside no family present. Patient remains on3 L nasal cannula. Appears to be in no distress. Patient is DNR/DNI. Is comfort measures only. Pending hospice placement. Case management working on arrangements 05/25 patient was seen and examined by bedside with family present. Patient appears to be in no distress. Patient remains comfort measures only. He is pending hospice placement. Family by bedside has no questions or concerns at this time. Case management working on arrangements 05/26 patient was seen and examined by bedside family present. Patient appears comfortable no distress. As per family by bedside they have no concerns at this time. Patient remains comfort measures only currently pending hospice placement. Case management working arrangements 05/27 patient was seen and examined at bedside family present. Patient appears to be no distress. Patient remains comfort measures only. Case management continues to work on hospice placement. Plan: Comfort measures CM arranging hospice at hospice home REVIEW OF SYSTEMS: Unable to obtain PHYSICAL EXAM: GENERAL: Chronically ill 84-year-old male lying in bed no obvious signs and symptoms of distress Vital Signs (last 8hr) Date Time Temp Pulse Resp B/P (MAP) Pulse Ox O2 Delivery O2 Flow Rate FiO2 05/27/25 12:00 74 24 N/Cannula Low lpm 3.0 32 LABS: DIAGNOSTICS / RADIOLOGY RESULTS: na PLAN: comfort measures only pending hospice home Code Status: DNR/DNI Disposition: Pending hospice home Other: Case discussed with supervising physician plan of care agreed upon PAOLO ROA [employer] SUPERVISOR May 27, 2025 18:35
--- NOTE | 2025-05-27 19:45 | NUR ---
PRONOUNCEMENT SUMMONED BY STAFF TO PATIENT'S ROOM. PT. SUPINE IN BED. NO FAMILY PRESENT AT THIS TIME. NO BLOOD PRESSURE, HEART TONES OR BREATH SOUNDS AUDIBLE ON AUSCULTATION. PUPILS FIXED AND DILATED. TIME OF : 1946.
--- NOTE | 2025-05-27 20:10 | NUR ---
FAMILY FAMILY MEMBERS HAVE ARRIVED AND ARE, NOW, AWARE THAT THE PATIENT .
--- NOTE | 2025-05-27 21:10 | DS ---
NOTE Date/Time of : [05/27/20251944 ] Code Status: [DNR ] Events prior to patient's : [ACUTE HYPOXIC RESP FAILURE ] Events related to : [COMFORT MEASURES ] Cause: [COMFORT MEASURES/HOSPICE ] Manner/Autopsy: [ ] Provider Pronouncing : [THANH TORO RN AND SUPERINTENDENT [employer] JUDI WALLACE] Attending Physician: [DR. LILIYA FERNANDES ] PEG FORREST May 27, 2025 21:10
== END 2025-05-27 19:45 | DRG 871 ==
LOC: EDH 13:45 → EDHIP 15:47 → 2DH 05-17 02:27 → 3BH 05-18 15:10 → UNDODISIN 05-27 21:25
PROVIDERS: ADMIT Internal Medicine Critical Care Medicine; ATTEND Internal Medicine Critical Care Medicine
PROC: 5A09357 Assistance with Respiratory Ventilation, Less than 24 Consecutive Hours, Continuous Positive Airway Pressure (ICD-10-PCS; principal; 2025-05-15)
PROC: 5A09357 Assistance with Respiratory Ventilation, Less than 24 Consecutive Hours, Continuous Positive Airway Pressure (ICD-10-PCS; 2025-05-16)
PROC: 5A09357 Assistance with Respiratory Ventilation, Less than 24 Consecutive Hours, Continuous Positive Airway Pressure (ICD-10-PCS; 2025-05-26)
DX: A41.9 Sepsis, unspecified organism (principal); G93.41 Metabolic encephalopathy; J69.0 Pneumonitis due to inhalation of food and vomit; J96.01 Acute respiratory failure with hypoxia; N17.9 Acute kidney failure, unspecified; J90 Pleural effusion, not elsewhere classified; N30.00 Acute cystitis without hematuria; I48.20 Chronic atrial fibrillation, unspecified; D84.9 Immunodeficiency, unspecified; Z68.1 Body mass index [BMI] 19.9 or less, adult; I25.10 Atherosclerotic heart disease of native coronary artery without angina pectoris; I10 Essential (primary) hypertension; E87.70 Fluid overload, unspecified; E83.51 Hypocalcemia; G62.9 Polyneuropathy, unspecified; R54 Age-related physical debility; R62.7 Adult failure to thrive; I71.40 Abdominal aortic aneurysm, without rupture, unspecified; I27.20 Pulmonary hypertension, unspecified; R13.12 Dysphagia, oropharyngeal phase; R63.30 Feeding difficulties, unspecified; Z66 Do not resuscitate; Z74.01 Bed confinement status; Z51.5 Encounter for palliative care; Z85.038 Personal history of other malignant neoplasm of large intestine; Z85.46 Personal history of malignant neoplasm of prostate; Z85.51 Personal history of malignant neoplasm of bladder; Z86.718 Personal history of other venous thrombosis and embolism; Z85.72 Personal history of non-Hodgkin lymphomas; Z90.49 Acquired absence of other specified parts of digestive tract; Z93.6 Other artificial openings of urinary tract status; Z95.828 Presence of other vascular implants and grafts
CPT/HCPCS: 36415; 36600; 71045; 80048; 80053; 81001; 82435; 82803; 82947; 82948; 83605; 83690; 83735; 83880; 84100; 84132; 84145; 84295; 84484; 85018; 85025; 85027; 85378; 85610; 85651; 85730; 86140; 87040; 87086; 87186; 87426; 87804; 93005; 93970; 94640; 94660; 94664; 99291; G0378; J0692; J0696; J1630; J1642; J1938; J2020; J2270; J2919; J3490; J7030